=== PATIENT | male | born 1960 | race American Indian/Alaskan Native ===

== ENCOUNTER 2018-10-01 16:15 | Observation (INO) | payer MEDICARE, MEDICAID ==
[2018-10-01 17:10] LABS: #Eosinphils 0.2 thou/uL (0.0-0.7); #Lymphocytes 1.7 thou/uL (1.20-3.40); #Monocytes 0.8 thou/uL (0.11-0.59); #Neutrophils 8.4 thou/uL (1.40-6.50); %Basophils 0.4 % (0.0-1.0); %Eosinophils 1.6 % (0.0-10.0); %Lymphocytes 15.6 % (21.0-51.0); %Monocytes 7.4 % (0.0-10.0); Hemoglobin 15.6 g/dL (14.0-18.0); Mean Corpuscular Hemoglobin 29.1 pg (27.0-31.0); Mean Platelet Volume 10.1 fL (7.4-10.4); Platelet Count 168 thou/uL (130-400); Red Blood Cell (RBC) Count 5.35 mill/uL (4.70-6.10); White Blood Cell (WBC) Count 11.1 thou/uL (4.8-10.8)
[2018-10-01 17:49] LABS: CKMB 5.1 ng/mL (0-6.6)
--- NOTE | 2018-10-01 17:52 | RAD ---
EXAM: CHEST ONE VIEW HISTORY: Cough. Hyperglycemia. COMPARISON: None FINDINGS: Cardiac silhouette is at the upper limits of normal and magnified by projection. The pulmonary vascul ature is within normal limits. The lungs are clear. The osseous structures are intact. IMPRESSION: No acute cardiopulmonary process.
[2018-10-01 17:54] LABS: ALT (SGPT) 12 U/L (8-55); AST (SGOT) 11 U/L (5-34); Albumin 3.1 g/dL (3.5-5.0); Alkaline Phosphatase 109 U/L (40-150); Anion Gap 17 mmol/L (10-20); BUN (Urea Nitrogen) 24 mg/dL (8.4-25.7); Bilirubin, Total 0.5 mg/dL (0.2-1.2); Calc. Creatinine Clearance 0 mL/min (70-130); Calcium 8.8 mg/dL (7.8-10.44); Carbon Dioxide 22 mmol/L (22-29); Chloride 103 mmol/L (98-107); Estimated GFR-MDRD 64; Globulin 3.5 g/dL (2.4-3.5); Glucose 291 mg/dL (70-105); Potassium 4.5 mmol/L (3.5-5.1); Protein, Total 6.6 g/dL (6.0-8.3); Sodium 137 mmol/L (136-145)
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
[2018-10-01] MEDS ORDERED: Aspirin Chewable 81 MG TAB ONE (18:40)
[2018-10-01] MEDS ORDERED: Furosemide 40 MG TAB PO SCH (19:50)
[2018-10-01] MEDS ORDERED: Dextrose 50% Abboject 50 ML SYRINGE SLOW IVP PRN (19:50)
[2018-10-01] MEDS ORDERED: Calcium Carbonate 500 MG ChewTAB PO PRN (19:50)
[2018-10-01] MEDS ORDERED: Dextrose 5% in Water 1,000 ML IV PRN (19:50)
[2018-10-01 20:08] LABS: Hemoglobin A1c 8.8 % (4.0-6.0)
[2018-10-01] MEDS ORDERED: Insulin Glargine 40 UNITS in Pre-Filled Syringe 1 EACH SC SCH (21:00)
[2018-10-01 21:01] LABS: Troponin I 0.031 ng/mL (< 0.028)
[2018-10-01] MEDS: Nicotine 14 MG PATCH TOP SCH ×2 (21:23→21:28)
[2018-10-01] MEDS: Tamsulosin HCl 0.4 MG CAP PO SCH (21:24)
[2018-10-01] MEDS ORDERED: Vancomycin HCl 1.5 GM in Sodium Chloride 0.9% 250 ML 300 ML IVPB SCH (23:00)
[2018-10-01 23:22] LABS: Bilirubin Negative (Negative); Blood, Urine Moderate (Negative); Clarity CLEAR (Clear); Glucose, Urine (Dipstick) >=1000 mg/dL (Negative); Leukocyte Negative (Negative); Nitrite Negative (Negative); Protein, Urine (Dipstick) > or equal to 300 mg/dL (Neg-Trace); Specific Gravity, Urine 1.021 (1.002-1.036)
[2018-10-01 23:25] LABS: Bacteria/HPF None Seen HPF (None Seen); Hyaline Casts/LPF 0-3 HYALINE CAST LPF (0-3 Hyaline); Pathc Cast-AUWi Flag 0.68 (0-2.49); RBC/HPF 21-50 HPF (0-3); Squamous Epithelial 0-3 HPF (0-3); WBC/HPF 0-3 HPF (0-3)
[2018-10-01 23:28] LABS: Troponin I 0.035 ng/mL (< 0.028)
[2018-10-02] MEDS: Piperacillin/Tazobactam 3.375 GM in Sodium Chloride 0.9% 100 ML IVPB SCH ×2 (00:08→05:51)
[2018-10-02] MEDS ORDERED: Apixaban 5 MG TAB PO SCH (01:15)
[2018-10-02] MEDS ORDERED: Melatonin 3 MG TAB PO PRN (01:47)
[2018-10-02] MEDS ORDERED: Acetaminophen 325 MG TAB PO PRN (01:48)
[2018-10-02] MEDS: HumaLOG 300 UNITS/3 ML VIAL SC PRN ×2 (05:54→12:38)
[2018-10-02 06:15] LABS: Band 1 % (5-11); Hemoglobin 13.3 g/dL (14.0-18.0); Lymphocytes 8 % (21-51); MDiff Complete? YES; Mean Corpuscular HGB CONC 32.6 g/dL (32.0-36.0); Mean Corpuscular Hemoglobin 29.8 pg (27.0-31.0); Mean Corpuscular Volume 91.6 fL (78.0-98.0); Mean Platelet Volume 10.8 fL (7.4-10.4); Monocytes 4 % (0-10); Neutrophil 86 % (42-75); Platelet Count 145 thou/uL (130-400); Platelet Morphology Comment Appears Adequate; RBC Distribution Width 15.3 % (11.5-14.5); RBC Morphology Normal; Reactive Lymphocytes 1 % (0-10); Red Blood Cell (RBC) Count 4.45 mill/uL (4.70-6.10); White Blood Cell (WBC) Count 8.8 thou/uL (4.8-10.8)
[2018-10-02 06:20] LABS: Anion Gap 13 mmol/L (10-20); BUN (Urea Nitrogen) 24 mg/dL (8.4-25.7); Calc. Creatinine Clearance 70 mL/min (70-130); Calcium 8.2 mg/dL (7.8-10.44); Carbon Dioxide 23 mmol/L (22-29); Cardiac Risk 7.1 (Less than 4.5); Chloride 104 mmol/L (98-107); Cholesterol 127 mg/dl (< 200 Desired); Estimated GFR-MDRD 56; Glucose 484 mg/dL (70-105); HDL Cholesterol 18 mg/dL (>60 Neg Risk); LDL Cholesterol, Calculated 44 mg/dL; Potassium 3.8 mmol/L (3.5-5.1); Sodium 136 mmol/L (136-145); Triglycerides 326 mg/dL (Less than 150)
--- NOTE | 2018-10-02 06:47 | PDOC.FM ---
- Subjective Subjective: Pt refused stress test stating that he has a bad feeling about it and has had a family member have a heart attack with a stress test. He is decisional at the time. He denies chest pain, SOB, suprapubic pain, burning on urination, nausea, or vomiting. He reports a history of diarrhea but none since he has been here. He reports RLQ tenderness. - Objective MAR Reviewed: Yes Vital Signs & Weight: Vital Signs (12 hours) Temp Pulse Resp BP Pulse Ox 10/02/18 04:10 98.2 F 88 18 163/81 H 94 L 10/01/18 23:15 98.7 F 95 20 159/74 H 95 10/01/18 20:00 97 F L 92 92 H 165/90 H 97 Weight Admit Weight 80.286 kg Weight 80.286 kg I&O: 09/30/18 10/01/18 10/02/18 06:59 06:59 06:59 Intake Total 1170 Output Total 775 Balance 395 Result Diagrams: 10/02/18 05:49 10/02/18 05:49 Phys Exam - Physical Examination Constitutional: NAD HEENT: moist MMs Neck: no JVD, full ROM Respiratory: no wheezing, clear to auscultation bilateral Cardiovascular: RRR, no significant murmur Gastrointestinal: soft, positive bowel sounds RLQ ttp mildly distended Musculoskeletal: edema present (1+ pitting edema) Psychiatric: normal affect, A&O x 3 Skin: cap refill <2 seconds Dx/Plan (1) CHF (congestive heart failure) Code(s): I50.9 - HEART FAILURE, UNSPECIFIED Status: Acute (2) Elevated troponin Code(s): R74.8 - ABNORMAL LEVELS OF OTHER SERUM ENZYMES Status: Acute (3) Foot ulcer due to secondary DM Code(s): E13.621 - OTHER SPECIFIED DIABETES MELLITUS WITH FOOT ULCER; L97.509 - NON-PRESSURE CHRONIC ULCER OTH PRT UNSP FOOT W UNSP SEVERITY Status: Acute (4) HLD (hyperlipidemia) Code(s): E78.5 - HYPERLIPIDEMIA, UNSPECIFIED Status: Chronic (5) HTN (hypertension) Code(s): I10 - ESSENTIAL (PRIMARY) HYPERTENSION Status: Chronic (6) Insulin dependent diabetes mellitus Code(s): E11.9 - TYPE 2 DIABETES MELLITUS WITHOUT COMPLICATIONS; 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 - 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 OF INSULIN Status: Chronic - Plan Plan: This is a 58 yo male with a pmh of CAD, HTN, HLD, DM2, CHF Indeterminate troponin with Twave inversion -Multiple risk factors, heart score of 5 -Asymptomatic -NPO, holding stress test until further notice, will change diet later this morning -ASA daily RLQ abdominal pain -Lipase negative, will monitor Afib -Rate controlled, continue home meds Malodorous urine -UA not supportive of UTI -Likely deescalate abx IDDMII -A1c 8.8 -Continue home med dose, Lantus 45U qAM, 48U qPM -SSI, ACHS glu checks CHF -Strict I&Os -Home lasix -continue home meds Hx of CVA -PT/OT consulted -CM for rehab placement -Wheelchair bound Right diabetic foot ulcer -Consult wound care HLD -Continue home meds HTN -Continue home meds Tobacco abuse -Nicotine patch PRN -Encourage cessation BPH -Continue home meds Addendum - Attending - Attending Attestation Date/Time: 10/02/18 1130 I personally evaluated the patient and discussed the management with Dr. Suarez I agree with the History, Examination, Assessment and Plan documented above with any addition or exceptions noted below. Patient declines stress testing he is aware of our concern for heart disease and benefits of obtaining more information. He agrees to echocardiogram will continue to evaluate and intensify BS control.
[2018-10-02] MEDS ORDERED: Insulin Glargine 45 UNITS in Pre-Filled Syringe 1 EACH SC SCH ×2 (09:00→21:00)
[2018-10-02] MEDS: Apixaban 5 MG TAB PO SCH ×2 (09:31→22:00)
[2018-10-02] MEDS: Aspirin 325 mg Enteric Coated Tablet PO SCH (09:31)
[2018-10-02] MEDS: Losartan 25 MG TAB PO SCH (09:31)
[2018-10-02] MEDS: Furosemide 40 MG TAB PO SCH (09:31)
[2018-10-02] MEDS: Nicotine 21 MG PATCH TD SCH (09:59)
--- NOTE | 2018-10-02 11:56 | ULT ---
EXAM: Renal ultrasound: INDICATIONS: Hematuria COMPARISON: None. FINDINGS: Both kidneys have a normal sonographic appearance. No evidence of hydronephrosis. Cortical echogenicity is normal. Bladder is mildly distended. Mild bladder wall thickening is noted. Bilateral ureteral jets identifie d. Tiny amount of free fluid seen superior to both kidneys. IMPRESSION: Mild bladder wall thickening. Consider cystitis. Tiny amount of free fluid superior to both kidneys.
[2018-10-02] MEDS ORDERED: cefTRIAXone\\ROCEPHIN 2 GM in Sodium Chloride 0.9% 100 ML IVPB SCH (12:00)
[2018-10-02] MEDS ORDERED: Metoprolol Tartrate 100 MG TAB PO ONE (12:33)
[2018-10-02] MEDS: Tamsulosin HCl 0.4 MG CAP PO SCH (22:01)
[2018-10-02] MEDS ORDERED: Labetalol HCl 100 MG/20 ML VIAL SLOW IVP SCH (23:45)
[2018-10-02] MEDS ORDERED: diphenhydrAMINE 25 MG CAP PO SCH (23:45)
--- NOTE | 2018-10-03 06:32 | PDOC.FM ---
- Subjective Subjective: Mr. Green is resting comfortably in bed, complaining of a headache and sore throat. denies CP or SOB - Objective Vital Signs & Weight: Vital Signs (12 hours) Temp Pulse Resp BP BP Pulse Ox 10/03/18 03:45 97.7 F 76 16 184/97 H 98 10/03/18 00:25 183/93 H 10/03/18 00:10 89 186/107 H 10/02/18 23:33 186/108 H 10/02/18 23:15 87 197/93 H 10/02/18 22:00 98.1 F 81 18 175/84 H 96 Weight Admit Weight 80.286 kg Weight 80.286 kg I&O: 10/01/18 10/02/18 10/03/18 06:59 06:59 06:59 Intake Total 1170 1442 Output Total 775 Balance 395 1442 Result Diagrams: 10/03/18 06:00 10/03/18 06:00 Phys Exam - Physical Examination Constitutional: NAD HEENT: moist MMs Neck: no JVD Gastrointestinal: no distention Musculoskeletal: no edema Neurological: moves all 4 limbs Psychiatric: normal affect Skin: no rash Dx/Plan (1) CHF (congestive heart failure) Code(s): I50.9 - HEART FAILURE, UNSPECIFIED Status: Acute (2) Elevated troponin Code(s): R74.8 - ABNORMAL LEVELS OF OTHER SERUM ENZYMES Status: Acute (3) HLD (hyperlipidemia) Code(s): E78.5 - HYPERLIPIDEMIA, UNSPECIFIED Status: Chronic (4) HTN (hypertension) Code(s): I10 - ESSENTIAL (PRIMARY) HYPERTENSION Status: Chronic (5) Insulin dependent diabetes mellitus Code(s): E11.9 - TYPE 2 DIABETES MELLITUS WITHOUT COMPLICATIONS; 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 Status: Chronic - Plan Plan: Indeterminate troponin with Twave inversion - Multiple risk factors, heart score of 5, Asymptomatic - pt declining stress test at this time, r/b/i explained, pt has intact decision making capacity - ASA daily RLQ abdominal pain -Lipase negative, will monitor Afib -Rate controlled, continue home meds Malodorous urine -UA not supportive of UTI -dc abx IDDMII -A1c 8.8 -Continue home med dose, Lantus 45U qAM, 48U qPM -SSI, ACHS glu checks - consider increasing lantus dose CHF -Strict I&Os -Home lasix -continue home meds Hx of CVA -PT/OT consulted -CM for SNF, rehab screen -Wheelchair bound Right diabetic foot ulcer -Consult wound care HLD -Continue home meds HTN -Continue home meds - consider adding additional medication today for consistently elevated BPs Tobacco abuse -Nicotine patch PRN -Encourage cessation BPH -Continue home meds Dispo: tighter BP and glu control today, rehab vs SNF
[2018-10-03 06:43] LABS: Band 1 % (5-11); Eosinophils 2 % (0-10); Hemoglobin 14.8 g/dL (14.0-18.0); Lymphocytes 26 % (21-51); MDiff Complete? YES; Mean Corpuscular HGB CONC 31.3 g/dL (32.0-36.0); Mean Corpuscular Hemoglobin 28.5 pg (27.0-31.0); Mean Corpuscular Volume 91.2 fL (78.0-98.0); Mean Platelet Volume 10.1 fL (7.4-10.4); Monocytes 3 % (0-10); Neutrophil 66 % (42-75); Platelet Count 157 thou/uL (130-400); Platelet Morphology Comment Appears Adequate; RBC Distribution Width 15.1 % (11.5-14.5); Reactive Lymphocytes 1 % (0-10); Red Blood Cell (RBC) Count 5.19 mill/uL (4.70-6.10); White Blood Cell (WBC) Count 8.8 thou/uL (4.8-10.8)
[2018-10-03 06:49] LABS: Anion Gap 14 mmol/L (10-20); BUN (Urea Nitrogen) 21 mg/dL (8.4-25.7); Calc. Creatinine Clearance 89 mL/min (70-130); Calcium 8.6 mg/dL (7.8-10.44); Carbon Dioxide 24 mmol/L (22-29); Chloride 106 mmol/L (98-107); Estimated GFR-MDRD 73; Glucose 221 mg/dL (70-105); Potassium 3.9 mmol/L (3.5-5.1); Sodium 140 mmol/L (136-145)
[2018-10-03] MEDS: Aspirin 325 mg Enteric Coated Tablet PO SCH (08:09)
[2018-10-03] MEDS: Apixaban 5 MG TAB PO SCH (08:09)
[2018-10-03] MEDS: Losartan 25 MG TAB PO SCH (08:09)
[2018-10-03] MEDS: Furosemide 40 MG TAB PO SCH (08:10)
[2018-10-03] MEDS ORDERED: Digoxin 0.125 MG TAB PO SCH (09:00)
[2018-10-03] MEDS ORDERED: Insulin Glargine 50 UNITS in Pre-Filled Syringe 1 EACH SC SCH ×2 (09:00→21:00)
[2018-10-03] MEDS ORDERED: hydrALAZINE 20 MG/ML VIAL SLOW IVP PRN (09:11)
[2018-10-03 11:16] VITALS: TEMP 98.7
[2018-10-03] MEDS: HumaLOG 300 UNITS/3 ML VIAL SC PRN ×2 (11:20→18:34)
[2018-10-03] MEDS: Nicotine 21 MG PATCH TD SCH (11:20)
--- NOTE | 2018-10-03 14:32 | PRG ---
DATE OF SERVICE: 10/03/2018 Mr. Green is a physeal dave, who was admitted with poorly-controlled diabetes and hyperglycemia. He was also initially noted to have an odiferous urine, but has no symptoms of UTI such as dysuria, frequency, or burning on urination. I feel it would be okay to stop his broad-spectrum antibiotics. He was noticed to have microhematuria on his initial urinalysis, which to my knowledge has not been worked up. We did perform a renal ultrasound yesterday there was mild bladder wall thickening with a tiny minor free fluid superior to both kidneys. Both kidneys had a normal sonographic appearance. He likely will need an outpatient cystoscopy to further evaluate his microhematuria. In the event, he is nearing a point where he can be discharged and have other testing done as an outpatient. Job ID: [id number]
[2018-10-03 14:33] VITALS: BMI 27.1
[2018-10-03 15:40] VITALS: BP 139/82
--- NOTE | 2018-10-03 23:53 | DIS ---
DATE OF ADMISSION: 10/01/2018 DATE OF DISCHARGE: 10/03/2018 CONSULTS: None. IMAGING: Chest x-ray significant for no acute cardiothoracic abnormality. Renal ultrasound significant for mild bladder wall thickening, consider cystitis , tiny minor free fluid superior to both kidneys. Echocardiogram significant for ejection fraction visually estimated at 50% to 55 %, noted atrial fibrillation, inferoseptal and inferoapical hypokinesis. DISCHARGE MEDICATIONS: 1. Flomax 0.4 mg daily. 2. Losartan 100 mg p.o. q.a.m. 3. Furosemide 40 mg p.o. q.a.m. 4. Eliquis 5 mg p.o. b.i.d. 5. Insulin 45 units subcu at bedtime. 6. Insulin detemir 50 units subcu q.a.m. 7. Augmentin for 7 days. 8. Digoxin 0.125 mg p.o. daily. 9. Sertraline 50 mg p.o. daily. PRIMARY DIAGNOSIS: Indeterminate troponin with T-wave inversion. SECONDARY DIAGNOSES: 1. Right lower quadrant abdominal pain. 2. Atrial fibrillation. 3. Malodorous urine. 4. Insulin-dependent diabetes mellitus, type 2. 5. Congestive heart failure. 6. History of cerebrovascular accident. 7. Right diabetic foot ulcer. 8. Hyperlipidemia. 9. Hypertension. 10. Tobacco abuse. 11. BPH. HISTORY OF PRESENT ILLNESS/HOSPITAL COURSE: Mr. Green is a 58-year-old male with past medical history of diabetes, hypertension, hyperlipidemia, atrial fibrillation, on anticoagulation, presenting with hyperglycemia as noted by home health. Upon presentation to the emergency department, he was told to have malodorous urine as well as blood glucose as above 300. He was determined not to be in DKA, but did have indeterminate troponin at that time. Denied any cardiac type symptoms. He reported a history of CVA and that at one time, completed rehab. He was able to walk, but is currently wheelchair bound. The patient was admitted to the hospital for trending of troponins. It was recommended that the patient to have a cardiac stress test. After risks, benefits and indications were explained, the patient declined cardiac stress at this time. The patient had elevated blood glucose and blood pressure throughout his hospital stay. Additional blood pressure medicines and increasing in his Lantus were added on. The patient was tolerating p.o. well and able to transfer to wheelchair, but due to deconditioning from the patient's recent medical complications, it was determined that inpatient rehab would be best for successful patient return home. DISCHARGE INSTRUCTIONS: Location: Inpatient rehab. Diet: Heart healthy, low-sodium diabetic. Activity: As tolerated with PT and OT. Followup: Follow up with Dr. Farris at inpatient rehab. Job ID: [id number] [facility]
[2018-10-04 07:19] LABS: Total PSA 0.6 ng/mL (0.0-4.0)
[2018-10-04] MEDS ORDERED: Amlodipine 5 MG TAB PO SCH (09:00)
== END 2018-10-03 18:45 | disposition home health service (06) ==
LOC: ERS 16:15 → 2NO 19:42
PROVIDERS: ADMIT Family Medicine; ATTEND Family Medicine
DX: R74.8 Abnormal levels of other serum enzymes (principal); E11.65 Type 2 diabetes mellitus with hyperglycemia; R10.31 Right lower quadrant pain; I11.0 Hypertensive heart disease with heart failure; I50.9 Heart failure, unspecified; E78.5 Hyperlipidemia, unspecified; E11.621 Type 2 diabetes mellitus with foot ulcer; L97.519 Non-pressure chronic ulcer of other part of right foot with unspecified severity; F17.210 Nicotine dependence, cigarettes, uncomplicated; N40.0 Benign prostatic hyperplasia without lower urinary tract symptoms; I25.2 Old myocardial infarction; F10.11 Alcohol abuse, in remission; I48.2 Chronic atrial fibrillation; I25.10 Atherosclerotic heart disease of native coronary artery without angina pectoris; Z79.01 Long term (current) use of anticoagulants; Z79.4 Long term (current) use of insulin; Z79.899 Other long term (current) drug therapy; Z86.73 Personal history of transient ischemic attack (TIA), and cerebral infarction without residual deficits; Z88.5 Allergy status to narcotic agent; Z88.6 Allergy status to analgesic agent; Z99.3 Dependence on wheelchair
CPT/HCPCS: 71045; 76770; 80048 ×2; 80053; 80061; 81001; 82010; 82553; 82962 ×3; 83036; 83690; 83880; 84145; 84153; 84154; 84484 ×2; 85007 ×2; 85025; 85027 ×2; 87040; 87077; 87086; 93005; 93306; 94760 ×2; 96361; 96374; 96375; 97110; 97139 ×4; 97530 ×3; 99285; G0378 ×2; 36415; 36416; 96360; J0360; J0696; J1825; J2543; J3370; J3490; J7050; Q0163

== ENCOUNTER 2019-08-03 20:27 | Inpatient (IN) | payer MEDICARE, MEDICAID ==
[~2019-08-03 20:27] MED LIST: Rocuronium Bromide 10 MG/ML (10ML VIAL) ONE; Sodium Chloride 0.9% (PF) 10 ML VIAL ONE
[2019-08-03] MEDS ORDERED: Piperacillin/Tazobactam 4.5 GM VIAL ONE (20:56)
[2019-08-03] MEDS ORDERED: Furosemide 20 MG/2 ML VIAL ONE (20:56)
[2019-08-03 21:15] LABS: #Eosinphils 0.1 thou/uL (0.0-0.7); #Lymphocytes 1.2 thou/uL (1.20-3.40); #Neutrophils 17.3 thou/uL (1.40-6.50); %Basophils 0.2 % (0.0-1.0); %Eosinophils 0.4 % (0.0-10.0); %Lymphocytes 6.3 % (21.0-51.0); %Monocytes 5.1 % (0.0-10.0); %Neutrophils 87.9 % (42.0-75.0); Hemoglobin 13.1 g/dL (14.0-18.0); Mean Corpuscular HGB CONC 33.4 g/dL (32.0-36.0); Mean Corpuscular Hemoglobin 30.1 pg (27.0-31.0); Mean Corpuscular Volume 89.9 fL (78.0-98.0); Mean Platelet Volume 9.2 fL (7.4-10.4); Platelet Count 290 thou/uL (130-400); RBC Distribution Width 13.1 % (11.5-14.5); Red Blood Cell (RBC) Count 4.37 mill/uL (4.70-6.10); White Blood Cell (WBC) Count 19.7 thou/uL (4.8-10.8)
--- NOTE | 2019-08-03 21:17 | RAD ---
PORTABLE CHEST: 08/03/19 HISTORY: Peripheral edema. COMPARISON: 10/15/18. The lungs are clear. Heart and mediastinum unremarkable. Vascular markings normal. IMPRESSION: Unremarkable chest. POS: [facility]
[2019-08-03 21:38] LABS: ALT (SGPT) Less than 7 U/L (8-55); AST (SGOT) 6 U/L (5-34); Albumin 2.9 g/dL (3.5-5.0); Alkaline Phosphatase 116 U/L (40-110); Anion Gap 16 mmol/L (10-20); BUN (Urea Nitrogen) 27 mg/dL (8.4-25.7); Bilirubin, Total 0.2 mg/dL (0.2-1.2); CK (CPK) 76 U/L (30-200); Calc. Creatinine Clearance 0 mL/min (70-130); Calcium 8.2 mg/dL (7.8-10.44); Carbon Dioxide 20 mmol/L (22-29); Chloride 99 mmol/L (98-107); Estimated GFR-MDRD 42; Globulin 3.6 g/dL (2.4-3.5); Glucose 336 mg/dL (70-105); Magnesium 1.6 mg/dL (1.6-2.6); Potassium 3.5 mmol/L (3.5-5.1); Protein, Total 6.5 g/dL (6.0-8.3); Sodium 131 mmol/L (136-145)
[2019-08-03] MEDS ORDERED: Nicotine 21 MG PATCH TOP SCH (22:00)
[2019-08-03] MEDS ORDERED: Vancomycin 1 GM/200 ML BAG ONE (22:12)
[2019-08-03] MEDS ORDERED: Acetaminophen 500 MG TAB ONE (22:12)
[2019-08-03] MEDS ORDERED: Calcium Carbonate 500 MG ChewTAB PO PRN (23:02)
[2019-08-03] MEDS ORDERED: Senokot S 8.6-50 MG TAB PO PRN (23:02)
[2019-08-03] MEDS ORDERED: Vancomycin HCl 1 GM in Sodium Chloride 0.9% 250 ML 300 ML IVPB SCH (23:02)
[2019-08-03] MEDS ORDERED: Bisacodyl 10 MG SUPP PR PRN (23:02)
[2019-08-03] MEDS ORDERED: Guaifenesin DM 100-10/5 ML UDCUP PO PRN (23:02)
[2019-08-03] MEDS ORDERED: Ondansetron PF 4 MG/2 ML Vial IVP PRN (23:02)
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
[2019-08-04 00:08] LABS: Iron 13 ug/dL (65-175); Iron Binding Capacity, Total 179 mcg/dL (261-462)
[2019-08-04] MEDS ORDERED: Acetaminophen 325 MG TAB PO PRN (01:23)
[2019-08-04] MEDS ORDERED: diphenhydrAMINE 25 MG CAP PO PRN (01:29)
[2019-08-04] MEDS ORDERED: traMADol HCl 50 MG TAB PO SCH (01:30)
[2019-08-04] MEDS ORDERED: Piperacillin/Tazobactam 2.25 GM in Sodium Chloride 0.9% 100 ML IVPB SCH ×2 (05:00→13:00)
[2019-08-04] MEDS ORDERED: Calcium Carbonate 500 MG ChewTAB PO PRN (05:15)
[2019-08-04] MEDS ORDERED: Bisacodyl 10 MG SUPP PR PRN (05:15)
[2019-08-04] MEDS ORDERED: Ondansetron PF 4 MG/2 ML Vial IVP PRN (05:16)
[2019-08-04] MEDS ORDERED: Senokot S 8.6-50 MG TAB PO PRN (05:17)
[2019-08-04] MEDS ORDERED: Insulin Regular 300 UNITS/3 ML VIAL SC SCH (05:30)
[2019-08-04] MEDS: Furosemide 40 MG/4 ML VIAL SLOW IVP SCH ×2 (05:36→14:50)
[2019-08-04] MEDS: Piperacillin/Tazobactam 2.25 GM in Sodium Chloride 0.9% 100 ML IVPB SCH ×3 (05:56→20:02)
[2019-08-04] MEDS ORDERED: Furosemide 40 MG/4 ML VIAL SLOW IVP SCH (06:00)
[2019-08-04] MEDS: Digoxin 0.125 MG TAB PO SCH (07:44)
[2019-08-04] MEDS: Metoprolol Tartrate 25 MG TAB PO SCH ×2 (07:44→20:08)
[2019-08-04] MEDS ORDERED: Digoxin 0.125 MG TAB PO SCH (09:00)
[2019-08-04] MEDS ORDERED: FLU VACC QS2019-20(6MOS UP)/PF 60 MCG/0.5 ML SYRINGE IM ONE (09:00)
[2019-08-04] MEDS ORDERED: Enoxaparin Sodium 30 MG/0.3 ML SYRINGE SC SCH ×2 (09:00)
[2019-08-04] MEDS ORDERED: Metoprolol Tartrate 25 MG TAB PO SCH (09:00)
[2019-08-04] MEDS ORDERED: Non-Formulary Item 1 EACH (Insulin Detemir [Levemir Flextouch] 20 UNIT) SQ SCH (09:00)
[2019-08-04] MEDS ORDERED: Famotidine 20 MG TAB PO SCH ×2 (09:00)
--- NOTE | 2019-08-04 09:46 | ULT ---
Bilateral lower extremity arterial vascular duplex with color and spectral Doppler imaging: HISTORY: Peripheral vascular disease FINDINGS: Right and left lower extremities are evaluated from the groin to ankle including visualized common fe moral artery, profunda femoral artery, superficial femoral artery, popliteal artery, anterior tibial artery, posterior tibial artery, and dorsalis pedis arteries. There is very abnormal monophasic flow throughout the entirety of both right and left lower extremiti es. Minimal increased velocity in the right profunda artery of 148 cm/s. There is also some minimal increased flow in the proximal left superficial femoral artery, at 132 cm/s. IMPRESSION: Extensive bilateral diffuse atherosclerotic arterial vascular disease with abnormal monophasic wavefo tramaine throughout the entirety of both lower extremities as well as some focal increased velocity in the right profunda femoral artery and left proximal superficial femoral artery.
[2019-08-04] MEDS: Insulin Glargine 20 UNITS in Pre-Filled Syringe 1 EACH SC SCH ×2 (09:59→20:11)
[2019-08-04] MEDS: traMADol HCl 50 MG TAB PO PRN ×2 (11:49→16:56)
[2019-08-04 11:52] LABS: Hemoglobin 12.1 g/dL (14.0-18.0); Mean Corpuscular HGB CONC 32.2 g/dL (32.0-36.0); Mean Corpuscular Hemoglobin 29.3 pg (27.0-31.0); Mean Corpuscular Volume 91.1 fL (78.0-98.0); Mean Platelet Volume 9.3 fL (7.4-10.4); Platelet Count 291 thou/uL (130-400); RBC Distribution Width 13.2 % (11.5-14.5); Red Blood Cell (RBC) Count 4.11 mill/uL (4.70-6.10); White Blood Cell (WBC) Count 14.9 thou/uL (4.8-10.8)
[2019-08-04 11:53] LABS: #Eosinphils 0.1 thou/uL (0.0-0.7); #Lymphocytes 1.1 thou/uL (1.20-3.40); #Monocytes 0.8 thou/uL (0.11-0.59); #Neutrophils 12.9 thou/uL (1.40-6.50); %Basophils 0.2 % (0.0-1.0); %Eosinophils 0.6 % (0.0-10.0); %Lymphocytes 7.2 % (21.0-51.0); %Monocytes 5.4 % (0.0-10.0); %Neutrophils 86.6 % (42.0-75.0)
[2019-08-04 12:12] LABS: Anion Gap 14 mmol/L (10-20); BUN (Urea Nitrogen) 24 mg/dL (8.4-25.7); Calc. Creatinine Clearance 57 mL/min (70-130); Carbon Dioxide 22 mmol/L (22-29); Chloride 101 mmol/L (98-107); Estimated GFR-MDRD 46; Glucose 261 mg/dL (70-105); Potassium 3.1 mmol/L (3.5-5.1); Sodium 134 mmol/L (136-145)
[2019-08-04 12:24] LABS: Band 1 % (5-11); Eosinophils 1 % (0-10); Lymphocytes 8 % (21-51); MDiff Complete? YES; Monocytes 5 % (0-10); Neutrophil 84 % (42-75); RBC Morphology Normal
[2019-08-04] MEDS ORDERED: Dextrose 5% in Water 1,000 ML IV PRN (12:33)
[2019-08-04] MEDS ORDERED: Dextrose 50% Abboject 50 ML SYRINGE SLOW IVP PRN (12:33)
[2019-08-04] MEDS: HumaLOG 300 UNITS/3 ML VIAL SC PRN (13:05)
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
--- NOTE | 2019-08-04 14:29 | PDOC.HOSPP ---
- Subjective Subjective: Seen and examined. Patient has not walked in the last six weeks to two months. He states that he "I pee in his sleep, and this makes his leg wounds worse, because they are wet". When I discussed with the patient about having a surgeon look at his legs he states that he would refuse any surgery and does not want to see any surgeons. Will have wound care come evaluate the legs and sacral decubitus lesion. Patient on appropriate antibiotics. Patient states that he would like to go to rehab. - Objective Vital Signs & Weight: Vital Signs (12 hours) Temp Pulse Resp BP Pulse Ox 08/04/19 12:53 90 16 97 08/04/19 12:18 98.1 F 94 20 155/80 H 95 08/04/19 08:00 95 08/04/19 07:56 99.2 F 101 H 20 151/82 H 95 08/04/19 07:44 101 H 08/04/19 07:02 90 18 100 08/04/19 05:04 98.3 F 85 14 140/79 93 L Weight Weight 173 lb 3 oz I&O: 08/03/19 08/04/19 08/05/19 06:59 06:59 06:59 Output Total 200 Balance -200 Result Diagrams: 08/04/19 11:20 08/04/19 11:20 Additional Labs: Accuchecks 08/04/19 08/04/19 11:56 05:04 POC Glucose 294 H 417 H Radiology Reviewed by me: Yes Hospitalist ROS - Review of Systems All other systems reviewed; all pertinent +/- noted in HPI/Subj - Medication Medications: Active Medications Generic Name Dose Route Start Last Admin Trade Name Freq PRN Reason Stop Dose Admin Albuterol/Ipratropium 3 ml 08/04/19 07:00 08/04/19 12:53 Duoneb NEB 3 ml [id number] RONI Administration Digoxin 0.125 mg 08/04/19 09:00 08/04/19 07:44 Lanoxin PO 0.125 mg DAILY RONI Administration Furosemide 40 mg 08/04/19 06:00 08/04/19 05:36 Lasix SLOW IVP 40 mg 0600,1400 RONI Administration Insulin Glargine 20 units/ 0.2 mls @ 0 mls/hr 08/04/19 09:00 08/04/19 09:59 Miscellaneous Medication SC 0.2 mls BID RONI Administration Piperacillin Sod/Tazobactam 100 mls @ 200 mls/hr 08/04/19 05:00 08/04/19 12: 12 Sod 2.25 gm/ Sodium Chloride IVPB 100 mls 0500,1300,2100 RONI Administration Insulin Human Lispro 0 units 08/04/19 12:33 08/04/19 13:05 Humalog SC 6 unit .MODERATE SLIDING SC PRN Administration Moderate Correctional Scale Metoprolol Tartrate 25 mg 08/04/19 09:00 08/04/19 07:44 Lopressor PO 25 mg BID RONI Administration Tramadol HCl 100 mg 08/04/19 10:15 08/04/19 11:49 Ultram PO 100 mg Q4H PRN Administration Moderate to Severe Pain (6-10) - Exam General Appearance: NAD, awake alert Eye: anicteric sclera ENT: normocephalic atraumatic, moist mucosa Neck: supple, symmetric, no lymphadenopathy Heart: no murmur, no gallops, no rubs Respiratory: CTAB, no wheezes, no rales, no ronchi, no tachypnea Gastrointestinal: soft, non-tender, non-distended, no guarding, no rigidity Extremities: 2+ LE edema Extremities - other findings: LE skin wounds - see wound pictures for details. Skin - other findings: Decubitus ulcer present on admission - see wound care pictures for details Neurological: cranial nerve grossly intact, no focal deficits Musculoskeletal: generalized weakness Psychiatric: A&O x 3 Hosp A/P (1) Decubitus skin ulcer Code(s): L89.90 - PRESSURE ULCER OF UNSPECIFIED SITE, UNSPECIFIED STAGE Status : Acute (2) Sepsis Code(s): A41.9 - SEPSIS, UNSPECIFIED ORGANISM Status: Acute (3) Ataxia Code(s): R27.0 - ATAXIA, UNSPECIFIED Status: Acute (4) Tobacco abuse Code(s): Z72.0 - TOBACCO USE Status: Acute (5) Alcoholism Code(s): F10.20 - ALCOHOL DEPENDENCE, UNCOMPLICATED Status: Acute (6) CHF (congestive heart failure) Code(s): I50.9 - HEART FAILURE, UNSPECIFIED Status: Acute (7) Foot ulcer due to secondary DM Code(s): E13.621 - OTHER SPECIFIED DIABETES MELLITUS WITH FOOT ULCER; L97.509 - NON-PRESSURE CHRONIC ULCER OTH PRT UNSP FOOT W UNSP SEVERITY Status: Acute (8) HLD (hyperlipidemia) Code(s): E78.5 - HYPERLIPIDEMIA, UNSPECIFIED Status: Chronic (9) HTN (hypertension) Code(s): I10 - ESSENTIAL (PRIMARY) HYPERTENSION Status: Chronic (10) Insulin dependent diabetes mellitus Code(s): E11.9 - TYPE 2 DIABETES MELLITUS WITHOUT COMPLICATIONS; Z79.4 - ASSISTED (CURRENT) USE OF INSULIN Status: Chronic (11) Protein-calorie malnutrition, moderate Code(s): E44.0 - MODERATE PROTEIN-CALORIE MALNUTRITION Status: Acute - Plan Plan: medical unit palliative care consultation for goals of care, recommendations appreciated general surgery was consulted however the patient adamantly refused to talk to any surgeons and refused to have any surgical procedures done on his legs or any other part of his body broad-spectrum IV antibiotics wound cultures de-escalate to culture and sensitivity as able consider infectious disease consult pending culture and sensitivity acute kidney injury present on admission, improved with IV fluids moderate protein calorie malnutrition present on admission extensive tobacco abuse history, nicotine patch history of alcohol abuse, states he has quit ataxia, has not walked in 6-8 weeks PT/ OT Eval and treat Will likely require sub acute placement long and short acting insulin for glucose control blood pressure control G.I. prophylaxis DVT prophylaxis, full dose eliquis home medication continued
[2019-08-04] MEDS ORDERED: Labetalol HCl 100 MG/20 ML VIAL ONE (14:48)
[2019-08-04] MEDS: cloNIDine 0.2mg/24 Hour PATCH TD SCH (15:00)
[2019-08-04] MEDS: Nicotine 21 MG PATCH TD SCH (20:07)
[2019-08-04] MEDS: Apixaban 5 MG TAB PO SCH (20:07)
[2019-08-04] MEDS: Tamsulosin HCl 0.4 MG CAP PO SCH (20:07)
[2019-08-04] MEDS: Famotidine 20 MG TAB PO SCH (20:08)
[2019-08-04] MEDS: Acetaminophen 325 MG TAB PO PRN (20:08)
[2019-08-04] MEDS ORDERED: Tamsulosin HCl 0.4 MG CAP PO SCH (21:00)
[2019-08-04] MEDS: Vancomycin 1 GM in Premix Bag 1 BAG IVPB SCH (21:09)
[2019-08-04] MEDS ORDERED: Vancomycin 1 GM in Premix Bag 1 BAG IVPB SCH (22:00)
[2019-08-05] MEDS: Piperacillin/Tazobactam 2.25 GM in Sodium Chloride 0.9% 100 ML IVPB SCH ×3 (04:53→20:08)
[2019-08-05] MEDS: Furosemide 40 MG/4 ML VIAL SLOW IVP SCH ×2 (05:02→14:33)
[2019-08-05] MEDS: Famotidine 20 MG TAB PO SCH ×2 (08:53→20:07)
[2019-08-05] MEDS: Metoprolol Tartrate 25 MG TAB PO SCH ×2 (08:53→20:06)
[2019-08-05] MEDS: Amlodipine 5 MG TAB PO SCH (08:53)
[2019-08-05] MEDS: Digoxin 0.125 MG TAB PO SCH (08:53)
[2019-08-05] MEDS: Apixaban 5 MG TAB PO SCH ×2 (08:54→20:05)
[2019-08-05] MEDS: Insulin Glargine 20 UNITS in Pre-Filled Syringe 1 EACH SC SCH ×2 (08:56→21:44)
[2019-08-05] MEDS: traMADol HCl 50 MG TAB PO PRN ×2 (08:58→20:07)
[2019-08-05] MEDS ORDERED: Furosemide 40 MG TAB PO SCH (09:00)
[2019-08-05 09:54] LABS: White Blood Cell (WBC) Count 16.5 thou/uL (4.8-10.8)
[2019-08-05 10:06] LABS: Anion Gap 15 mmol/L (10-20); BUN (Urea Nitrogen) 24 mg/dL (8.4-25.7); Calc. Creatinine Clearance 52 mL/min (70-130); Calcium 7.8 mg/dL (7.8-10.44); Carbon Dioxide 23 mmol/L (22-29); Chloride 98 mmol/L (98-107); Estimated GFR-MDRD 41; Glucose 234 mg/dL (70-105); Sodium 132 mmol/L (136-145)
[2019-08-05] MEDS: Acetaminophen 325 MG TAB PO PRN ×2 (11:01→20:07)
[2019-08-05 11:46] LABS: Large Platelets SLIGHT; Lymphocytes 5 % (21-51); MDiff Complete? YES; Mean Corpuscular Hemoglobin 28.2 pg (27.0-31.0); Mean Corpuscular Volume 90.8 fL (78.0-98.0); Mean Platelet Volume 8.8 fL (7.4-10.4); Monocytes 5 % (0-10); Neutrophil 90 % (42-75); Platelet Count 303 thou/uL (130-400); Platelet Morphology Comment Appears Adequate
[2019-08-05] MEDS: HumaLOG 300 UNITS/3 ML VIAL SC PRN (13:00)
--- NOTE | 2019-08-05 13:09 | PDOC.HOSPP ---
- Subjective Subjective: Seen and examined. Patient states that tramadol is working well for pain. Patient voices dissatisfaction with the food. Patient again refusing any surgical consultation or operations of any sort. Will order an MRI of the lower extremity to rule out osteomyelitis. Blood cultures with no growth to date. Afebrile. No pulmonary symptoms. - Objective Vital Signs & Weight: Vital Signs (12 hours) Temp Pulse Pulse Pulse Resp BP BP 08/05/19 12:38 85 16 08/05/19 12:00 97.9 F 97 18 08/05/19 11:10 84 87 127/70 125/77 08/05/19 08:53 97 08/05/19 08:00 08/05/19 07:50 98.3 F 97 20 08/05/19 07:13 88 16 08/05/19 04:00 99.1 F 87 20 BP Pulse Ox Pulse Ox Pulse Ox 08/05/19 12:38 94 L 08/05/19 12:00 114/72 93 L 08/05/19 11:10 96 98 08/05/19 08:53 08/05/19 08:00 92 L 08/05/19 07:50 134/71 92 L 08/05/19 07:13 95 08/05/19 04:00 127/76 97 Weight Admit Weight 173 lb 2.992 oz Weight 173 lb 2.992 oz I&O: 08/04/19 08/05/19 08/06/19 06:59 06:59 06:59 Intake Total 910 Output Total 200 200 Balance -200 710 Result Diagrams: 08/05/19 09:32 08/05/19 09:32 Additional Labs: Accuchecks 08/05/19 08/05/19 08/04/19 12:08 04:29 20:04 POC Glucose 323 H 161 H 110 08/04/19 16:52 POC Glucose 119 H Radiology Reviewed by me: Yes Hospitalist ROS - Review of Systems All other systems reviewed; all pertinent +/- noted in HPI/Subj - Medication Medications: Active Medications Generic Name Dose Route Start Last Admin Trade Name Freq PRN Reason Stop Dose Admin Acetaminophen 650 mg 08/04/19 05:17 08/05/19 11:01 Tylenol PO 650 mg Q4H PRN Administration Headache/Fever or Pain Albuterol/Ipratropium 3 ml 08/04/19 07:00 08/05/19 12:38 Duoneb NEB 3 ml [id number] RONI Administration Amlodipine Besylate 5 mg 08/05/19 09:00 08/05/19 08:53 Norvasc PO 5 mg DAILY RONI Administration Apixaban 5 mg 08/04/19 21:00 08/05/19 08:54 Eliquis PO 5 mg BID RONI Administration Clonidine 0.2 mg 08/04/19 14:00 08/04/19 15:00 [id number] TD 0.2 mg Q7D RONI Administration Digoxin 0.125 mg 08/04/19 09:00 08/05/19 08:53 Lanoxin PO 0.125 mg DAILY RONI Administration Famotidine 40 mg 08/04/19 21:00 08/05/19 08:53 Pepcid PO 40 mg BID RONI Administration Furosemide 40 mg 08/04/19 06:00 08/05/19 05:02 Lasix SLOW IVP 40 mg 0600,1400 RONI Administration Insulin Glargine 20 units/ 0.2 mls @ 0 mls/hr 08/04/19 09:00 08/05/19 08:56 Miscellaneous Medication SC 0.2 mls BID RONI Administration Vancomycin HCl 1 gm/ Device 200 mls @ 200 mls/hr 08/04/19 22:00 08/04/19 21: 09 IVPB 200 mls Q24HR@2200 RONI Administration Piperacillin Sod/Tazobactam 100 mls @ 200 mls/hr 08/04/19 05:00 08/05/19 04: 53 Sod 2.25 gm/ Sodium Chloride IVPB 100 mls 0500,1300,2100 RONI Administration Insulin Human Lispro 0 units 08/04/19 12:33 08/04/19 13:05 Humalog SC 6 unit .MODERATE SLIDING SC PRN Administration Moderate Correctional Scale Metoprolol Tartrate 25 mg 08/04/19 09:00 08/05/19 08:53 Lopressor PO 25 mg BID RONI Administration Nicotine 21 mg 08/04/19 20:00 08/04/19 20:07 Nicoderm Patch TD 21 mg 2000 RONI Administration Sodium Chloride 10 ml 08/04/19 21:00 08/05/19 08:55 Flush - Normal Saline IVF 10 ml Q12HR RONI Administration Tamsulosin HCl 0.4 mg 08/04/19 21:00 08/04/19 20:07 Flomax PO 0.4 mg HS RONI Administration Tramadol HCl 100 mg 08/04/19 10:15 08/05/19 08:58 Ultram PO 100 mg Q4H PRN Administration Moderate to Severe Pain (6-10) - Exam General Appearance: NAD, awake alert Eye: PERRL ENT: normocephalic atraumatic, moist mucosa Neck: supple, symmetric, no lymphadenopathy Heart: no murmur, no gallops, no rubs Respiratory: CTAB, no wheezes, no rales, no ronchi, normal chest expansion Gastrointestinal: soft, non-tender, no guarding, no rigidity Extremities: 2+ LE edema Skin - other findings: LE skin wounds - see wound care pictures for details Neurological: cranial nerve grossly intact, no focal deficits Musculoskeletal: generalized weakness Psychiatric: A&O x 3 Hosp A/P (1) Decubitus skin ulcer Code(s): L89.90 - PRESSURE ULCER OF UNSPECIFIED SITE, UNSPECIFIED STAGE Status : Acute (2) Sepsis Code(s): A41.9 - SEPSIS, UNSPECIFIED ORGANISM Status: Acute (3) Ataxia Code(s): R27.0 - ATAXIA, UNSPECIFIED Status: Acute (4) Tobacco abuse Code(s): Z72.0 - TOBACCO USE Status: Acute (5) Alcoholism Code(s): F10.20 - ALCOHOL DEPENDENCE, UNCOMPLICATED Status: Acute (6) CHF (congestive heart failure) Code(s): I50.9 - HEART FAILURE, UNSPECIFIED Status: Acute (7) Foot ulcer due to secondary DM Code(s): E13.621 - OTHER SPECIFIED DIABETES MELLITUS WITH FOOT ULCER; L97.509 - NON-PRESSURE CHRONIC ULCER OTH PRT UNSP FOOT W UNSP SEVERITY Status: Acute (8) HLD (hyperlipidemia) Code(s): E78.5 - HYPERLIPIDEMIA, UNSPECIFIED Status: Chronic (9) HTN (hypertension) Code(s): I10 - ESSENTIAL (PRIMARY) HYPERTENSION Status: Chronic (10) Insulin dependent diabetes mellitus Code(s): E11.9 - TYPE 2 DIABETES MELLITUS WITHOUT COMPLICATIONS; Z79.4 - RETIREMENT (CURRENT) USE OF INSULIN Status: Chronic (11) Protein-calorie malnutrition, moderate Code(s): E44.0 - MODERATE PROTEIN-CALORIE MALNUTRITION Status: Acute - Plan Plan: medical unit palliative care consultation for goals of care, recommendations appreciated general surgery was consulted however the patient adamantly refused to talk to any surgeons and refused to have any surgical procedures done on his legs or any other part of his body broad-spectrum IV antibiotics wound cultures de-escalate to culture and sensitivity as able MRI LE to R/o Osteomyelitis consider infectious disease consult pending culture and sensitivity acute kidney injury present on admission, improved with IV fluids moderate protein calorie malnutrition present on admission extensive tobacco abuse history, nicotine patch history of alcohol abuse, states he has quit ataxia, has not walked in 6-8 weeks PT/ OT Eval and treat Will likely require sub acute placement long and short acting insulin for glucose control blood pressure control G.I. prophylaxis DVT prophylaxis, full dose eliquis home medication continued
[2019-08-05] MEDS: Nicotine 21 MG PATCH TD SCH (20:04)
[2019-08-05] MEDS: Tamsulosin HCl 0.4 MG CAP PO SCH (20:07)
[2019-08-05 21:18] LABS: Vancomycin, Trough 13.1 ug/mL
[2019-08-05] MEDS: Vancomycin 1 GM in Premix Bag 1 BAG IVPB SCH (22:48)
[2019-08-05] MEDS: diphenhydrAMINE 25 MG CAP PO PRN (23:09)
[2019-08-05] MEDS: Guaifenesin DM 100-10/5 ML UDCUP PO PRN (23:11)
[2019-08-06] MEDS: Piperacillin/Tazobactam 2.25 GM in Sodium Chloride 0.9% 100 ML IVPB SCH ×3 (04:16→19:59)
[2019-08-06] MEDS: Furosemide 40 MG/4 ML VIAL SLOW IVP SCH ×2 (05:20→13:12)
[2019-08-06] MEDS: Apixaban 5 MG TAB PO SCH (08:40)
[2019-08-06] MEDS: Famotidine 20 MG TAB PO SCH ×2 (08:40→19:58)
[2019-08-06] MEDS: Amlodipine 5 MG TAB PO SCH (08:41)
[2019-08-06] MEDS: Digoxin 0.125 MG TAB PO SCH (08:41)
[2019-08-06] MEDS: Metoprolol Tartrate 25 MG TAB PO SCH ×2 (08:42→19:58)
[2019-08-06] MEDS: traMADol HCl 50 MG TAB PO PRN ×2 (08:44→19:57)
[2019-08-06] MEDS: Insulin Glargine 20 UNITS in Pre-Filled Syringe 1 EACH SC SCH ×2 (08:50→21:06)
[2019-08-06] MEDS ORDERED: Morphine 4 MG/ML VIAL SLOW IVP PRN (11:18)
--- NOTE | 2019-08-06 12:23 | PDOC.HOSPP ---
- Subjective Subjective: Patient stating he cannot do MRI secondary to uncontrolled pain, offered one- time dose of IV morphine and he states that he will not do MRI today but will refuse it. He states that he may do MRI tomorrow. Wound care has evaluated patient and recommended surgery consult, I have told this to the patient daily, he states that he will adamantly refuse any surgery. Because the patient has been noncompliant we will ask surgery to evaluate the patient to see if anything can be done. Will consult infectious disease specialist as the patient will likely require an extended course of IV antibiotics if he will not undergo surgical procedure. MRI will be able to delineate skin and soft tissue versus osteomyelitis, this will determine the length of antibiotics required. - Objective Vital Signs & Weight: Vital Signs (12 hours) Temp Pulse Resp BP Pulse Ox 08/06/19 11:12 98.2 F 90 18 136/76 96 08/06/19 08:41 97 08/06/19 08:00 97 08/06/19 07:45 98.5 F 97 18 137/80 97 08/06/19 06:39 81 14 93 L Weight Admit Weight 173 lb 2.992 oz Weight 173 lb 2.992 oz I&O: 08/05/19 08/06/19 08/07/19 06:59 06:59 06:59 Intake Total 910 1160 Output Total 200 400 Balance 710 760 Result Diagrams: 08/05/19 09:32 08/05/19 09:32 Additional Labs: Accuchecks 08/06/19 08/06/19 08/05/19 11:15 03:58 21:00 POC Glucose 207 H 196 H 146 H 08/05/19 16:26 POC Glucose 170 H Radiology Reviewed by me: Yes Hospitalist ROS - Review of Systems All other systems reviewed; all pertinent +/- noted in HPI/Subj - Medication Medications: Active Medications Generic Name Dose Route Start Last Admin Trade Name Freq PRN Reason Stop Dose Admin Acetaminophen 650 mg 08/04/19 05:17 08/05/19 20:07 Tylenol PO 650 mg Q4H PRN Administration Headache/Fever or Pain Amlodipine Besylate 5 mg 08/05/19 09:00 08/06/19 08:41 Norvasc PO 5 mg DAILY RONI Administration Apixaban 5 mg 08/04/19 21:00 08/06/19 08:40 Eliquis PO 5 mg BID RONI Administration Clonidine 0.2 mg 08/04/19 14:00 08/04/19 15:00 Fehqobeg-Cbt-4 TD 0.2 mg Q7D RONI Administration Digoxin 0.125 mg 08/04/19 09:00 08/06/19 08:41 Lanoxin PO 0.125 mg DAILY RONI Administration Diphenhydramine HCl 25 mg 08/04/19 05:18 08/05/19 23:09 Benadryl PO 25 mg Q4H PRN Administration Itching Famotidine 40 mg 08/04/19 21:00 08/06/19 08:40 Pepcid PO 40 mg BID RONI Administration Furosemide 40 mg 08/04/19 06:00 08/06/19 05:20 Lasix SLOW IVP 40 mg 0600,1400 RONI Administration Guaifenesin/Dextromethorphan 15 ml 08/04/19 05:16 08/05/19 23:11 Robitussin Dm PO 15 ml Q4H PRN Administration Cough Insulin Glargine 20 units/ 0.2 mls @ 0 mls/hr 08/04/19 09:00 08/06/19 08:50 Miscellaneous Medication SC 0.2 mls BID RONI Administration Vancomycin HCl 1 gm/ Device 200 mls @ 200 mls/hr 08/04/19 22:00 08/05/19 22: 48 IVPB 200 mls Q24HR@2200 RONI Administration Piperacillin Sod/Tazobactam 100 mls @ 200 mls/hr 08/04/19 05:00 08/06/19 04: 16 Sod 2.25 gm/ Sodium Chloride IVPB 100 mls 0500,1300,2100 RONI Administration Insulin Human Lispro 0 units 08/04/19 12:33 08/05/19 13:00 Humalog SC 8 unit .MODERATE SLIDING SC PRN Administration Moderate Correctional Scale Metoprolol Tartrate 25 mg 08/04/19 09:00 08/06/19 08:42 Lopressor PO 25 mg BID RONI Administration Nicotine 21 mg 08/04/19 20:00 08/05/19 20:04 Nicoderm Patch TD 21 mg 2000 RONI Administration Sodium Chloride 10 ml 08/04/19 21:00 08/06/19 08:44 Flush - Normal Saline IVF 10 ml Q12HR RONI Administration Tamsulosin HCl 0.4 mg 08/04/19 21:00 08/05/19 20:07 Flomax PO 0.4 mg HS RONI Administration Tramadol HCl 50 mg 08/04/19 10:14 08/06/19 08:44 Ultram PO 50 mg Q4H PRN Administration Moderate Pain (4-6) Tramadol HCl 100 mg 08/04/19 10:15 08/05/19 08:58 Ultram PO 100 mg Q4H PRN Administration Moderate to Severe Pain (6-10) - Exam General Appearance: NAD, awake alert Eye: anicteric sclera ENT: normocephalic atraumatic, moist mucosa Neck: symmetric, no JVD, no thyromegaly, no lymphadenopathy, no carotid bruit Heart: no murmur, no gallops, no rubs, normal peripheral pulses Respiratory: CTAB, no wheezes, no rales, no ronchi, normal chest expansion, no tachypnea Gastrointestinal: soft, non-tender, no guarding, no rigidity Extremities: 2+ LE edema Skin: no rashes Skin - other findings: Acute worsening of chronic LE and decub wounds - see wound care pictures Neurological: cranial nerve grossly intact, no focal deficits Musculoskeletal: generalized weakness Psychiatric: A&O x 3 Hosp A/P (1) Decubitus skin ulcer Code(s): L89.90 - PRESSURE ULCER OF UNSPECIFIED SITE, UNSPECIFIED STAGE Status : Acute (2) Sepsis Code(s): A41.9 - SEPSIS, UNSPECIFIED ORGANISM Status: Acute (3) Ataxia Code(s): R27.0 - ATAXIA, UNSPECIFIED Status: Acute (4) Tobacco abuse Code(s): Z72.0 - TOBACCO USE Status: Acute (5) Alcoholism Code(s): F10.20 - ALCOHOL DEPENDENCE, UNCOMPLICATED Status: Acute (6) CHF (congestive heart failure) Code(s): I50.9 - HEART FAILURE, UNSPECIFIED Status: Acute (7) Foot ulcer due to secondary DM Code(s): E13.621 - OTHER SPECIFIED DIABETES MELLITUS WITH FOOT ULCER; L97.509 - NON-PRESSURE CHRONIC ULCER OTH PRT UNSP FOOT W UNSP SEVERITY Status: Acute (8) HLD (hyperlipidemia) Code(s): E78.5 - HYPERLIPIDEMIA, UNSPECIFIED Status: Chronic (9) HTN (hypertension) Code(s): I10 - ESSENTIAL (PRIMARY) HYPERTENSION Status: Chronic (10) Insulin dependent diabetes mellitus Code(s): E11.9 - TYPE 2 DIABETES MELLITUS WITHOUT COMPLICATIONS; Z79.4 - CHCF (CURRENT) USE OF INSULIN Status: Chronic (11) Protein-calorie malnutrition, moderate Code(s): E44.0 - MODERATE PROTEIN-CALORIE MALNUTRITION Status: Acute - Plan Plan: medical unit palliative care consultation for goals of care, recommendations appreciated general surgery consultation, recommendations appreciated Infectious disease consultation, recommendations appreciated broad-spectrum IV antibiotics wound cultures de-escalate to culture and sensitivity as able MRI LE to R/o Osteomyelitis acute kidney injury present on admission, improved with IV fluids moderate protein calorie malnutrition present on admission extensive tobacco abuse history, nicotine patch history of alcohol abuse, states he has quit ataxia, has not walked in 6-8 weeks PT/ OT Eval and treat Will likely require sub acute placement long and short acting insulin for glucose control blood pressure control G.I. prophylaxis DVT prophylaxis, full dose eliquis home medication continued
[2019-08-06] MEDS: HumaLOG 300 UNITS/3 ML VIAL SC PRN (12:39)
--- NOTE | 2019-08-06 17:41 | CON ---
DATE OF CONSULTATION: HISTORY OF PRESENT ILLNESS: Mr. Green is a 59-year-old male patient who has been admitted to the medical service from the emergency room on 08/03/2019. He has been very uncooperative during this hospitalization. He reports smoking 3 to 4 packs of cigarettes a day, drinking alcohol occasionally. He has allowed a lower extremity ultrasound on 08/04/2019, noting diffuse arteriosclerotic vascular disease. On exam, he has a weakly palpable left femoral pulse, nonpalpable distal pulses. He has a left heel problem with gangrene. He is not allowed caregivers to obtain an MRI. He states he has had previous debridement of his left heel down the bone in the past. He is not able to give a reliable history. ALLERGIES: HYDROCODONE AND METFORMIN. HABITS: Tobacco abuse, as noted above. Alcohol use, as noted above. MEDICATIONS: 1. Aspirin 81 mg a day. 2. Digoxin 0.125 mg daily. 3. Eliquis, stopped taking because he could not get a refill. 4. Lasix 40 mg in the morning, 2 pills, 1 at noon and 1 in the evening. 5. Norvasc 5 mg a day. 6. Tresiba 50 units. 7. NovoLog 3 times a day, sliding scale. SOCIAL HISTORY: The patient lives with his girlfriend and her son. PAST MEDICAL HISTORY: 1. Diabetes mellitus, type 2. 2. Dyslipidemia. 3. History of [place], refusing stress test, followed by Dr. Jackman at [facility]. 4. History of chronic atrial fibrillation. 5. Congestive heart failure. 6. Umbilical hernia repair in the past. 7. Right knee surgery. 8. Tonsillectomy. 9. Chronic wounds, legs. 10. Nonambulatory by record, although he tells me he walks occasionally. I have to repeatedly awaken him during the interview. Nurses report that he has not had any narcotics. REVIEW OF SYSTEMS: Not reliable, although denies having any chest pain or pressure. FAMILY HISTORY: The patient will not communicate. PHYSICAL EXAMINATION: VITAL SIGNS: Height 5 feet 8 inches, 173 pounds, 26 BMI, temperature 98.2 degrees, heart rte 90, and blood pressure 136/76. LUNGS: Clear to auscultation. No wheezing. CARDIAC: Regular rate and rhythm. ABDOMEN: Soft and nontender. EXTREMITIES: Palpable femoral pulse in groins. Nonpalpable left popliteal or pedal pulses. He has a foul smelling process in the left heel with gangrene. There is discoloration in a large area, approximately 6 or 8 cm in diameter. DIAGNOSTIC STUDIES: Echocardiogram; ejection fraction 40% to 45%, LV normal size, mild tricuspid and mitral regurgitation. Kiron is akinetic. LABORATORY DATA: White count 16,000 today, 19,000 two days ago and hemoglobin 11. Glucose is 117 to 123. CURRENT MEDICATIONS: The patient is on: 1. Eliquis. 2. Flomax. 3. Vancomycin. 4. Zosyn. 5. Metoprolol. 6. Insulin. ASSESSMENT AND PLAN: 1. Gangrene, left heel, probably secondary decubitus. He reports having had previous debridement to the calcaneus before. He is nonambulatory according to records. This is extremely tender and cannot be debrided at the bedside by appearance, it looks as though he probably has gangrenous process down to the calcaneus. I have told him most likely he will need a left below-knee amputation. He has severe peripheral arterial disease, which would hinder any healing efforts. He has ongoing tobacco abuse. I would discontinue his Eliquis immediately to allow surgical intervention in the next 2 days. The patient states he would like to think about things. I did tell him I would make him n.p.o., but intervene tomorrow, but given that he is on Eliquis, we will have to postpone this until early as Wednesday. 2. Chronic anticoagulation. 3. Congestive heart failure. Echocardiogram as noted above with akinetic apex and history of refusal of intervention. 4. Ongoing, voluminous tobacco abuse. 5. Diabetes mellitus. Job ID: [id number]
--- NOTE | 2019-08-06 17:53 | RAD ---
EXAM: 3 views of the left foot HISTORY: Heel wound with possible osteomyelitis. COMPARISON: None FINDINGS: 3 views of the left foot shows no evidence of acute fracture or dislocation. Air is seen wi thin the heel. No underlying osseous erosions are seen. No degenerative changes are present. IMPRESSION: Heel wound without underlying calcaneal erosions.
[2019-08-06] MEDS: Acetaminophen 325 MG TAB PO PRN (19:57)
[2019-08-06] MEDS: Tamsulosin HCl 0.4 MG CAP PO SCH (19:58)
[2019-08-06] MEDS: Nicotine 21 MG PATCH TD SCH (19:58)
[2019-08-06] MEDS: Vancomycin 1 GM in Premix Bag 1 BAG IVPB SCH (21:06)
[2019-08-07] MEDS: diphenhydrAMINE 25 MG CAP PO PRN ×3 (02:31→20:19)
[2019-08-07] MEDS: Furosemide 40 MG/4 ML VIAL SLOW IVP SCH ×2 (05:20→12:58)
[2019-08-07] MEDS: Piperacillin/Tazobactam 2.25 GM in Sodium Chloride 0.9% 100 ML IVPB SCH ×3 (05:20→20:19)
[2019-08-07 05:34] LABS: Band 1 % (5-11); Hemoglobin 10.5 g/dL (14.0-18.0); Lymphocytes 6 % (21-51); MDiff Complete? YES; Mean Corpuscular HGB CONC 32.6 g/dL (32.0-36.0); Mean Corpuscular Hemoglobin 29.2 pg (27.0-31.0); Mean Corpuscular Volume 89.6 fL (78.0-98.0); Mean Platelet Volume 8.7 fL (7.4-10.4); Monocytes 5 % (0-10); Neutrophil 88 % (42-75); Platelet Count 301 thou/uL (130-400); Platelet Morphology Comment Appears Adequate; RBC Distribution Width 12.8 % (11.5-14.5); Red Blood Cell (RBC) Count 3.58 mill/uL (4.70-6.10); White Blood Cell (WBC) Count 15.8 thou/uL (4.8-10.8)
[2019-08-07 05:41] LABS: Anion Gap 13 mmol/L (10-20); BUN (Urea Nitrogen) 27 mg/dL (8.4-25.7); Calc. Creatinine Clearance 45 mL/min (70-130); Calcium 7.8 mg/dL (7.8-10.44); Carbon Dioxide 25 mmol/L (22-29); Chloride 98 mmol/L (98-107); Estimated GFR-MDRD 35; Glucose 224 mg/dL (70-105); Potassium 3.6 mmol/L (3.5-5.1); Sodium 132 mmol/L (136-145)
[2019-08-07] MEDS: Digoxin 0.125 MG TAB PO SCH (08:21)
[2019-08-07] MEDS: Metoprolol Tartrate 25 MG TAB PO SCH ×2 (08:21→20:12)
[2019-08-07] MEDS: Famotidine 20 MG TAB PO SCH ×2 (08:21→20:12)
[2019-08-07] MEDS: Amlodipine 5 MG TAB PO SCH (08:22)
[2019-08-07] MEDS: Insulin Glargine 20 UNITS in Pre-Filled Syringe 1 EACH SC SCH ×2 (08:22→20:31)
--- NOTE | 2019-08-07 09:37 | PDOC.HOSPP ---
- Subjective Encounter Date: 08/07/19 Encounter Time: 11:10 Subjective: Patient with pain well controlled now. No fever/chills. No N/V. No SOB. Has chronic smoker's cough. - Objective Vital Signs & Weight: Vital Signs (12 hours) Temp Pulse Resp BP Pulse Ox 08/07/19 08:22 81 08/07/19 08:21 81 08/07/19 07:22 97.7 F 81 18 138/80 93 L 08/07/19 04:00 98.5 F 88 18 142/72 H Weight Admit Weight 173 lb 2.992 oz Weight 173 lb 2.992 oz I&O: 08/06/19 08/07/19 08/08/19 06:59 06:59 06:59 Intake Total 1160 Output Total 400 Balance 760 Result Diagrams: 08/07/19 05:02 08/07/19 05:02 Additional Labs: Accuchecks 08/07/19 08/06/19 08/06/19 05:46 19:32 16:25 POC Glucose 223 H 142 H 117 H 08/06/19 11:15 POC Glucose 207 H Hospitalist ROS - Review of Systems Constitutional: denies: fever, chills Respiratory: reports: cough. denies: shortness of breath Cardiovascular: denies: chest pain, palpitations Gastrointestinal: denies: nausea, vomiting, abdominal pain Musculoskeletal: reports: foot pain - Medication Medications: Active Medications Generic Name Dose Route Start Last Admin Trade Name Freq PRN Reason Stop Dose Admin Acetaminophen 650 mg 08/04/19 05:17 08/06/19 19:57 Tylenol PO 650 mg Q4H PRN Administration Headache/Fever or Pain Amlodipine Besylate 5 mg 08/05/19 09:00 08/07/19 08:22 Norvasc PO 5 mg DAILY RONI Administration Clonidine 0.2 mg 08/04/19 14:00 08/04/19 15:00 Xkggnkrh-Gcl-4 TD 0.2 mg Q7D RONI Administration Digoxin 0.125 mg 08/04/19 09:00 08/07/19 08:21 Lanoxin PO 0.125 mg DAILY RONI Administration Diphenhydramine HCl 25 mg 08/04/19 05:18 08/07/19 02:31 Benadryl PO 25 mg Q4H PRN Administration Itching Famotidine 40 mg 08/04/19 21:00 08/07/19 08:21 Pepcid PO 40 mg BID RONI Administration Furosemide 40 mg 08/04/19 06:00 08/07/19 05:20 Lasix SLOW IVP 40 mg 0600,1400 RONI Administration Guaifenesin/Dextromethorphan 15 ml 08/04/19 05:16 08/05/19 23:11 Robitussin Dm PO 15 ml Q4H PRN Administration Cough Insulin Glargine 20 units/ 0.2 mls @ 0 mls/hr 08/04/19 09:00 08/07/19 08:22 Miscellaneous Medication SC 0.2 mls BID RONI Administration Vancomycin HCl 1 gm/ Device 200 mls @ 200 mls/hr 08/04/19 22:00 08/06/19 21: 06 IVPB 200 mls Q24HR@2200 RONI Administration Piperacillin Sod/Tazobactam 100 mls @ 200 mls/hr 08/04/19 05:00 08/07/19 05: 20 Sod 2.25 gm/ Sodium Chloride IVPB 100 mls 0500,1300,2100 RONI Administration Insulin Human Lispro 0 units 08/04/19 12:33 08/06/19 12:39 Humalog SC 4 unit .MODERATE SLIDING SC PRN Administration Moderate Correctional Scale Metoprolol Tartrate 25 mg 08/04/19 09:00 08/07/19 08:21 Lopressor PO 25 mg BID RONI Administration Nicotine 21 mg 08/04/19 20:00 08/06/19 19:58 Nicoderm Patch TD 21 mg 2000 RONI Administration Sodium Chloride 10 ml 08/04/19 21:00 08/07/19 08:21 Flush - Normal Saline IVF 10 ml Q12HR RONI Administration Tamsulosin HCl 0.4 mg 08/04/19 21:00 08/06/19 19:58 Flomax PO 0.4 mg HS RONI Administration Tramadol HCl 50 mg 08/04/19 10:14 08/06/19 19:57 Ultram PO 50 mg Q4H PRN Administration Moderate Pain (4-6) Tramadol HCl 100 mg 08/04/19 10:15 08/05/19 08:58 Ultram PO 100 mg Q4H PRN Administration Moderate to Severe Pain (6-10) - Exam General Appearance: NAD, awake alert ENT: moist mucosa Heart: RRR, no murmur, no gallops, no rubs Respiratory: CTAB, no wheezes, no rales, no ronchi Gastrointestinal: soft, non-tender, non-distended, normal bowel sounds Extremities - other findings: dressing to right heal C/D/I Psychiatric: normal behavior, A&O x 3 Psychiatric - other findings: somewhat odd affect Hosp A/P (1) Foot ulcer due to secondary DM Code(s): E13.621 - OTHER SPECIFIED DIABETES MELLITUS WITH FOOT ULCER; L97.509 - NON-PRESSURE CHRONIC ULCER OTH PRT UNSP FOOT W UNSP SEVERITY Status: Acute Plan: with gangrene (2) Sepsis Code(s): A41.9 - SEPSIS, UNSPECIFIED ORGANISM Status: Acute Plan: leukocytosis and tachycardia on admission (3) Peripheral vascular disease Code(s): I73.9 - PERIPHERAL VASCULAR DISEASE, UNSPECIFIED Status: Acute (4) Chronic anticoagulation Code(s): Z79.01 - PRISON (CURRENT) USE OF ANTICOAGULANTS Status: Acute (5) CHF (congestive heart failure) Code(s): I50.9 - HEART FAILURE, UNSPECIFIED Status: Chronic (6) HLD (hyperlipidemia) Code(s): E78.5 - HYPERLIPIDEMIA, UNSPECIFIED Status: Chronic (7) HTN (hypertension) Code(s): I10 - ESSENTIAL (PRIMARY) HYPERTENSION Status: Chronic (8) Insulin dependent diabetes mellitus Code(s): E11.9 - TYPE 2 DIABETES MELLITUS WITHOUT COMPLICATIONS; Z79.4 - PRISON (CURRENT) USE OF INSULIN Status: Chronic (9) Alcoholism Code(s): F10.20 - ALCOHOL DEPENDENCE, UNCOMPLICATED Status: Chronic (10) Tobacco abuse Code(s): Z72.0 - TOBACCO USE Status: Chronic (11) Protein-calorie malnutrition, moderate Code(s): E44.0 - MODERATE PROTEIN-CALORIE MALNUTRITION Status: Acute - Plan Patient adamantly refusing surgery. Dr. Myers to discuss with him further. Pain well controlled this AM and he is more agreeable to trying an MRI so I will order that. On Vanc and Zosyn since 08/03/2019
[2019-08-07] MEDS: traMADol HCl 50 MG TAB PO PRN ×2 (10:32→20:11)
[2019-08-07] MEDS: HumaLOG 300 UNITS/3 ML VIAL SC PRN ×2 (12:58→17:55)
[2019-08-07] MEDS ORDERED: Morphine 4 MG/ML VIAL SLOW IVP PRN (13:51)
--- NOTE | 2019-08-07 16:22 | PRG ---
DATE OF SERVICE: 08/07/2019 SUBJECTIVE: Raúl Green is doing well today. He has refused to sign consents or consider surgery. I was not plan any thing today anyway since he has been on Eliquis and needs 48 hours off that. The patient refuses leg amputation, and I told him that I was planning tomorrow debridement of his heel, and I have told him previously that his problem is so severe, he may need an amputation in the future, but at this time, we will limit any surgery to debridement of gangrenous tissue. Left heel is foul smelling. A plain x-ray did not show osteomyelitis. He has refused MRI. Temperature 98.2 degrees, pulse 75, and blood pressure 149/78. His dressing was not removed again today, foot is very foul smelling, gangrenous odor. ASSESSMENT AND PLAN: Gangrene, left heel with decubitus. We would recommend debridement. He understands risks and benefits, consents. We will plan that tomorrow. Job ID: [id number]
[2019-08-07] MEDS: Tamsulosin HCl 0.4 MG CAP PO SCH (20:12)
[2019-08-07] MEDS: Nicotine 21 MG PATCH TD SCH (20:13)
[2019-08-07] MEDS: Vancomycin 1 GM in Premix Bag 1 BAG IVPB SCH ×2 (21:30→22:14)
[2019-08-07 21:59] LABS: Vancomycin, Trough 16.9 ug/mL
[2019-08-08] MEDS: Piperacillin/Tazobactam 2.25 GM in Sodium Chloride 0.9% 100 ML IVPB SCH ×3 (05:05→20:25)
[2019-08-08] MEDS: Furosemide 40 MG/4 ML VIAL SLOW IVP SCH ×2 (05:05→14:08)
[2019-08-08] MEDS: Metoprolol Tartrate 25 MG TAB PO SCH ×2 (05:33→20:24)
[2019-08-08] MEDS: diphenhydrAMINE 25 MG CAP PO PRN (05:36)
[2019-08-08] MEDS: traMADol HCl 50 MG TAB PO PRN (05:36)
[2019-08-08] MEDS ORDERED: Sodium Chloride 0.9% 1,000 ML IV SCH (08:00)
[2019-08-08] MEDS: Digoxin 0.125 MG TAB PO SCH (08:28)
[2019-08-08] MEDS: Amlodipine 5 MG TAB PO SCH (08:28)
[2019-08-08] MEDS: Famotidine 20 MG TAB PO SCH ×2 (08:29→20:24)
[2019-08-08] MEDS ORDERED: Lidocaine 1% PF 5 ML VIAL ONE (09:17)
[2019-08-08] MEDS ORDERED: PROPOFOL 200 MG/20 ML VIAL ONE (09:17)
[2019-08-08] MEDS ORDERED: EPHEDRINE 25 MG/5 ML SYRINGE ONE (09:17)
[2019-08-08] MEDS ORDERED: PHENYLEPHRINE-NS 100 MCG/ML 10 ML SYRINGE ONE (09:17)
--- NOTE | 2019-08-08 10:23 | PDOC.HOSPP ---
- Subjective Encounter Date: 08/08/19 Encounter Time: 13:30 Subjective: Patient back from surgical debridement of wound today. No complaints. Still adamantly refusing amputation. - Objective Vital Signs & Weight: Vital Signs (12 hours) Temp Pulse Resp BP Pulse Ox 08/08/19 08:28 83 08/08/19 07:21 99.3 F 83 18 117/71 92 L 08/08/19 05:32 87 18 150/77 H Weight Admit Weight 173 lb 2.992 oz Weight 173 lb 2.992 oz I&O: 08/07/19 08/08/19 08/09/19 06:59 06:59 06:59 Intake Total 1140 Output Total 100 Balance 1040 Result Diagrams: 08/07/19 05:02 08/07/19 05:02 Additional Labs: Accuchecks 08/08/19 08/08/19 08/07/19 05:04 00:20 21:06 POC Glucose 218 H 158 H 76 08/07/19 08/07/19 08/07/19 20:40 20:26 16:10 POC Glucose 51 L* 47 L* 341 H 08/07/19 11:15 POC Glucose 206 H Hospitalist ROS - Review of Systems Constitutional: denies: fever, chills Respiratory: denies: cough, shortness of breath Cardiovascular: denies: chest pain, palpitations Gastrointestinal: denies: nausea, vomiting, abdominal pain - Medication Medications: Active Medications Generic Name Dose Route Start Last Admin Trade Name Freq PRN Reason Stop Dose Admin Acetaminophen 650 mg 08/04/19 05:17 08/06/19 19:57 Tylenol PO 650 mg Q4H PRN Administration Headache/Fever or Pain Amlodipine Besylate 5 mg 08/05/19 09:00 08/08/19 08:28 Norvasc PO Not Given DAILY RONI Clonidine 0.2 mg 08/04/19 14:00 08/04/19 15:00 Stbhszto-Nid-7 TD 0.2 mg Q7D RONI Administration Digoxin 0.125 mg 08/04/19 09:00 08/08/19 08:28 Lanoxin PO Not Given DAILY RONI Diphenhydramine HCl 25 mg 08/04/19 05:18 08/08/19 05:36 Benadryl PO 25 mg Q4H PRN Administration Itching Famotidine 40 mg 08/04/19 21:00 08/08/19 08:29 Pepcid PO Not Given BID RONI Furosemide 40 mg 08/04/19 06:00 08/08/19 05:05 Lasix SLOW IVP 40 mg 0600,1400 RONI Administration Guaifenesin/Dextromethorphan 15 ml 08/04/19 05:16 08/05/19 23:11 Robitussin Dm PO 15 ml Q4H PRN Administration Cough Vancomycin HCl 1 gm/ Device 200 mls @ 200 mls/hr 08/04/19 22:00 08/07/19 22: 14 IVPB 200 mls Q24HR@2200 RONI Administration Piperacillin Sod/Tazobactam 100 mls @ 200 mls/hr 08/04/19 05:00 08/08/19 05: 05 Sod 2.25 gm/ Sodium Chloride IVPB 100 mls 0500,1300,2100 RONI Administration Sodium Chloride 1,000 mls @ 100 mls/hr 08/08/19 08:00 08/08/19 08:28 Normal Saline 0.9% IV Not Given .Q10H [facility] Insulin Human Lispro 0 units 08/04/19 12:33 08/07/19 17:55 Humalog SC 8 unit .MODERATE SLIDING SC PRN Administration Moderate Correctional Scale Metoprolol Tartrate 25 mg 08/04/19 09:00 08/08/19 05:33 Lopressor PO 25 mg BID [facility] Administration Nicotine 21 mg 08/04/19 20:00 08/07/19 20:13 Nicoderm Patch TD 21 mg 2000 RONI Administration Sodium Chloride 10 ml 08/04/19 21:00 08/08/19 08:29 Flush - Normal Saline IVF 10 ml Q12HR RONI Administration Tamsulosin HCl 0.4 mg 08/04/19 21:00 08/07/19 20:12 Flomax PO 0.4 mg HS RONI Administration Tramadol HCl 50 mg 08/04/19 10:14 08/07/19 10:32 Ultram PO 50 mg Q4H PRN Administration Moderate Pain (4-6) Tramadol HCl 100 mg 08/04/19 10:15 08/08/19 05:36 Ultram PO 100 mg Q4H PRN Administration Moderate to Severe Pain (6-10) - Exam General Appearance: NAD, awake alert ENT: moist mucosa Heart: RRR, no murmur, no gallops, no rubs Respiratory: CTAB, no wheezes, no rales, no ronchi Gastrointestinal: soft, non-tender, non-distended, normal bowel sounds Extremities - other findings: post op dressing to right foot/ankle/heel, C/D/I Psychiatric: normal affect, normal behavior, A&O x 3 Hosp A/P (1) Foot ulcer due to secondary DM Code(s): E13.621 - OTHER SPECIFIED DIABETES MELLITUS WITH FOOT ULCER; L97.509 - NON-PRESSURE CHRONIC ULCER OTH PRT UNSP FOOT W UNSP SEVERITY Status: Acute (2) Sepsis Code(s): A41.9 - SEPSIS, UNSPECIFIED ORGANISM Status: Acute (3) Peripheral vascular disease Code(s): I73.9 - PERIPHERAL VASCULAR DISEASE, UNSPECIFIED Status: Acute (4) Chronic anticoagulation Code(s): Z79.01 - CORRECTION (CURRENT) USE OF ANTICOAGULANTS Status: Acute (5) CHF (congestive heart failure) Code(s): I50.9 - HEART FAILURE, UNSPECIFIED Status: Chronic (6) HLD (hyperlipidemia) Code(s): E78.5 - HYPERLIPIDEMIA, UNSPECIFIED Status: Chronic (7) HTN (hypertension) Code(s): I10 - ESSENTIAL (PRIMARY) HYPERTENSION Status: Chronic (8) Insulin dependent diabetes mellitus Code(s): E11.9 - TYPE 2 DIABETES MELLITUS WITHOUT COMPLICATIONS; Z79.4 - CORRECTION (CURRENT) USE OF INSULIN Status: Chronic (9) Alcoholism Code(s): F10.20 - ALCOHOL DEPENDENCE, UNCOMPLICATED Status: Chronic (10) Tobacco abuse Code(s): Z72.0 - TOBACCO USE Status: Chronic (11) Protein-calorie malnutrition, moderate Code(s): E44.0 - MODERATE PROTEIN-CALORIE MALNUTRITION Status: Acute (12) Hypoglycemia Code(s): E16.2 - HYPOGLYCEMIA, UNSPECIFIED Status: Acute - Plan Patient adamantly refusing surgery. Dr. Myers Debrided wound this AM. Found necrotic material tracking proximally and into foot. On Vanc and Zosyn since 08/03/2019 Hypoglycemic yesterday, Lantus 20 BID d/c'd Now high blood sugar, will restart at 10 units BID. I stressed to patient the need to amputate otherwise he risks further spread of infection and even .
[2019-08-08] MEDS ORDERED: Fentanyl 100 MCG/2 ML VIAL ONE (10:34)
[2019-08-08] MEDS ORDERED: traMADol HCl 50 MG TAB PO PRN ×2 (12:07)
[2019-08-08] MEDS ORDERED: Acetaminophen 500 MG TAB PO PRN (12:07)
[2019-08-08] MEDS ORDERED: Promethazine HCl 25 MG/ML VIAL IM PRN (12:24)
[2019-08-08] MEDS ORDERED: Ondansetron HCl/PF 4 MG/2 ML Vial IVP PRN (12:24)
[2019-08-08] MEDS ORDERED: Promethazine HCl 25 MG/ML VIAL SLOW IVP PRN (12:24)
--- NOTE | 2019-08-08 12:24 | OP ---
DATE OF PROCEDURE: 08/08/2019 PREOPERATIVE DIAGNOSIS: Left heel severe decubitus stage IV involving the calcaneus. POSTOPERATIVE DIAGNOSIS: Left heel severe decubitus stage IV involving the calcaneus with extensive wound with extensive necrosis and gangrene. FINDINGS: A large wound 11 x 9 cm with tracking proximally, plantar another 6 cm purulent foul-smelling infection tracking in the plantar foot involved calcaneus and connective, muscle, and soft tissue. PROCEDURE PERFORMED: Extensive debridement of left calcaneus decubitus, debriding excisional resectional 10 blade sharp skin, subcutaneous tissue, connective tissue, muscle, and calcaneus. Multiple culture submitted. ANESTHESIA: General. Wound Care placed a wound VAC. The patient will need an amputation at some point, although he has refused today. DESCRIPTION OF PROCEDURE: The patient was taken to the operating room where under general anesthesia, left lower extremity was prepared with Betadine and draped in routine fashion. Extensive debridement of skin, subcutaneous tissue, muscle, fascia, resectional 10 blade, excisional and culture of multiple purulent areas. Excision of necrotic and infected subcutaneous tissue and opening of tracts extended medial, left ankle and plantar. Surgeon offered resection of the calcaneus cortex and connective tissue to allow wound VAC application. There was adequate bleeding at the margins. Wound Care Team placed a wound VAC after irrigating the wound. The patient will need amputation at some point, but he has refused today. Job ID: [id number]
[2019-08-08] MEDS: Gabapentin 300 MG CAP PO SCH ×2 (15:23→20:24)
[2019-08-08] MEDS: HumaLOG 300 UNITS/3 ML VIAL SC PRN (17:56)
[2019-08-08] MEDS: Nicotine 21 MG PATCH TD SCH (20:23)
[2019-08-08] MEDS: Tamsulosin HCl 0.4 MG CAP PO SCH (20:24)
[2019-08-08] MEDS ORDERED: Insulin Glargine 10 UNITS in Pre-Filled Syringe 1 EACH SC SCH (21:00)
[2019-08-08] MEDS: Vancomycin 1 GM in Premix Bag 1 BAG IVPB SCH (22:25)
[2019-08-08] MEDS: Guaifenesin DM 100-10/5 ML UDCUP PO PRN (22:32)
[2019-08-09] MEDS: Piperacillin/Tazobactam 2.25 GM in Sodium Chloride 0.9% 100 ML IVPB SCH ×3 (04:20→19:36)
[2019-08-09 05:13] LABS: Actual Bicarbonate (HCO3a) 31.4 mEq/L (22-28); Base Excess (BEa) -2.7 mEq/L (-2.0 to +3.0); Calcium, Ionized 1.09 mmol/L (1.12-1.30); Carboxyhemoglobin (COHb) 1.7 gm% (0.0-3.0); Hemoglobin (Hb) 10.8 g/dL (14.0-18.0); O2 Tension (PaO2) 71.1 mmHg (80.0-100.0); Potassium - ABG Lab 5.41 mmol/L (3.70-5.30)
[2019-08-09 05:21] LABS: Hemoglobin A1c 11.3 % (4.0-6.0)
[2019-08-09 05:23] LABS: CO2 Tension 136.2 mmHg (35.0-45.0); pH, Arterial 6.98 (7.35-7.45)
[2019-08-09 05:24] LABS: Puncture Site RRA
[2019-08-09] MEDS ORDERED: Ventilator Sedation Protocol 1 EACH FS ONE (05:32)
[2019-08-09] MEDS ORDERED: DISCONTINUE PREVIOUS NARCOTIC PAIN MEDICATIONS AND BENZODIAZEPINES FS SCH (05:33)
[2019-08-09] MEDS ORDERED: Morphine 2 MG/ML SYRINGE SLOW IVP PRN (05:33)
[2019-08-09] MEDS ORDERED: Lorazepam 2 MG/ML VIAL SLOW IVP PRN (05:33)
[2019-08-09] MEDS ORDERED: fentaNYL Citrate/PF 2,000 MCG in Sodium Chloride 0.9% 60 ML IV SCH (05:33)
[2019-08-09] MEDS ORDERED: Propofol BOLUS 1,000 MG/100 ML VIAL IV PRN (05:33)
[2019-08-09] MEDS ORDERED: Fentanyl BOLUS 250 ML IVPB PRN (05:33)
--- NOTE | 2019-08-09 05:36 | PDOC.EVN ---
Event Note - Event Note Event Note: Code blue called due to AMS. ABGs ph 6.9 with PCO2 >130. Intubated. Transferred to CCU
--- NOTE | 2019-08-09 05:37 | PDOC.EVN ---
Event Note - Event Note Event Note: Called code blue. Patient was found to be somnolent and in respiratory distress. At the time of arrival the patient had a pulse and was requiring bag mask ventilation. ABG was reviewed and the patient required intubation. Primary doctor was present. 1 successful attempt was made with a glidescope. Patient was transferred to the CCU. CXR performed showed proper placement of ET Tube. Rosita Mccullough PGY1 Scott Saenz PGY 3 Jean Valladares attending.
[2019-08-09 05:48] LABS: Hemoglobin 10.4 g/dL (14.0-18.0); Mean Corpuscular HGB CONC 30.5 g/dL (32.0-36.0); Mean Corpuscular Volume 95.1 fL (78.0-98.0); Mean Platelet Volume 9.3 fL (7.4-10.4); Platelet Count 406 thou/uL (130-400); RBC Distribution Width 13.2 % (11.5-14.5); Red Blood Cell (RBC) Count 3.57 mill/uL (4.70-6.10)
[2019-08-09 05:51] LABS: Eosinophils 1 % (0-10); Lymphocytes 2 % (21-51); MDiff Complete? YES; Metamyelocyte 1 % (0-0); Monocytes 4 % (0-10); Neutrophil 92 % (42-75); Platelet Morphology Comment Appears Increased
[2019-08-09 06:03] LABS: Troponin I 0.013 ng/mL (< 0.028)
[2019-08-09 06:04] LABS: Albumin 2.7 g/dL (3.5-5.0)
[2019-08-09 06:05] LABS: Chloride 99 mmol/L (98-107); Potassium 5.5 mmol/L (3.5-5.1)
[2019-08-09 06:06] LABS: Calcium 8.2 mg/dL (7.8-10.44); Sodium 134 mmol/L (136-145)
[2019-08-09 06:07] LABS: Glucose 207 mg/dL (70-105); Protein, Total 6.7 g/dL (6.0-8.3)
[2019-08-09 06:08] LABS: Anion Gap 14 mmol/L (10-20); Carbon Dioxide 27 mmol/L (22-29)
[2019-08-09 06:09] LABS: Bilirubin, Total 0.3 mg/dL (0.2-1.2)
[2019-08-09 06:10] LABS: Alkaline Phosphatase 187 U/L (40-110); Calc. Creatinine Clearance 35 mL/min (70-130); Estimated GFR-MDRD 26
[2019-08-09 06:11] LABS: BUN (Urea Nitrogen) 35 mg/dL (8.4-25.7)
[2019-08-09 06:12] LABS: AST (SGOT) 15 U/L (5-34)
[2019-08-09 06:13] LABS: ALT (SGPT) 9 U/L (8-55); Magnesium 2.2 mg/dL (1.6-2.6)
[2019-08-09 06:39] LABS: Actual Bicarbonate (HCO3a) 20.9 mEq/L (22-28); Base Excess (BEa) -2.7 mEq/L (-2.0 to +3.0); CO2 Tension 31.8 mmHg (35.0-45.0); Calcium, Ionized 1.01 mmol/L (1.12-1.30); Carboxyhemoglobin (COHb) 1.5 gm% (0.0-3.0); Hemoglobin (Hb) 9.9 g/dL (14.0-18.0); O2 Tension (PaO2) 64.6 mmHg (80.0-100.0); Potassium - ABG Lab 5.02 mmol/L (3.70-5.30); pH, Arterial 7.44 (7.35-7.45)
[2019-08-09 06:42] LABS: Puncture Site RBRACH
[2019-08-09] MEDS: Furosemide 40 MG/4 ML VIAL SLOW IVP SCH ×2 (07:30→13:23)
[2019-08-09] MEDS: Sodium Chloride 0.9% 1,000 ML IV SCH (08:12)
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
[2019-08-09] MEDS: Propofol 1,000 MG/100 ML VIAL IV PRN ×3 (08:25→19:36)
[2019-08-09] MEDS: Insulin Glargine 10 UNITS in Pre-Filled Syringe 1 EACH SC SCH (09:02)
--- NOTE | 2019-08-09 09:05 | RAD ---
SINGLE VIEW CHEST: Date: 08/09/2019 COMPARISON: 08/03/2019. HISTORY: Intubated patient with respiratory failure. FINDINGS: Single view of the chest shows normal sized cardiomediastinal silhouette. An endotracheal tube is see n with its tip in good position above the ada. A NG tube is seen with its tip in the stomach. Ther e is elevation of the right hemidiaphragm. There is no evidence of consolidation, mass, or pleural ef fusion. IMPRESSION: Appropriate position of lines and tubes. POS: [facility]
--- NOTE | 2019-08-09 09:13 | PDOC.HOSPP ---
- Subjective Encounter Date: 08/09/19 Encounter Time: 10:00 non-verbal Subjective: Patient became unresponsive early this morning, was found to be in hypercapneic respiratory failure and intubated. Now on vent in the ICU. - Objective Vital Signs & Weight: Vital Signs (12 hours) Pulse Resp BP Pulse Ox 08/09/19 06:44 94 142/62 H 08/09/19 06:27 81 20 98 08/09/19 05:50 95 08/09/19 05:32 20 Weight Admit Weight 173 lb 2.992 oz Weight 160 lb 14.999 oz I&O: 08/08/19 08/09/19 08/10/19 06:59 06:59 06:59 Intake Total 1140 560 Output Total 100 Balance 1040 560 Result Diagrams: 08/09/19 04:54 08/09/19 05:49 Additional Labs: Accuchecks 08/09/19 08/08/19 08/08/19 04:13 19:54 16:02 POC Glucose 252 H 280 H 216 H 08/08/19 13:39 POC Glucose 175 H Hospitalist ROS - Review of Systems ROS unobtainable: due to endotracheal tube - Medication Medications: Active Medications Generic Name Dose Route Start Last Admin Trade Name Freq PRN Reason Stop Dose Admin Albuterol/Ipratropium 3 ml 08/09/19 07:00 08/09/19 06:27 Duoneb NEB 3 ml [id number] RONI Administration Amlodipine Besylate 5 mg 08/05/19 09:00 08/08/19 08:28 Norvasc PO Not Given DAILY RONI Clonidine 0.2 mg 08/04/19 14:00 08/04/19 15:00 [id number] TD 0.2 mg Q7D RONI Administration Digoxin 0.125 mg 08/04/19 09:00 08/08/19 08:28 Lanoxin PO Not Given DAILY RONI Diphenhydramine HCl 25 mg 08/04/19 05:18 08/08/19 05:36 Benadryl PO 25 mg Q4H PRN Administration Itching Famotidine 40 mg 08/04/19 21:00 08/08/19 20:24 Pepcid PO 40 mg BID RONI Administration Furosemide 40 mg 08/04/19 06:00 08/08/19 14:08 Lasix SLOW IVP 40 mg 0600,1400 RONI Administration Gabapentin 300 mg 08/08/19 15:00 08/08/19 20:24 Neurontin PO 300 mg TID RONI Administration Guaifenesin/Dextromethorphan 15 ml 08/04/19 05:16 08/08/19 22:32 Robitussin Dm PO 15 ml Q4H PRN Administration Cough Vancomycin HCl 1 gm/ Device 200 mls @ 200 mls/hr 08/04/19 22:00 08/08/19 22: 25 IVPB 200 mls Q24HR@2200 RONI Administration Piperacillin Sod/Tazobactam 100 mls @ 200 mls/hr 08/04/19 05:00 08/09/19 04: 20 Sod 2.25 gm/ Sodium Chloride IVPB 100 mls 0500,1300,2100 RONI Administration Sodium Chloride 1,000 mls @ 70 mls/hr 08/09/19 05:45 08/09/19 08:12 Normal Saline 0.9% IV 1,000 mls .[id number] RONI Administration Insulin Human Lispro 0 units 08/04/19 12:33 08/08/19 17:56 Humalog SC 4 unit .MODERATE SLIDING SC PRN Administration Moderate Correctional Scale Metoprolol Tartrate 25 mg 08/04/19 09:00 08/08/19 20:24 Lopressor PO 25 mg BID RONI Administration Propofol 1,000 mg 08/09/19 05:33 08/09/19 08:25 Diprivan IV 09/08/19 05:33 1,000 mg INF PRN Administration TO ACHIEVE GOAL RASS Protocol Sodium Chloride 10 ml 08/04/19 21:00 08/08/19 20:25 Flush - Normal Saline IVF 10 ml Q12HR RONI Administration Tamsulosin HCl 0.4 mg 08/04/19 21:00 08/08/19 20:24 Flomax PO 0.4 mg HS RONI Administration - Exam General - other findings: mildly arousable, on sedation Heart: RRR, no murmur, no gallops, no rubs Respiratory: CTAB, no wheezes, no rales, no ronchi Gastrointestinal: soft, non-tender, non-distended, normal bowel sounds Extremities - other findings: Left heel with dressing c/d/i Psychiatric - other findings: sedated on the vent Hosp A/P (1) Acute hypercapnic respiratory failure Code(s): J96.02 - ACUTE RESPIRATORY FAILURE WITH HYPERCAPNIA Status: Acute (2) Foot ulcer due to secondary DM Code(s): E13.621 - OTHER SPECIFIED DIABETES MELLITUS WITH FOOT ULCER; L97.509 - NON-PRESSURE CHRONIC ULCER OTH PRT UNSP FOOT W UNSP SEVERITY Status: Acute (3) Sepsis Code(s): A41.9 - SEPSIS, UNSPECIFIED ORGANISM Status: Acute (4) Peripheral vascular disease Code(s): I73.9 - PERIPHERAL VASCULAR DISEASE, UNSPECIFIED Status: Acute (5) Chronic anticoagulation Code(s): Z79.01 - SWITCH ADJUSTER (CURRENT) USE OF ANTICOAGULANTS Status: Acute (6) CHF (congestive heart failure) Code(s): I50.9 - HEART FAILURE, UNSPECIFIED Status: Chronic (7) HLD (hyperlipidemia) Code(s): E78.5 - HYPERLIPIDEMIA, UNSPECIFIED Status: Chronic (8) HTN (hypertension) Code(s): I10 - ESSENTIAL (PRIMARY) HYPERTENSION Status: Chronic (9) Insulin dependent diabetes mellitus Code(s): E11.9 - TYPE 2 DIABETES MELLITUS WITHOUT COMPLICATIONS; Z79.4 - FPC (CURRENT) USE OF INSULIN Status: Chronic (10) Alcoholism Code(s): F10.20 - ALCOHOL DEPENDENCE, UNCOMPLICATED Status: Chronic (11) Tobacco abuse Code(s): Z72.0 - TOBACCO USE Status: Chronic (12) Protein-calorie malnutrition, moderate Code(s): E44.0 - MODERATE PROTEIN-CALORIE MALNUTRITION Status: Acute - Plan Patient found unresponsive this AM with acute hypercapneic respiratory failure. Intubated now in ICU, ABG normalized on vent. Uncertain cause of the respiratory failure. Will check CT head. Cardiac workup ordered. Patient adamantly refusing surgery. Dr. Myers Debrided wound and Torito consulted. Found necrotic material tracking proximally and into foot. On Vanc and Zosyn since 08/03/2019
[2019-08-09 09:14] LABS: Troponin I 0.065 ng/mL (< 0.028)
[2019-08-09] MEDS: Metoprolol Tartrate 25 MG TAB PO SCH ×2 (09:58→19:37)
[2019-08-09] MEDS: Famotidine 20 MG TAB PO SCH ×2 (09:58→19:37)
[2019-08-09] MEDS: Digoxin 0.125 MG TAB PO SCH (09:58)
[2019-08-09] MEDS: Gabapentin 300 MG CAP PO SCH ×3 (10:06→19:37)
[2019-08-09] MEDS: Amlodipine 5 MG TAB PO SCH (10:07)
[2019-08-09 11:58] LABS: Troponin I 0.094 ng/mL (< 0.028)
--- NOTE | 2019-08-09 12:35 | PRG ---
DATE OF SERVICE: 08/09/2019 SUBJECTIVE: Raúl Green suffered respiratory distress, compromise, hypercarbia, required intubation, transferred to the intensive care unit yesterday. Prior to this event early in the afternoon after his operation in the morning, I stopped by his room and showed him pictures of his foot, informed him that this would not heal and he would not have a functional foot and that I would recommend amputation [id number]. The patient, however, states "I'd rather have my brains blown out" than to have an amputation. I informed him that he once has an amputation, he could eventually have a prosthesis and be ambulatory and functional. The patient was adamant that he would not have an amputation. We will continue wound care and antibiotics. Await Dr. Ugarte' opinion regarding antibiotics. Also, await cultures. He had purulent material tracking distally in his foot and up towards his smaller ankle bones, navicular and cuneiform. Cultures all revealed Proteus species today. The patient is on the ventilator at this time. OBJECTIVE: VITAL SIGNS: Heart rate 90, blood pressure 118/76. LUNGS: Clear to auscultation. No wheezing. CARDIAC: Regular rate and rhythm. ABDOMEN: Soft. LABORATORY DATA: White count 30, hemoglobin 10.4. Sodium 134, potassium 5.5, creatinine 2.53, GFR 26. ASSESSMENT AND PLAN: Doing well post respiratory depression requiring intubation. Wean per Pulmonary. Wound care: View his wound with Wound Care tomorrow. Treat with antibiotics. Overall prognosis for the foot is poor. Even if this does heal, he has such an extensive infection and such destruction of ligaments and tendons that he probably will not have a well-functioning foot. Job ID: [id number]
--- NOTE | 2019-08-09 13:14 | CON ---
DATE OF CONSULTATION: 08/09/2019 SERVICE: Pulmonary Medicine. INTERVAL HISTORY: The patient is a 59-year-old white male with past medical history significant for a wound on the leg. Ultimately, he was taken down for surgical debridement of the lesion. He is postop day #1 from an extensive debridement of a stage IV decubitus ulcer on the left heel. He was getting some pain medication. This morning, he was found essentially unresponsive with a very low pH. He required a brief round of chest compressions, but he had very abrupt onset of return of circulation. In the meantime, he was placed on mechanical ventilator. He cannot provide any additional elements of the history currently. He is currently sedated and requiring a little bit of sedation. His oxygen requirements have improved overnight. PAST MEDICAL HISTORY: 1. Type 2 diabetes mellitus. 2. Dyslipidemia. 3. History of MA, refusing prior stress testing during previous admission. 4. Atrial fibrillation, chronic. 5. Congestive heart failure. 6. Tobacco abuse. 7. History of alcohol abuse. 8. Severe deconditioning, requiring wheelchair at present. PAST SURGICAL HISTORY: 1. Right knee surgery. 2. Tonsillectomy. 3. Umbilical hernia repair. SOCIAL HISTORY: Smokes 3 to 4 packs on a daily basis. He quit alcohol over 30 years ago, but prior to that, had an extensive alcohol history. He has no exposure to illicit drugs. Apparently, he stays at home with a girlfriend and her son. FAMILY HISTORY: Noncontributory. ALLERGIES: HYDROCODONE AND METFORMIN. MEDICATIONS: List of the patient's inpatient medications were reviewed. Multiple updates were made at this time. REVIEW OF SYSTEMS: Cannot be obtained as the patient is currently intubated and sedated. PHYSICAL EXAMINATION: VITAL SIGNS: Afebrile for the duration of the hospital stay with a maximum temperature of 99.3. Pulse 90, blood pressure 118/78, respirations 13, and saturation 96%, currently on 37% FiO2 and a PEEP of 5. GENERAL: The patient is intubated and sedated. HEENT: Normocephalic and atraumatic. Sclerae white. Conjunctivae pink. Oral mucosa is moist without lesions. LUNGS: Decent air entry. Rhonchi are present. There is no prolonged expiratory phase or wheezing appreciated. HEART: Normal rate. Regular. ABDOMEN: Soft, nontender, and nondistended bowel sounds are positive. MUSCULOSKELETAL: No cyanosis or clubbing. There is no pitting edema. The left lower extremity has a wound VAC in place. NEUROLOGIC: Grossly nonfocal. He is moving all 4 extremities. LABORATORY DATA: PH 6.98, CO2 of 136. Just over 2 hours after this occurred, his pH and pCO2 are both normal and he did not demonstrate any obstructive airflow limitation on mechanical ventilator waveforms. Creatinine 2.53 and uptrending, BUN 35. Potassium 5.5. Basic metabolic profile is otherwise unremarkable. Hemoglobin A1c 11.3. Liver function studies are unremarkable. Troponin is gently uptrending to 0.094. Vancomycin trough 16.9. Proteus is growing in the foot abscess, and 2 different heel ulcer cultures. Blood cultures x2 are unremarkable. IMAGING STUDIES: 1. CT of brain demonstrates significant volume loss throughout bilateral hemispheres. The images are fairly symmetric. I do not see any blood anywhere. Official read from Radiology is currently pending. 2. Chest x-ray demonstrates an endotracheal tube is in good position. Enteric catheter is coursing midline. It goes below the level of the diaphragm. I do not see any obvious infiltrates present. A little bit of cephalization is noted. Some atelectasis in the right base is likely present. Obvious infiltrate is not apparent. 3. Echocardiogram demonstrates 45% ejection fraction. ASSESSMENT: 1. Acute hypercapnic and hypoxic respiratory failure. 2. Hypoventilation, possibly medication effect. 3. Acute kidney injury on chronic kidney disease, stage 3. 4. Hyperkalemia. DISCUSSION AND PLAN: We will gently hydrate the patient over the next 24 hours. I will send gram stain and culture of his respiratory sputum as it has a yellow character to it. Antibiotics currently are appropriate for healthcare associated organisms. My suspicion is that this was simply a stress event associated with his near-complete dying spell. White blood cell count is up, but may represent a leukemoid reaction. Critical Care will continue to follow closely. CRITICAL CARE TIME: 30 minutes. Job ID: [id number]
[2019-08-09] MEDS: HumaLOG 300 UNITS/3 ML VIAL SC PRN ×2 (13:24→18:44)
--- NOTE | 2019-08-09 13:31 | CT ---
CT BRAIN WITHOUT CONTRAST: Date: 08/09/2019 HISTORY: Altered mental status, respiratory failure. FINDINGS: There are changes of cortical atrophy and chronic small vessel ischemic disease. The ventricular size is appropriate and the basilar cisterns are patent. No evidence of acute infarct, hemorrhage, midline shift, or abnormal extra-axial fluid collections ar e seen. The bony calvarium is intact. There is mucosal disease in the paranasal sinuses. IMPRESSION: No CT evidence of acute intracranial process. POS: [facility]
--- NOTE | 2019-08-09 13:47 | PDOC.PALPN ---
Palliative Progress Note - Subjective Sedated, mechanical ventilation. - Objective Vital Signs: Vital Signs - Most Recent Temp Pulse Resp BP Pulse Ox 98.7 F 80 13 125/74 100 08/09/19 08:00 08/09/19 13:03 08/09/19 13:03 08/09/19 10:45 08/09/19 13:03 - Physical Exam Constitutional: encephalitic, ill appearing HEENT: moist MMs, sclera anicteric Deviation from normal: mechanical ventilation Cardiovascular: RRR Gastrointestinal: soft, non-tender, incontinent Genitourinary: brasher catheter Musculoskeletal: no cyanosis, pulses present Deviation from normal: left heal with dressing intact Deviation from normal: sedated Skin: cap refill <2 seconds, no lesions, no rash Deviation from normal: Wound to left heal. Please refer to photos Deviation from normal: sedated - Assessment (1) Palliative care encounter Code(s): Z51.5 - ENCOUNTER FOR PALLIATIVE CARE Current Visit: Yes Status: Acute (2) Physical deconditioning Code(s): R53.81 - OTHER MALAISE Current Visit: Yes Status: Acute (3) Decubitus skin ulcer Code(s): L89.90 - PRESSURE ULCER OF UNSPECIFIED SITE, UNSPECIFIED STAGE Current Visit: Yes Status: Acute (4) Protein-calorie malnutrition, moderate Code(s): E44.0 - MODERATE PROTEIN-CALORIE MALNUTRITION Current Visit: Yes Status: Acute (5) Sepsis Code(s): A41.9 - SEPSIS, UNSPECIFIED ORGANISM Current Visit: Yes Status: Acute (6) CHF (congestive heart failure) Code(s): I50.9 - HEART FAILURE, UNSPECIFIED Current Visit: No Status: Chronic - Plan Plan: Called and spoke with patient sister Emy Morejon [phone] who has been designated a surrogate decision maker by other sibling, Sandhya Liriano. Emy was updated on her brothers condition, questions answered. Total of 3 living siblings, Sandhya Liriano [phone] was contacted. She has not had contact with her brother and agrees for her sister Emy to make decisions on her brothers behalf as needed. Sandhya does not wish to be contacted again. Continue with full resuscitative measures today, update and revisit resuscitation status as needed. Please also refer to Palliative Care RN notes in note section. Communicated with Dr Keyes [45] minutes spent on this encounter with >50% of the time in counseling and coordination of care. - ROS Non Response: due to endotracheal tube, due to mental status
[2019-08-09 14:22] LABS: Anion Gap 20 mmol/L (10-20); BUN (Urea Nitrogen) 40 mg/dL (8.4-25.7); Calc. Creatinine Clearance 32 mL/min (70-130); Carbon Dioxide 22 mmol/L (22-29); Chloride 98 mmol/L (98-107); Estimated GFR-MDRD 25; Glucose 220 mg/dL (70-105); Potassium 4.6 mmol/L (3.5-5.1); Sodium 135 mmol/L (136-145)
--- NOTE | 2019-08-09 15:44 | PDOC.PALFU ---
Palliative Care Follow-up Note Phone call from Andree Fields ([phone]) patient niece, her mother is the third sibling of patient Liliana Grace [phone]. Andree is in communication with her uncle as is her mother, he has called and informed them he was in the hospital. Discussed that Emy is the decision maker. Agreed but asked that Liliana be called as well if possible with information as the family does not fully communicate.
[2019-08-09] MEDS: Tamsulosin HCl 0.4 MG CAP PO SCH (19:37)
[2019-08-09 21:37] LABS: Vancomycin, Trough 23.6 ug/mL
[2019-08-09] MEDS: Vancomycin HCl 750 MG in Sodium Chloride 0.9% 250 ML 250 ML IVPB SCH (22:11)
[2019-08-10 03:55] LABS: Hemoglobin 10.6 g/dL (14.0-18.0); Mean Corpuscular HGB CONC 32.3 g/dL (32.0-36.0); Mean Corpuscular Volume 89.9 fL (78.0-98.0); Platelet Count 310 thou/uL (130-400); RBC Distribution Width 12.9 % (11.5-14.5); Red Blood Cell (RBC) Count 3.65 mill/uL (4.70-6.10); White Blood Cell (WBC) Count 17.8 thou/uL (4.8-10.8)
[2019-08-10 03:57] LABS: ALT (SGPT) Less than 7 U/L (8-55); AST (SGOT) 10 U/L (5-34); Albumin 2.3 g/dL (3.5-5.0); Alkaline Phosphatase 136 U/L (40-110); Anion Gap 21 mmol/L (10-20); BUN (Urea Nitrogen) 43 mg/dL (8.4-25.7); Bilirubin, Total 0.3 mg/dL (0.2-1.2); Calc. Creatinine Clearance 31 mL/min (70-130); Calcium 7.8 mg/dL (7.8-10.44); Carbon Dioxide 17 mmol/L (22-29); Chloride 102 mmol/L (98-107); Estimated GFR-MDRD 24; Globulin 3.5 g/dL (2.4-3.5); Glucose 121 mg/dL (70-105); Potassium 3.7 mmol/L (3.5-5.1); Protein, Total 5.8 g/dL (6.0-8.3); Sodium 136 mmol/L (136-145)
[2019-08-10 04:15] LABS: Digoxin 0.29 ng/mL (0.8-2.0)
[2019-08-10] MEDS: Sodium Chloride 0.9% 1,000 ML IV SCH (04:31)
[2019-08-10 04:39] LABS: Hypochromia SLIGHT = 6-15 cells (100X) (0-5/hpf); Lymphocytes 5 % (21-51); MDiff Complete? YES; Monocytes 4 % (0-10); Neutrophil 91 % (42-75); Platelet Morphology Comment Appears Adequate
[2019-08-10] MEDS: Propofol 1,000 MG/100 ML VIAL IV PRN (05:04)
[2019-08-10] MEDS: Piperacillin/Tazobactam 2.25 GM in Sodium Chloride 0.9% 100 ML IVPB SCH ×3 (05:04→21:06)
[2019-08-10] MEDS: Furosemide 40 MG/4 ML VIAL SLOW IVP SCH ×2 (05:04→13:39)
[2019-08-10 07:07] LABS: Actual Bicarbonate (HCO3a) 22.6 mEq/L (22-28); CO2 Tension 37.7 mmHg (35.0-45.0); Calcium, Ionized 1.06 mmol/L (1.12-1.30); Carboxyhemoglobin (COHb) 1.2 gm% (0.0-3.0); Hemoglobin (Hb) 11.3 g/dL (14.0-18.0); O2 Tension (PaO2) 91.9 mmHg (80.0-100.0); Potassium - ABG Lab 3.87 mmol/L (3.70-5.30)
[2019-08-10 07:13] LABS: ALV-art Gradient 153.305 (0-20)
--- NOTE | 2019-08-10 08:20 | RAD ---
ONE VIEW CHEST: HISTORY: Daily followup while on ventilator. COMPARISON: 08/09/2019. FINDINGS: Endotracheal tube and nasogastric tube remain in place. There is increased density at the right lung base, some of which is related to elevation of the right hemidiaphragm with probable atelectasis. P leural fluid in the right lung base cannot be excluded. The left lung appears clear. Cardiac silhou ette and pulmonary vasculature are magnified by projection. No other interval change. IMPRESSION: Elevation of the right hemidiaphragm with increased density at the right lung base probably related t o atelectasis. Small right pleural effusion is a possibility. POS: [facility]
--- NOTE | 2019-08-10 08:51 | PDOC.HOSPP ---
- Subjective Encounter Date: 08/10/19 Encounter Time: 10:00 Subjective: Patient extubated this AM. Wants to go home. Still a little confused. Asking for nicotine patch if can't go out to smoke. Usually smokes 3-4 packs per day. - Objective Vital Signs & Weight: Vital Signs (12 hours) Temp Pulse Resp BP Pulse Ox 08/10/19 07:01 87 13 100 08/10/19 07:00 98.1 F 08/10/19 06:58 90 121/67 08/10/19 06:00 13 08/10/19 04:00 99.1 F 13 08/10/19 02:00 15 08/10/19 00:00 98.1 F 15 08/09/19 23:06 87 13 100 08/09/19 22:00 13 Weight Admit Weight 173 lb 2.992 oz Weight 176 lb 2.389 oz Most Recent Monitor Data Heart Rate from ECG 99 NIBP 118/69 NIBP BP-Mean 85 Respiration from ECG 17 SpO2 94 I&O: 08/09/19 08/10/19 08/11/19 06:59 06:59 06:59 Intake Total 560 2415 Output Total 1635 70 Balance 560 780 -70 Result Diagrams: 08/10/19 03:05 08/10/19 03:05 Additional Labs: Accuchecks 08/09/19 08/09/19 08/09/19 23:51 18:45 13:02 POC Glucose 108 161 H 250 H Hospitalist ROS - Review of Systems Constitutional: denies: fever, chills Respiratory: denies: cough, shortness of breath Cardiovascular: denies: chest pain, palpitations Gastrointestinal: denies: nausea, vomiting, abdominal pain Genitourinary: denies: dysuria, hematuria - Medication Medications: Active Medications Generic Name Dose Route Start Last Admin Trade Name Freq PRN Reason Stop Dose Admin Albuterol/Ipratropium 3 ml 08/09/19 07:00 08/10/19 07:01 Duoneb NEB 3 ml [id number] RONI Administration Amlodipine Besylate 5 mg 08/05/19 09:00 08/09/19 10:07 Norvasc PO Not Given DAILY RONI Clonidine 0.2 mg 08/04/19 14:00 08/04/19 15:00 [id number] TD 0.2 mg Q7D RONI Administration Digoxin 0.125 mg 08/04/19 09:00 08/09/19 09:58 Lanoxin PO 0.125 mg DAILY RONI Administration Diphenhydramine HCl 25 mg 08/04/19 05:18 08/08/19 05:36 Benadryl PO 25 mg Q4H PRN Administration Itching Famotidine 40 mg 08/04/19 21:00 08/09/19 19:37 Pepcid PO 40 mg BID RONI Administration Furosemide 40 mg 08/04/19 06:00 08/10/19 05:04 Lasix SLOW IVP 40 mg 0600,1400 RONI Administration Gabapentin 300 mg 08/08/19 15:00 08/09/19 19:37 Neurontin PO 300 mg TID RONI Administration Guaifenesin/Dextromethorphan 15 ml 08/04/19 05:16 08/08/19 22:32 Robitussin Dm PO 15 ml Q4H PRN Administration Cough Piperacillin Sod/Tazobactam 100 mls @ 200 mls/hr 08/04/19 05:00 08/10/19 05: 04 Sod 2.25 gm/ Sodium Chloride IVPB 100 mls 0500,1300,2100 RONI Administration Insulin Glargine 10 units/ 0.1 mls @ 0 mls/hr 08/09/19 09:00 08/09/19 09:02 Miscellaneous Medication SC Not Given QAM RONI Sodium Chloride 1,000 mls @ 70 mls/hr 08/09/19 05:45 08/10/19 04:31 Normal Saline 0.9% IV 1,000 mls .[id number] RONI Administration Vancomycin HCl 750 mg/ Sodium 250 mls @ 250 mls/hr 08/09/19 22:00 08/09/19 22 :11 Chloride IVPB 250 mls 2200 RONI Administration Insulin Human Lispro 0 units 08/04/19 12:33 08/09/19 18:44 Humalog SC 2 unit .MODERATE SLIDING SC PRN Administration Moderate Correctional Scale Metoprolol Tartrate 25 mg 08/04/19 09:00 08/09/19 19:37 Lopressor PO 25 mg BID RONI Administration Propofol 1,000 mg 08/09/19 05:33 08/10/19 05:04 Diprivan IV 09/08/19 05:33 1,000 mg INF PRN Administration TO ACHIEVE GOAL RASS Protocol Sodium Chloride 10 ml 08/04/19 21:00 08/09/19 19:46 Flush - Normal Saline IVF Not Given Q12HR RONI Tamsulosin HCl 0.4 mg 08/04/19 21:00 08/09/19 19:37 Flomax PO 0.4 mg HS RONI Administration - Exam General Appearance: awake alert ENT: moist mucosa Heart: RRR, no murmur, no gallops, no rubs Respiratory: CTAB, no wheezes, no rales, no ronchi Gastrointestinal: soft, non-tender, non-distended, normal bowel sounds Extremities - other findings: dressing to LLE c/d/i Psychiatric: normal affect, oriented to person, oriented to place Hosp A/P (1) Acute hypercapnic respiratory failure Code(s): J96.02 - ACUTE RESPIRATORY FAILURE WITH HYPERCAPNIA Status: Acute (2) Foot ulcer due to secondary DM Code(s): E13.621 - OTHER SPECIFIED DIABETES MELLITUS WITH FOOT ULCER; L97.509 - NON-PRESSURE CHRONIC ULCER OTH PRT UNSP FOOT W UNSP SEVERITY Status: Acute (3) Sepsis Code(s): A41.9 - SEPSIS, UNSPECIFIED ORGANISM Status: Acute (4) Peripheral vascular disease Code(s): I73.9 - PERIPHERAL VASCULAR DISEASE, UNSPECIFIED Status: Acute (5) Chronic anticoagulation Code(s): Z79.01 - FDC (CURRENT) USE OF ANTICOAGULANTS Status: Acute (6) CHF (congestive heart failure) Code(s): I50.9 - HEART FAILURE, UNSPECIFIED Status: Chronic (7) HLD (hyperlipidemia) Code(s): E78.5 - HYPERLIPIDEMIA, UNSPECIFIED Status: Chronic (8) HTN (hypertension) Code(s): I10 - ESSENTIAL (PRIMARY) HYPERTENSION Status: Chronic (9) Insulin dependent diabetes mellitus Code(s): E11.9 - TYPE 2 DIABETES MELLITUS WITHOUT COMPLICATIONS; Z79.4 - LOCOMOTIVE PIPE FITTER (CURRENT) USE OF INSULIN Status: Chronic (10) Alcoholism Code(s): F10.20 - ALCOHOL DEPENDENCE, UNCOMPLICATED Status: Chronic (11) Tobacco abuse Code(s): Z72.0 - TOBACCO USE Status: Chronic (12) Protein-calorie malnutrition, moderate Code(s): E44.0 - MODERATE PROTEIN-CALORIE MALNUTRITION Status: Acute (13) Acute renal failure superimposed on stage 4 chronic kidney disease Code(s): N17.9 - ACUTE KIDNEY FAILURE, UNSPECIFIED; N18.4 - CHRONIC KIDNEY DISEASE, STAGE 4 (SEVERE) Status: Acute - Plan Patient found unresponsive AM of 08/09/2019 with acute hypercapneic respiratory failure. Intubated now in ICU, extubated this AM. Uncertain cause of the respiratory failure. CT head negative. Cardiac workup negative. Patient adamantly refusing surgery. Dr. Myers Debrided wound and Torito consulted. Found necrotic material tracking proximally and into foot. On Vanc and Zosyn since 08/03/2019
[2019-08-10] MEDS: Insulin Glargine 10 UNITS in Pre-Filled Syringe 1 EACH SC SCH (09:00)
[2019-08-10] MEDS: Metoprolol Tartrate 25 MG TAB PO SCH ×2 (09:06→21:01)
[2019-08-10] MEDS: Gabapentin 300 MG CAP PO SCH ×3 (09:06→21:01)
[2019-08-10] MEDS: Famotidine 20 MG TAB PO SCH ×2 (09:06→21:01)
[2019-08-10] MEDS: Digoxin 0.125 MG TAB PO SCH (09:07)
[2019-08-10] MEDS ORDERED: Nicotine 14 MG PATCH TD SCH (10:30)
--- NOTE | 2019-08-10 10:34 | PRG ---
DATE OF SERVICE: 08/10/2019 SUBJECTIVE: Raúl Green required intubation last night for respiratory depression and hypercapnia. Dr. Ba saw him. The patient is being weaned from the ventilator this morning. He is awake, indicating me, communicating with me nonverbally to remove his tube. Dr. Costello and I were both at the bedside. I looked at the patient's right heel wound. It is extensive, exposing the entire calcaneus and tracking distal in the foot and up towards the ankle, cuneiform, navicular bones. He has tracking up towards the medial malleolus. This foot is not functional. Ligaments and tendons have been destroyed. He has severe Proteus abscess. Purulent tracking into the distal foot and ankle bones. We have recommended BKA versus home with hospice. DNR status. Have communicated these recommendations to the patient and told him these are his only choices. The patient has a friend at home that has been doing wound care in the past. He is not a good candidate to go home with a wound VAC because of compliance. I would recommend normal saline wet-to-dry dressings, if discharged home. If the patient decides to have an amputation today, we would perform that later today. OBJECTIVE: VITAL SIGNS: Blood pressure 142/66, respiratory rate 26. LABORATORY DATA: Hemoglobin 10, white count 17 down from 30,000. Cultures from his foot, Proteus. ASSESSMENT AND PLAN: Septic foot due to a decubitus with poor wound care at home and noncompliance and ongoing tobacco abuse, 3 to 4 packs per day. He does have some evidence of PAD, but he should heal a BK stump without problems and does not need intervention for his PAD. He needs a BKA and if he agrees with this, we will perform it later today. Job ID: [id number]
--- NOTE | 2019-08-10 10:54 | EKG ---
Test Reason : Blood Pressure : / mmHG Vent. Rate : 097 BPM Atrial Rate : 096 BPM P-R Int : 000 ms QRS Dur : 146 ms QT Int : 396 ms P-R-T Axes : 000 -65 062 degrees QTc Int : 502 ms Atrial fibrillation Left axis deviation Right bundle branch block Inferior infarct , age undetermined Anteroseptal infarct , age undetermined Abnormal ECG Confirmed by YESSENIA INFANTE D.O. ([id number]), editorial specialist [place] [facility] ([id number]) on 08/10/2019 10:53:35 AM Referred By: Confirmed By:YESSENIA INFANTE D.O.
--- NOTE | 2019-08-10 11:24 | PDOC.PALPN ---
Palliative Progress Note - Subjective Patient extubated, breathing easily on room air. Pronounced confusion, continues to refuse amputation which he refused prior to onset of confusion, agreeing to debridement of wound. Today patient states he is here because he fell out of his car and injured his leg, believes he is in [place] - Objective Vital Signs: Vital Signs - Most Recent Temp Pulse Resp BP Pulse Ox 98.1 F 98 26 H 121/67 100 08/10/19 07:00 08/10/19 09:07 08/10/19 10:00 08/10/19 06:58 08/10/19 08:00 - Physical Exam Constitutional: encephalitic, ill appearing HEENT: moist MMs, sclera anicteric Respiratory: no wheezing, unlabored breathing Gastrointestinal: non-tender, no distention Genitourinary: brasher catheter Deviation from normal: Dressing to left lower extremity Neurology: moves all 4 limbs Skin: cap refill <2 seconds, no lesions Deviation from normal: Wounds as per wound photos Deviation from normal: Oriented to self, confusion with mild agitation - Assessment (1) Palliative care encounter Code(s): Z51.5 - ENCOUNTER FOR PALLIATIVE CARE Current Visit: Yes Status: Acute (2) Physical deconditioning Code(s): R53.81 - OTHER MALAISE Current Visit: Yes Status: Acute (3) Decubitus skin ulcer Code(s): L89.90 - PRESSURE ULCER OF UNSPECIFIED SITE, UNSPECIFIED STAGE Current Visit: Yes Status: Acute (4) Protein-calorie malnutrition, moderate Code(s): E44.0 - MODERATE PROTEIN-CALORIE MALNUTRITION Current Visit: Yes Status: Acute (5) Sepsis Code(s): A41.9 - SEPSIS, UNSPECIFIED ORGANISM Current Visit: Yes Status: Acute (6) CHF (congestive heart failure) Code(s): I50.9 - HEART FAILURE, UNSPECIFIED Current Visit: No Status: Chronic - Plan Plan: Called and spoke with Emy patient sister who was made decision maker by consensus of three siblings, Sandhya agreed as previously documented. Emy is communicating with patient girlfriend. Patient previously on multiple occasions stated he did not want his leg amputated. It is life limiting to not proceed with amputation. Emy has transitioned her brother to [facility] and is requesting hospice consult to provide comfort to her brother. She states she will communicate to other family members and patient girlfriend. Communicated with Dr Myers and Dr Keyes. DNAR completed via phone with Shiraz Hill RN. Hospice consult placed, communicated with Mignon HANSON. Mr Green may be a consideration for inpatient hospice secondary to need to mange symptoms related to sepsis resulting from progressing infection of left lower extremity. [60] minutes spent on this encounter with >50% of the time in counseling and coordination of care. - ROS Non Response: due to mental status
[2019-08-10] MEDS: Amlodipine 5 MG TAB PO SCH (11:53)
[2019-08-10] MEDS: HumaLOG 300 UNITS/3 ML VIAL SC PRN ×2 (12:10→16:16)
--- NOTE | 2019-08-10 15:01 | PRG ---
DATE OF SERVICE: 08/10/2019 SERVICE: Pulmonary Medicine. INTERVAL HISTORY: The patient is doing fine from respiratory standpoint. He cannot provide any additional elements of the history. He is currently sedated and intubated. Otherwise, there has been minimal change to his condition. PHYSICAL EXAMINATION: VITAL SIGNS: Afebrile. Pulse 80, blood pressure 137/74, respirations 25, saturation 98%, currently on 40% FiO2, and PEEP of 5. GENERAL: The patient is awake and alert, in no apparent distress. LUNGS: Decent air entry without any prolonged expiratory phase or wheezing. HEART: Normal rate, regular. ABDOMEN: Soft, nontender, nondistended. Bowel sounds are positive. MUSCULOSKELETAL: No cyanosis or clubbing. No pitting in the bilateral lower extremities. NEUROLOGIC: Grossly nonfocal. LABORATORY DATA: WBC 17.8, hemoglobin 10.6, platelets 310,000. PH of 7.4, pCO2 of 37, pO2 of 92. Creatinine 2.69, BUN 43. Basic metabolic profile is otherwise unremarkable. Potassium 3.7. Liver function studies are completely unremarkable, except for an alkaline phosphatase that is downtrending nicely to 136. Proteus is growing in the heel culture x3. Sputum culture is negative to date. Blood cultures x2 are also unremarkable. There are few gram-positive cocci in clusters present. IMAGING DATA: Chest x-ray demonstrates elevated right hemidiaphragm. Endotracheal tube is in good position. There is an enteric catheter coursing midline below the level of the diaphragm. Otherwise, I really do not see any acute cardiopulmonary abnormality. A pleural parenchymal abnormality in the right lower lobe cannot be excluded. ASSESSMENT: 1. Acute hypoxic and hypercapnic respiratory failure, resolved. 2. Hypoventilation, possibly medication effect. 3. Acute kidney injury on chronic kidney disease 3. 4. Hyperkalemia, resolved. DISCUSSION AND PLAN: The patient appears to be pretty close to euvolemia. As such, Lasix will be interrupted. At this point, we will put him on a spontaneous breathing trial. If he meets criteria at the end of it, extubation will be considered. Ultimately, on discharge from this hospital stay, he will have to consent to an amputation or hospice. I really do not think there is much middle ground here. Pulmonary Critical Care will follow along. CRITICAL CARE TIME: 30 minutes. Job ID: [id number]
[2019-08-10] MEDS: Lorazepam 2 MG/ML VIAL SLOW IVP PRN (21:01)
[2019-08-10] MEDS: Tamsulosin HCl 0.4 MG CAP PO SCH (21:01)
[2019-08-10] MEDS: Vancomycin HCl 750 MG in Sodium Chloride 0.9% 250 ML 250 ML IVPB SCH (22:28)
[2019-08-11] MEDS ORDERED: Lorazepam 2 MG/ML VIAL SLOW IVP SCH (00:45)
[2019-08-11] MEDS: Sodium Chloride 0.9% 1,000 ML IV SCH (03:40)
[2019-08-11 04:16] LABS: ALT (SGPT) 9 U/L (8-55); AST (SGOT) 19 U/L (5-34); Albumin 2.5 g/dL (3.5-5.0); Alkaline Phosphatase 133 U/L (40-110); Anion Gap 22 mmol/L (10-20); BUN (Urea Nitrogen) 48 mg/dL (8.4-25.7); Bilirubin, Total 0.4 mg/dL (0.2-1.2); Calc. Creatinine Clearance 29 mL/min (70-130); Calcium 7.9 mg/dL (7.8-10.44); Carbon Dioxide 18 mmol/L (22-29); Chloride 104 mmol/L (98-107); Estimated GFR-MDRD 21; Globulin 3.7 g/dL (2.4-3.5); Glucose 205 mg/dL (70-105); Potassium 3.6 mmol/L (3.5-5.1); Protein, Total 6.2 g/dL (6.0-8.3); Sodium 140 mmol/L (136-145)
[2019-08-11] MEDS: Piperacillin/Tazobactam 2.25 GM in Sodium Chloride 0.9% 100 ML IVPB SCH ×3 (04:24→20:41)
[2019-08-11 04:55] LABS: Band 1 % (5-11); Hemoglobin 9.9 g/dL (14.0-18.0); Lymphocytes 6 % (21-51); MDiff Complete? YES; Mean Corpuscular HGB CONC 32.3 g/dL (32.0-36.0); Mean Corpuscular Hemoglobin 29.1 pg (27.0-31.0); Mean Platelet Volume 8.9 fL (7.4-10.4); Monocytes 4 % (0-10); Neutrophil 89 % (42-75); Platelet Count 348 thou/uL (130-400); RBC Distribution Width 12.8 % (11.5-14.5); White Blood Cell (WBC) Count 15.6 thou/uL (4.8-10.8)
[2019-08-11] MEDS: HumaLOG 300 UNITS/3 ML VIAL SC PRN ×3 (06:23→22:37)
[2019-08-11] MEDS: Furosemide 40 MG/4 ML VIAL SLOW IVP SCH (06:27)
[2019-08-11] MEDS: Lorazepam 2 MG/ML VIAL SLOW IVP PRN (06:29)
[2019-08-11] MEDS: Insulin Glargine 10 UNITS in Pre-Filled Syringe 1 EACH SC SCH (09:31)
[2019-08-11] MEDS: Amlodipine 5 MG TAB PO SCH (09:36)
[2019-08-11] MEDS: Digoxin 0.125 MG TAB PO SCH (09:37)
[2019-08-11] MEDS: Gabapentin 300 MG CAP PO SCH ×3 (09:37→20:41)
[2019-08-11] MEDS: Metoprolol Tartrate 25 MG TAB PO SCH ×2 (09:37→20:41)
[2019-08-11] MEDS: Famotidine 20 MG TAB PO SCH ×2 (09:37→20:41)
[2019-08-11] MEDS: Nicotine 21 MG PATCH TD SCH (09:38)
--- NOTE | 2019-08-11 12:49 | PDOC.HOSPP ---
- Subjective Subjective: Seen and examined. Patient is status post a debridement by Dr. Myers, he has refused amputation. Antibiotics are being adjusted appropriately by infectious disease specialist Dr. Ugarte. Pulmonology in the case. Patient is drowsy this a.m., coughing with food and I have had him evaluated by speech therapy. Speech therapy recommendations reviewed. Unfortunately this patient has poor short- term and long-term prognosis, we are considering hospice therapy and coordinating with his family. - Objective Vital Signs & Weight: Vital Signs (12 hours) Temp Pulse Resp BP Pulse Ox 08/11/19 09:37 104 H 08/11/19 09:36 104 H 08/11/19 08:07 98.2 F 104 H 20 172/94 H 98 08/11/19 07:22 107 H 20 91 L 08/11/19 03:40 98.0 F 96 20 134/68 93 L 08/11/19 01:14 85 18 92 L Weight Admit Weight 173 lb 2.992 oz Weight 193 lb 4 oz Most Recent Monitor Data Heart Rate from ECG 99 NIBP 137/74 NIBP BP-Mean 95 Respiration from ECG 26 SpO2 97 I&O: 08/10/19 08/11/19 08/12/19 06:59 06:59 06:59 Intake Total 2415 1064.3 632 Output Total 1635 395 Balance 780 669.3 632 Result Diagrams: 08/11/19 03:48 08/11/19 03:48 Additional Labs: Accuchecks 08/11/19 08/11/19 08/10/19 11:19 06:22 21:18 POC Glucose 180 H 211 H 190 H 08/10/19 08/10/19 16:08 11:59 POC Glucose 213 H 223 H Radiology Reviewed by me: Yes Hospitalist ROS - Review of Systems ROS unobtainable: due to mental status - Medication Medications: Active Medications Generic Name Dose Route Start Last Admin Trade Name Freq PRN Reason Stop Dose Admin Albuterol/Ipratropium 3 ml 08/09/19 07:00 08/11/19 07:22 Duoneb NEB 3 ml [id number] RONI Administration Amlodipine Besylate 5 mg 08/05/19 09:00 08/11/19 09:36 Norvasc PO 5 mg DAILY RONI Administration Clonidine 0.2 mg 08/04/19 14:00 08/04/19 15:00 [id number] TD 0.2 mg Q7D RONI Administration Digoxin 0.125 mg 08/04/19 09:00 08/11/19 09:37 Lanoxin PO 0.125 mg DAILY RONI Administration Diphenhydramine HCl 25 mg 08/04/19 05:18 08/08/19 05:36 Benadryl PO 25 mg Q4H PRN Administration Itching Famotidine 40 mg 08/04/19 21:00 08/11/19 09:37 Pepcid PO 40 mg BID RONI Administration Furosemide 40 mg 08/04/19 06:00 08/11/19 06:27 Lasix SLOW IVP 40 mg 0600,1400 RONI Administration Gabapentin 300 mg 08/08/19 15:00 08/11/19 09:37 Neurontin PO 300 mg TID RONI Administration Guaifenesin/Dextromethorphan 15 ml 08/04/19 05:16 08/08/19 22:32 Robitussin Dm PO 15 ml Q4H PRN Administration Cough Piperacillin Sod/Tazobactam 100 mls @ 200 mls/hr 08/04/19 05:00 08/11/19 04: 24 Sod 2.25 gm/ Sodium Chloride IVPB 100 mls 0500,1300,2100 RONI Administration Insulin Glargine 10 units/ 0.1 mls @ 0 mls/hr 08/09/19 09:00 08/11/19 09:31 Miscellaneous Medication SC 0.1 mls QAM RONI Administration Sodium Chloride 1,000 mls @ 10 mls/hr 08/09/19 05:45 08/11/19 03:40 Normal Saline 0.9% IV 1,000 mls .Q24H RONI Administration Vancomycin HCl 750 mg/ Sodium 250 mls @ 250 mls/hr 08/09/19 22:00 08/10/19 22 :28 Chloride IVPB 250 mls 2200 RONI Administration Insulin Human Lispro 0 units 08/04/19 12:33 08/11/19 06:23 Humalog SC 4 unit .MODERATE SLIDING SC PRN Administration Moderate Correctional Scale Lorazepam 0.5 mg 08/10/19 20:36 08/11/19 06:29 Ativan SLOW IVP 0.5 mg Q6H PRN Administration Anxiety/Agitation Metoprolol Tartrate 25 mg 08/04/19 09:00 08/11/19 09:37 Lopressor PO 25 mg BID RONI Administration Nicotine 21 mg 08/11/19 09:00 08/11/19 09:38 Nicoderm Patch TD 21 mg DAILY RONI Administration Sodium Chloride 10 ml 08/04/19 21:00 08/11/19 09:38 Flush - Normal Saline IVF 10 ml Q12HR RONI Administration Sodium Chloride 10 ml 08/04/19 10:17 08/11/19 06:27 Flush - Normal Saline IVF 10 ml PRN PRN Administration Saline Flush Tamsulosin HCl 0.4 mg 08/04/19 21:00 08/10/19 21:01 Flomax PO 0.4 mg HS RONI Administration - Exam General Appearance: ill appearing Eye: PERRL, anicteric sclera ENT: normocephalic atraumatic, moist mucosa Neck: supple, symmetric, no lymphadenopathy Heart: no murmur, no gallops, no rubs Respiratory: CTAB, no wheezes, no rales, no ronchi, normal chest expansion, no tachypnea Gastrointestinal: soft, non-tender, no guarding, no rigidity Extremities: 1+ LE edema Skin: no lesions, no rashes Skin - other findings: Dressing clean, dry, and intact Neurological: cranial nerve grossly intact, no focal deficits Musculoskeletal: generalized weakness Psychiatric: oriented to person Hosp A/P (1) Decubitus skin ulcer Code(s): L89.90 - PRESSURE ULCER OF UNSPECIFIED SITE, UNSPECIFIED STAGE Status : Acute (2) Sepsis Code(s): A41.9 - SEPSIS, UNSPECIFIED ORGANISM Status: Acute (3) Ataxia Code(s): R27.0 - ATAXIA, UNSPECIFIED Status: Acute (4) Tobacco abuse Code(s): Z72.0 - TOBACCO USE Status: Chronic (5) Alcoholism Code(s): F10.20 - ALCOHOL DEPENDENCE, UNCOMPLICATED Status: Chronic (6) CHF (congestive heart failure) Code(s): I50.9 - HEART FAILURE, UNSPECIFIED Status: Chronic (7) Foot ulcer due to secondary DM Code(s): E13.621 - OTHER SPECIFIED DIABETES MELLITUS WITH FOOT ULCER; L97.509 - NON-PRESSURE CHRONIC ULCER OTH PRT UNSP FOOT W UNSP SEVERITY Status: Acute (8) HLD (hyperlipidemia) Code(s): E78.5 - HYPERLIPIDEMIA, UNSPECIFIED Status: Chronic (9) HTN (hypertension) Code(s): I10 - ESSENTIAL (PRIMARY) HYPERTENSION Status: Chronic (10) Insulin dependent diabetes mellitus Code(s): E11.9 - TYPE 2 DIABETES MELLITUS WITHOUT COMPLICATIONS; Z79.4 - CUSTODIAL (CURRENT) USE OF INSULIN Status: Chronic (11) Protein-calorie malnutrition, moderate Code(s): E44.0 - MODERATE PROTEIN-CALORIE MALNUTRITION Status: Acute - Plan Plan: medical unit palliative care consultation for goals of care, recommendations appreciated general surgery consultation, recommendations appreciated Infectious disease consultation, recommendations appreciated broad-spectrum IV antibiotics wound cultures de-escalate to culture and sensitivity as able S/p debridement of infected tissue, refused amputation acute kidney injury present on admission, improved with IV fluids moderate protein calorie malnutrition present on admission extensive tobacco abuse history, nicotine patch history of alcohol abuse, states he has quit ataxia, has not walked in 6-8 weeks PT/ OT? ST Eval and treat Pleasure feeding, modifications to consistency appreciated per ST long and short acting insulin for glucose control blood pressure control G.I. prophylaxis DVT prophylaxis, full dose eliquis home medication continued Disposition: terminal gauger prognosis is poor. Considering hospice.
--- NOTE | 2019-08-11 13:39 | PDOC.PALPN ---
Palliative Progress Note - Subjective Assessed Mr Green, remains confused. S/P debridement of lower extremity secondary to refusal of amputation. Continues to maintain - Objective Vital Signs: Vital Signs - Most Recent Temp Pulse Resp BP Pulse Ox 98.2 F 107 H 20 172/94 H 90 L 08/11/19 08:07 08/11/19 12:59 08/11/19 12:59 08/11/19 08:07 08/11/19 12:59 - Assessment (1) Palliative care encounter Code(s): Z51.5 - ENCOUNTER FOR PALLIATIVE CARE Current Visit: Yes Status: Acute (2) Physical deconditioning Code(s): R53.81 - OTHER MALAISE Current Visit: Yes Status: Acute (3) Decubitus skin ulcer Code(s): L89.90 - PRESSURE ULCER OF UNSPECIFIED SITE, UNSPECIFIED STAGE Current Visit: Yes Status: Acute (4) Protein-calorie malnutrition, moderate Code(s): E44.0 - MODERATE PROTEIN-CALORIE MALNUTRITION Current Visit: Yes Status: Acute (5) Sepsis Code(s): A41.9 - SEPSIS, UNSPECIFIED ORGANISM Current Visit: Yes Status: Acute (6) CHF (congestive heart failure) Code(s): I50.9 - HEART FAILURE, UNSPECIFIED Current Visit: No Status: Chronic - Plan Plan: [] minutes spent on this encounter with >50% of the time in counseling and coordination of care.
--- NOTE | 2019-08-11 13:50 | PDOC.EVN ---
Event Note - Event Note Event Note: Discussed case at length with the patient's sister Emy Morejon at [phone] , time was given for questions, all answered in detail. Patient's sister as surrogate decision-maker. We had a long discussion considering the goals of care. Patient has explicitly made his desires known when he was cognizant and alert and oriented. Patient was adamant about not having any amputations and he has expressed this to myself, surgery, and pulmonology. The patient sister agrees that this is not what the patient would want. At this point with altered mental status likely from worsening sepsis. Patient with tachycardia and tachypnea. Proteus infection with abscess and possible osteomyelitis. Pain is not controlled, I am starting a fentanyl patch. We will continue Ativan as needed for anxiety and agitation. We are considering inpatient hospice and this is the desire of the patient sister Emy. I discussed the case briefly with reproductive healthcare assistant who stated that in the condition he is in with confusion, pain not controlled, and agitation they were not able to accept him. With the addition of fentanyl patch and pain control the patient will hopefully be more manageable. Short-term prognosis is poor.
[2019-08-11] MEDS ORDERED: Haloperidol Lactate 5 MG/ML VIAL IM PRN (13:51)
[2019-08-11] MEDS: cloNIDine 0.2mg/24 Hour PATCH TD SCH (14:15)
--- NOTE | 2019-08-11 15:35 | PRG ---
DATE OF SERVICE: 08/11/2019 SERVICE: Pulmonary Medicine. INTERVAL HISTORY: The patient is doing really well from respiratory standpoint. Breathing comfortably. No complaints of chest discomfort, nausea and vomiting. Some confusion overnight. At this point, he does not look to have any distress. He seems to be a touch nonsensical, and is having some degree of hallucinations. He has no insight into this. He is talking to an old man who apparently has already. PHYSICAL EXAMINATION: VITAL SIGNS: Afebrile, pulse 104, blood pressure 172/94, respirations 20, and saturation 98% on room air. GENERAL: The patient is awake and alert, in no apparent distress. LUNGS: Decent air entry. No prolonged expiratory phase appreciated. HEART: Normal rate, regular. ABDOMEN: Soft, nontender, and nondistended. Bowel sounds are positive. MUSCULOSKELETAL: No cyanosis or clubbing. No pitting in the bilateral lower extremities. NEUROLOGIC: Grossly nonfocal. LABORATORY DATA: WBC 15.6 and downtrending, hemoglobin 9.9, stable, and platelets 348,000. Creatinine 3.09, up trending. BUN 48, bicarb 18 and gently up trending. Basic metabolic profile and liver function studies otherwise unremarkable. Heel culture, foot abscess are growing Proteus, which are fairly sensitive. Respiratory culture, and blood cultures x2 are unremarkable. ASSESSMENT: 1. Acute hypoxic and hypercapnic respiratory failure, resolved. 2. Hypoventilation, likely medication effect. 3. Acute kidney injury on chronic kidney disease 3. 4. Hyperkalemia. DISCUSSION AND PLAN: The patient is currently euvolemic. Diuretics will be interrupted. If his p.o. remains poor, he may need some gentle hydration. Moving forward, I do not think there is any room for middle ground. I believe the patient either requires an amputation, or transition over to comfort care only with hospice taking care of in the outpatient setting. At this point, he is not able have that kind of a conversation. I believe hospice is the plan of next of kin as the patient currently does not have the ability to make decisions. He has no further requirements for inpatient Pulmonary/Critical Care opinion, and I will sign off. Please call with additional questions or concerns through time. Job ID: [id number] MTDD
[2019-08-11] MEDS: Tamsulosin HCl 0.4 MG CAP PO SCH (20:41)
[2019-08-11 21:03] LABS: Vancomycin, Trough 27.9 ug/mL
[2019-08-11] MEDS: Vancomycin HCl 750 MG in Sodium Chloride 0.9% 250 ML 250 ML IVPB SCH (22:27)
[2019-08-12] MEDS: Sodium Chloride 0.9% 1,000 ML IV SCH ×2 (04:42→12:53)
[2019-08-12] MEDS: Piperacillin/Tazobactam 2.25 GM in Sodium Chloride 0.9% 100 ML IVPB SCH ×3 (04:43→20:12)
[2019-08-12 04:52] LABS: Anion Gap 18 mmol/L (10-20); BUN (Urea Nitrogen) 41 mg/dL (8.4-25.7); Calc. Creatinine Clearance 35 mL/min (70-130); Calcium 7.7 mg/dL (7.8-10.44); Carbon Dioxide 23 mmol/L (22-29); Chloride 104 mmol/L (98-107); Estimated GFR-MDRD 23; Glucose 299 mg/dL (70-105); Potassium 3.5 mmol/L (3.5-5.1); Sodium 141 mmol/L (136-145)
[2019-08-12] MEDS: HumaLOG 300 UNITS/3 ML VIAL SC PRN ×4 (06:20→20:14)
[2019-08-12 06:46] LABS: Band 1 % (5-11); Eosinophils 1 % (0-10); Hemoglobin 9.6 g/dL (14.0-18.0); Lymphocytes 11 % (21-51); MDiff Complete? YES; Mean Corpuscular HGB CONC 32.2 g/dL (32.0-36.0); Mean Corpuscular Volume 90.1 fL (78.0-98.0); Mean Platelet Volume 8.5 fL (7.4-10.4); Monocytes 4 % (0-10); Neutrophil 83 % (42-75); Platelet Count 374 thou/uL (130-400); RBC Distribution Width 12.8 % (11.5-14.5); White Blood Cell (WBC) Count 12.9 thou/uL (4.8-10.8)
--- NOTE | 2019-08-12 09:16 | RAD ---
CHEST ONE VIEW: HISTORY: Daily follow-up evaluation, on ventilator. COMPARISON: 08/10/2019 FINDINGS: The endotracheal tube and nasogastric tube have been removed. The cardiac silhouette is magnified by projection. There is suggestion of mild increased alveolar and interstitial densities in the left per ihilar region which could be related to volume loss or developing pneumonia. The right lung is clear. No pleural effusion is seen. IMPRESSION: Increased interstitial and patchy alveolar opacity in the left perihilar region, which may be related to atelectasis versus developing pneumonia. followup to resolution is recommended. POS: OFF
[2019-08-12] MEDS: Famotidine 20 MG TAB PO SCH ×2 (09:22→20:13)
[2019-08-12] MEDS: Metoprolol Tartrate 25 MG TAB PO SCH ×2 (09:22→20:13)
[2019-08-12] MEDS: Amlodipine 5 MG TAB PO SCH (09:22)
[2019-08-12] MEDS: Gabapentin 300 MG CAP PO SCH ×3 (09:22→20:12)
[2019-08-12] MEDS: Insulin Glargine 10 UNITS in Pre-Filled Syringe 1 EACH SC SCH (09:23)
[2019-08-12] MEDS: Digoxin 0.125 MG TAB PO SCH (09:24)
[2019-08-12] MEDS: Nicotine 21 MG PATCH TD SCH (09:25)
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
[2019-08-12] MEDS: Vancomycin HCl 500 MG in Sodium Chloride 0.9% 100 ML IVPB SCH (12:47)
[2019-08-12] MEDS: Tamsulosin HCl 0.4 MG CAP PO SCH (20:12)
[2019-08-12] MEDS: diphenhydrAMINE 25 MG CAP PO PRN (20:54)
[2019-08-12] MEDS ORDERED: Vancomycin HCl 750 MG in Sodium Chloride 0.9% 250 ML 250 ML IVPB SCH (22:00)
[2019-08-13] MEDS: Piperacillin/Tazobactam 2.25 GM in Sodium Chloride 0.9% 100 ML IVPB SCH ×3 (04:37→20:56)
[2019-08-13 05:21] LABS: Anion Gap 14 mmol/L (10-20); BUN (Urea Nitrogen) 41 mg/dL (8.4-25.7); Calc. Creatinine Clearance 38 mL/min (70-130); Calcium 7.7 mg/dL (7.8-10.44); Carbon Dioxide 24 mmol/L (22-29); Chloride 103 mmol/L (98-107); Estimated GFR-MDRD 25; Glucose 208 mg/dL (70-105); Potassium 4.1 mmol/L (3.5-5.1); Sodium 137 mmol/L (136-145)
[2019-08-13 05:37] LABS: Band 2 % (5-11); Eosinophils 1 % (0-10); Lymphocytes 9 % (21-51); MDiff Complete? YES; Mean Corpuscular HGB CONC 33.3 g/dL (32.0-36.0); Mean Corpuscular Hemoglobin 30.4 pg (27.0-31.0); Mean Corpuscular Volume 91.2 fL (78.0-98.0); Mean Platelet Volume 8.4 fL (7.4-10.4); Monocytes 5 % (0-10); Neutrophil 83 % (42-75); Platelet Count 373 thou/uL (130-400); RBC Distribution Width 12.6 % (11.5-14.5); Red Blood Cell (RBC) Count 2.97 mill/uL (4.70-6.10); White Blood Cell (WBC) Count 12.4 thou/uL (4.8-10.8)
[2019-08-13] MEDS: HumaLOG 300 UNITS/3 ML VIAL SC PRN ×4 (06:04→20:57)
[2019-08-13] MEDS: Insulin Glargine 10 UNITS in Pre-Filled Syringe 1 EACH SC SCH (09:20)
[2019-08-13] MEDS: Digoxin 0.125 MG TAB PO SCH (09:22)
[2019-08-13] MEDS: Amlodipine 5 MG TAB PO SCH (09:22)
[2019-08-13] MEDS: Metoprolol Tartrate 25 MG TAB PO SCH ×2 (09:23→20:55)
[2019-08-13] MEDS: Sodium Chloride 0.9% 1,000 ML IV SCH (09:23)
[2019-08-13] MEDS: Gabapentin 300 MG CAP PO SCH ×3 (09:23→20:56)
[2019-08-13] MEDS: Famotidine 20 MG TAB PO SCH ×2 (09:24→20:55)
[2019-08-13] MEDS: Nicotine 21 MG PATCH TD SCH (09:55)
--- NOTE | 2019-08-13 10:08 | PDOC.HOSPP ---
- Subjective Encounter Date: 08/13/19 Encounter Time: 10:00 Subjective: f/u for L foot ulcer/osteomyelitis with Proteus spp s/p local debridement. Pt considering amputation option for definitive tx. - Objective Vital Signs & Weight: Vital Signs (12 hours) Pulse Resp BP 08/13/19 09:22 90 133/78 08/13/19 07:42 90 20 Weight Admit Weight 173 lb 3 oz Weight 195 lb 1.6 oz Most Recent Monitor Data Heart Rate from ECG 99 NIBP 137/74 NIBP BP-Mean 95 Respiration from ECG 26 SpO2 97 I&O: 08/12/19 08/13/19 08/14/19 06:59 06:59 06:59 Intake Total 2742 4420 Balance 2742 4420 Result Diagrams: 08/13/19 04:36 08/13/19 04:36 Additional Labs: Accuchecks 08/12/19 08/12/19 08/12/19 20:00 16:57 11:14 POC Glucose 243 H 342 H 246 H Microbiology 08/09/19 19:15 Sputum Respiratory Culture - Final 08/03/19 21:09 Venous blood - Left Arm Blood Culture - Final NO GROWTH IN 5 DAYS 08/03/19 21:05 Venous blood - Right Hand Blood Culture - Final NO GROWTH IN 5 DAYS 08/08/19 11:36 Foot - Abscess Bacterial Culture - Preliminary 08/08/19 11:36 Foot - Abscess Anaerobic Culture - Preliminary Proteus penneri Proteus mirabilis 08/08/19 11:31 Heel - Ulcer Bacterial Culture - Preliminary 08/08/19 11:31 Heel - Ulcer Anaerobic Culture - Preliminary Proteus penneri 08/08/19 11:26 Heel - Left Bacterial Culture - Preliminary 08/08/19 11:26 Heel - Left Anaerobic Culture - Preliminary Proteus mirabilis Laboratory Tests 08/07/19 08/09/19 08/09/19 05:02 04:54 05:49 WBC 15.8 H 30.0 H Neutrophils % (Manual) 88 H 92 H Creatinine 2.53 H 08/09/19 08/10/19 08/10/19 13:53 03:05 03:05 WBC 17.8 H Neutrophils % (Manual) 91 H Creatinine 2.62 H 2.69 H 08/11/19 08/11/19 08/12/19 03:48 03:48 04:20 WBC 15.6 H Neutrophils % (Manual) 89 H 83 H Creatinine 3.09 H Radiology Reviewed by me: Yes (PCXR - L perihilar opacities) Hospitalist ROS - Medication Medications: Active Medications Generic Name Dose Route Start Last Admin Trade Name Freq PRN Reason Stop Dose Admin Acetaminophen 1,000 mg 08/08/19 12:07 08/12/19 09:22 Tylenol PO 1,000 mg Q6H PRN Administration Moderate to Severe Pain (6-10) Albuterol/Ipratropium 3 ml 08/09/19 07:00 08/13/19 07:42 Duoneb NEB 3 ml [id number] RONI Administration Amlodipine Besylate 5 mg 08/05/19 09:00 08/13/19 09:22 Norvasc PO 5 mg DAILY RONI Administration Clonidine 0.2 mg 08/04/19 14:00 08/11/19 14:15 [id number] TD 0.2 mg Q7D RONI Administration Digoxin 0.125 mg 08/04/19 09:00 08/13/19 09:22 Lanoxin PO 0.125 mg DAILY RONI Administration Diphenhydramine HCl 25 mg 08/04/19 05:18 08/12/19 20:54 Benadryl PO 25 mg Q4H PRN Administration Itching Famotidine 40 mg 08/04/19 21:00 08/13/19 09:24 Pepcid PO 40 mg BID ORNI Administration Fentanyl 25 mcg 08/11/19 14:00 08/11/19 14:52 Duragesic TD Not Given Q3D RONI Gabapentin 300 mg 08/08/19 15:00 08/13/19 09:23 Neurontin PO 300 mg TID RONI Administration Guaifenesin/Dextromethorphan 15 ml 08/04/19 05:16 08/08/19 22:32 Robitussin Dm PO 15 ml Q4H PRN Administration Cough Piperacillin Sod/Tazobactam 100 mls @ 200 mls/hr 08/04/19 05:00 08/13/19 04: 37 Sod 2.25 gm/ Sodium Chloride IVPB 100 mls 0500,1300,2100 RONI Administration Insulin Glargine 10 units/ 0.1 mls @ 0 mls/hr 08/09/19 09:00 08/13/19 09:20 Miscellaneous Medication SC 0.1 mls QAM RONI Administration Vancomycin HCl 500 mg/ Sodium 100 mls @ 100 mls/hr 08/12/19 12:00 08/12/19 12 :47 Chloride IVPB 100 mls 1200 RONI Administration Sodium Chloride 1,000 mls @ 50 mls/hr 08/12/19 12:30 08/13/19 09:23 Normal Saline 0.9% IV Not Given .Q20H RONI Insulin Human Lispro 0 units 08/04/19 12:33 08/13/19 06:04 Humalog SC 4 unit .MODERATE SLIDING SC PRN Administration Moderate Correctional Scale Insulin Human Lispro 0 units 08/04/19 12:33 08/12/19 20:14 Humalog SC 2 units .BEDTIME SLIDING SC PRN Administration Bedtime Correctional Scale Lorazepam 0.5 mg 08/10/19 20:36 08/11/19 06:29 Ativan SLOW IVP 0.5 mg Q6H PRN Administration Anxiety/Agitation Metoprolol Tartrate 25 mg 08/04/19 09:00 08/13/19 09:23 Lopressor PO 25 mg BID RONI Administration Nicotine 21 mg 08/11/19 09:00 08/13/19 09:55 Nicoderm Patch TD 21 mg DAILY RONI Administration Sodium Chloride 10 ml 08/04/19 21:00 08/13/19 09:24 Flush - Normal Saline IVF Not Given Q12HR RONI Sodium Chloride 10 ml 08/04/19 10:17 08/11/19 06:27 Flush - Normal Saline IVF 10 ml PRN PRN Administration Saline Flush Tamsulosin HCl 0.4 mg 08/04/19 21:00 08/12/19 20:12 Flomax PO 0.4 mg HS RONI Administration - Exam General Appearance: ill appearing General - other findings: somnolent Eye: PERRL, anicteric sclera ENT: normocephalic atraumatic, no oropharyngeal lesions Neck: supple, symmetric, no JVD, no thyromegaly Heart: RRR, no murmur, no gallops, no rubs Respiratory: CTAB, no wheezes, no rales, no ronchi, normal chest expansion Gastrointestinal: soft, non-tender, non-distended, normal bowel sounds, no palpable masses Extremities - other findings: L foot with large wound of the heel, dressings in place Neurological: cranial nerve grossly intact Musculoskeletal: generalized weakness Psychiatric: oriented to person, somnolent, lethargic Hosp A/P (1) Foot ulcer due to secondary DM Code(s): E13.621 - OTHER SPECIFIED DIABETES MELLITUS WITH FOOT ULCER; L97.509 - NON-PRESSURE CHRONIC ULCER OTH PRT UNSP FOOT W UNSP SEVERITY Status: Acute Plan: Considering amputation as viable option in the next 24h, continue local care, continue Zosyn/Vancomycin (2) Acute renal failure superimposed on stage 4 chronic kidney disease Code(s): N17.9 - ACUTE KIDNEY FAILURE, UNSPECIFIED; N18.4 - CHRONIC KIDNEY DISEASE, STAGE 4 (SEVERE) Status: Acute Plan: Mild improvement, avoid nephrotoxic agents and limit contrast, serial monitoring (3) Acute hypercapnic respiratory failure Code(s): J96.02 - ACUTE RESPIRATORY FAILURE WITH HYPERCAPNIA Status: Acute (4) Ataxia Code(s): R27.0 - ATAXIA, UNSPECIFIED Status: Chronic (5) Physical deconditioning Code(s): R53.81 - OTHER MALAISE Status: Chronic - Plan continue antibiotics, mental health social worker, respiratory therapy Consults: Palliative Care IVF's @ 50ml/h Avoid nephrotoxic agents and limit contrast Continue Zosyn/Vancomycin WCT for local care of ulcers Gen Surgery for ampuation option Palliative care, ? Hospice Continue pain control with Fentanyl patch AM lab: BMP, CBC
[2019-08-13] MEDS: Vancomycin HCl 500 MG in Sodium Chloride 0.9% 100 ML IVPB SCH (13:00)
--- NOTE | 2019-08-13 18:00 | PRG ---
DATE OF SERVICE: 08/13/2019 SUBJECTIVE: The patient is feeling "one million bugs." No chest pain. No abdominal pain. No diarrhea. Voiding in the diaper. OBJECTIVE: VITAL SIGNS: With normal temperature. LUNGS: Symmetric. Clear breath sounds. HEART: S1 and S2, regular rate. ABDOMEN: Soft, not distended or tender. No ascites. EXTREMITIES: Left foot with dressing and negative pressure dressing as well. LABORATORY DATA: White cell count 12.4, hemoglobin 9.0, platelets 373. Sodium 137, creatinine 2.63, which has improved. Microbiology with Bacteroides . ASSESSMENT AND DISCUSSION: Type 2 diabetes, peripheral vascular disease with pressure ulcer, necrosis of the left heel, status post debridement and deep space involvement in the hindfoot area. The patient declined amputation. We will switch him to oral Cipro and Flagyl whenever he is ready for discharge planning. Eventually will require amputation most likely. I do not think he is a candidate for angiogram or revascularization since he would throw him into end-stage renal disease and dialysis. Job ID: [id number] MTDD
[2019-08-13] MEDS: Tamsulosin HCl 0.4 MG CAP PO SCH (20:55)
[2019-08-14] MEDS: Sodium Chloride 0.9% 1,000 ML IV SCH (02:14)
[2019-08-14] MEDS ORDERED: cloNIDine 0.2mg/24 Hour PATCH TD SCH (04:00)
[2019-08-14] MEDS: Piperacillin/Tazobactam 2.25 GM in Sodium Chloride 0.9% 100 ML IVPB SCH ×2 (04:32→12:05)
[2019-08-14 06:17] LABS: Anion Gap 15 mmol/L (10-20); BUN (Urea Nitrogen) 44 mg/dL (8.4-25.7); Calc. Creatinine Clearance 35 mL/min (70-130); Calcium 7.5 mg/dL (7.8-10.44); Carbon Dioxide 22 mmol/L (22-29); Chloride 103 mmol/L (98-107); Estimated GFR-MDRD 22; Glucose 291 mg/dL (70-105); Potassium 4.2 mmol/L (3.5-5.1); Sodium 136 mmol/L (136-145)
[2019-08-14] MEDS: HumaLOG 300 UNITS/3 ML VIAL SC PRN ×3 (06:38→18:11)
[2019-08-14 06:41] LABS: Band 6 % (5-11); Eosinophils 3 % (0-10); Hemoglobin 8.8 g/dL (14.0-18.0); Lymphocytes 5 % (21-51); MDiff Complete? YES; Mean Corpuscular HGB CONC 33.1 g/dL (32.0-36.0); Mean Corpuscular Hemoglobin 29.7 pg (27.0-31.0); Mean Corpuscular Volume 89.7 fL (78.0-98.0); Mean Platelet Volume 8.7 fL (7.4-10.4); Monocytes 5 % (0-10); Myelocyte 1 % (0-0); Neutrophil 80 % (42-75); Platelet Count 382 thou/uL (130-400); RBC Distribution Width 12.6 % (11.5-14.5); Red Blood Cell (RBC) Count 2.95 mill/uL (4.70-6.10)
--- NOTE | 2019-08-14 08:30 | PDOC.HOSPP ---
- Subjective Encounter Date: 08/14/19 Encounter Time: 08:10 Subjective: f/u for L foot necrotic ulcer with PVD on current Zosyn/Vancomycin. States feeling better overall and now considering amputation. Wants to try a different diet instead of puree texture. - Objective Vital Signs & Weight: Vital Signs (12 hours) Temp Pulse Resp BP Pulse Ox 08/14/19 08:00 97.9 F 89 131/86 99 08/14/19 06:56 80 16 08/14/19 01:56 86 16 95 Weight Admit Weight 173 lb 3 oz Weight 203 lb Most Recent Monitor Data Heart Rate from ECG 99 NIBP 137/74 NIBP BP-Mean 95 Respiration from ECG 26 SpO2 97 I&O: 08/13/19 08/14/19 08/15/19 06:59 06:59 06:59 Intake Total 4420 1800 Balance 4420 1800 Result Diagrams: 08/14/19 05:53 08/14/19 05:53 Additional Labs: Accuchecks 08/13/19 08/13/19 08/13/19 20:28 15:37 11:50 POC Glucose 327 H 234 H 203 H Microbiology 08/09/19 19:15 Sputum Respiratory Culture - Final 08/03/19 21:09 Venous blood - Left Arm Blood Culture - Final NO GROWTH IN 5 DAYS 08/03/19 21:05 Venous blood - Right Hand Blood Culture - Final NO GROWTH IN 5 DAYS 08/08/19 11:36 Foot - Abscess Bacterial Culture - Preliminary 08/08/19 11:36 Foot - Abscess Anaerobic Culture - Preliminary Proteus penneri Proteus mirabilis 08/08/19 11:31 Heel - Ulcer Bacterial Culture - Preliminary 08/08/19 11:31 Heel - Ulcer Anaerobic Culture - Preliminary Proteus penneri 08/08/19 11:26 Heel - Left Bacterial Culture - Preliminary 08/08/19 11:26 Heel - Left Anaerobic Culture - Preliminary Proteus mirabilis Laboratory Tests 08/07/19 08/09/19 08/09/19 05:02 04:54 05:49 WBC 15.8 H 30.0 H Neutrophils % (Manual) 88 H 92 H Creatinine 2.53 H 08/09/19 08/10/19 08/10/19 13:53 03:05 03:05 WBC 17.8 H Neutrophils % (Manual) 91 H Creatinine 2.62 H 2.69 H 08/11/19 08/11/19 08/12/19 03:48 03:48 04:20 WBC 15.6 H Neutrophils % (Manual) 89 H 83 H Creatinine 3.09 H Hospitalist ROS - Medication Medications: Active Medications Generic Name Dose Route Start Last Admin Trade Name Freq PRN Reason Stop Dose Admin Acetaminophen 1,000 mg 08/08/19 12:07 08/12/19 09:22 Tylenol PO 1,000 mg Q6H PRN Administration Moderate to Severe Pain (6-10) Albuterol/Ipratropium 3 ml 08/09/19 07:00 08/14/19 06:56 Duoneb NEB 3 ml [id number] RONI Administration Amlodipine Besylate 5 mg 08/05/19 09:00 08/13/19 09:22 Norvasc PO 5 mg DAILY RONI Administration Clonidine 0.2 mg 08/14/19 04:00 08/14/19 04:32 [id number]-[id number]-0 TD 0.2 mg Q7D@0400 RONI Administration Digoxin 0.125 mg 08/04/19 09:00 08/13/19 09:22 Lanoxin PO 0.125 mg DAILY RONI Administration Diphenhydramine HCl 25 mg 08/04/19 05:18 08/12/19 20:54 Benadryl PO 25 mg Q4H PRN Administration Itching Famotidine 40 mg 08/04/19 21:00 08/13/19 20:55 Pepcid PO 40 mg BID RONI Administration Fentanyl 25 mcg 08/11/19 14:00 08/11/19 14:52 Duragesic TD Not Given Q3D RONI Gabapentin 300 mg 08/08/19 15:00 08/13/19 20:56 Neurontin PO 300 mg TID RONI Administration Guaifenesin/Dextromethorphan 15 ml 08/04/19 05:16 08/08/19 22:32 Robitussin Dm PO 15 ml Q4H PRN Administration Cough Piperacillin Sod/Tazobactam 100 mls @ 200 mls/hr 08/04/19 05:00 08/14/19 04: 32 Sod 2.25 gm/ Sodium Chloride IVPB 100 mls 0500,1300,2100 RONI Administration Insulin Glargine 10 units/ 0.1 mls @ 0 mls/hr 08/09/19 09:00 08/13/19 09:20 Miscellaneous Medication SC 0.1 mls QAM RONI Administration Vancomycin HCl 500 mg/ Sodium 100 mls @ 100 mls/hr 08/12/19 12:00 08/13/19 13 :00 Chloride IVPB 100 mls 1200 RONI Administration Sodium Chloride 1,000 mls @ 50 mls/hr 08/12/19 12:30 08/14/19 02:14 Normal Saline 0.9% IV 1,000 mls .Q20H RONI Administration Insulin Human Lispro 0 units 08/04/19 12:33 08/14/19 06:38 Humalog SC 8 unit .MODERATE SLIDING SC PRN Administration Moderate Correctional Scale Insulin Human Lispro 0 units 08/04/19 12:33 08/13/19 20:57 Humalog SC 4 units .BEDTIME SLIDING SC PRN Administration Bedtime Correctional Scale Lorazepam 0.5 mg 08/10/19 20:36 08/11/19 06:29 Ativan SLOW IVP 0.5 mg Q6H PRN Administration Anxiety/Agitation Metoprolol Tartrate 25 mg 08/04/19 09:00 08/13/19 20:55 Lopressor PO 25 mg BID RONI Administration Nicotine 21 mg 08/11/19 09:00 08/13/19 09:55 Nicoderm Patch TD 21 mg DAILY RONI Administration Sodium Chloride 10 ml 08/04/19 21:00 08/13/19 20:56 Flush - Normal Saline IVF 10 ml Q12HR RONI Administration Sodium Chloride 10 ml 08/04/19 10:17 08/11/19 06:27 Flush - Normal Saline IVF 10 ml PRN PRN Administration Saline Flush Tamsulosin HCl 0.4 mg 08/04/19 21:00 08/13/19 20:55 Flomax PO 0.4 mg HS RONI Administration - Exam General Appearance: NAD, awake alert Eye: PERRL, anicteric sclera ENT: normocephalic atraumatic, no oropharyngeal lesions Neck: supple, symmetric, no JVD, no thyromegaly Heart: RRR, no murmur, no gallops, no rubs Respiratory: CTAB, no wheezes, no rales, no ronchi, normal chest expansion Gastrointestinal: soft, non-tender, non-distended, normal bowel sounds, no palpable masses Extremities - other findings: L heel necrotic wound, exposed calcaneus Neurological: cranial nerve grossly intact, no new deficit Musculoskeletal: normal tone, generalized weakness Psychiatric: normal affect, A&O x 3 Hosp A/P (1) Foot ulcer due to secondary DM Code(s): E13.621 - OTHER SPECIFIED DIABETES MELLITUS WITH FOOT ULCER; L97.509 - NON-PRESSURE CHRONIC ULCER OTH PRT UNSP FOOT W UNSP SEVERITY Status: Acute Plan: Extensive necrosis and tissue loss with exposed calcaneus, Gen surgery for amputation options as pt amenable for surgical course (2) Acute renal failure superimposed on stage 4 chronic kidney disease Code(s): N17.9 - ACUTE KIDNEY FAILURE, UNSPECIFIED; N18.4 - CHRONIC KIDNEY DISEASE, STAGE 4 (SEVERE) Status: Acute Plan: Avoid nephrotoxic meds and limit contrast exposure (3) Acute hypercapnic respiratory failure Code(s): J96.02 - ACUTE RESPIRATORY FAILURE WITH HYPERCAPNIA Status: Acute Plan: Resolved, continue supportive mgmt (4) Ataxia Code(s): R27.0 - ATAXIA, UNSPECIFIED Status: Chronic (5) Physical deconditioning Code(s): R53.81 - OTHER MALAISE Status: Chronic Plan: PT for mobilization, likely will need Rehab/SNF termite treater helper (6) Insulin dependent diabetes mellitus Code(s): E11.9 - TYPE 2 DIABETES MELLITUS WITHOUT COMPLICATIONS; Z79.4 - SENIOR LIVING (CURRENT) USE OF INSULIN Status: Chronic Plan: Continue Lantus, ISS, serial accuchecks, ADA - Plan continue antibiotics, PT/OT, child welfare social worker, speech therapy, out of bed/ ambulate Consults: Palliative Care Stable overall IVF's @ 50ml/h Avoid nephrotoxic agents and limit contrast Continue Zosyn/Vancomycin WCT for local care of ulcers Gen Surgery for ampuation option Palliative care, ? Hospice Continue pain control with Fentanyl patch AM lab: BMP, CBC
[2019-08-14] MEDS: Nicotine 21 MG PATCH TD SCH ×2 (09:30→11:50)
[2019-08-14] MEDS: Insulin Glargine 10 UNITS in Pre-Filled Syringe 1 EACH SC SCH (10:00)
[2019-08-14] MEDS: Famotidine 20 MG TAB PO SCH ×2 (10:00→20:36)
[2019-08-14] MEDS: Gabapentin 300 MG CAP PO SCH ×3 (10:00→20:36)
[2019-08-14] MEDS: Amlodipine 5 MG TAB PO SCH (10:00)
[2019-08-14] MEDS: Metoprolol Tartrate 25 MG TAB PO SCH ×2 (10:00→20:36)
[2019-08-14] MEDS: Digoxin 0.125 MG TAB PO SCH (10:00)
--- NOTE | 2019-08-14 12:45 | PRG ---
DATE OF SERVICE: 08/14/2019 Mr. Green has over the weekend reconsidered and desires below-knee amputation. He has talked this over with his common-law as well as his brbth-sn-wgmssduv sister. He desires want to go to rehab postop. how many people who goes to rehab have been successful. He has been rehabbing himself for different hospital situations and favors that. Risks and benefits of the procedure were discussed. He consents. I have told him he will need to engage with therapy on a routine basis to be successful postoperatively. He understands risks of infection, bleeding, reoperation, and consents. We will plan left below-knee amputation tomorrow. We will type and cross 2 units as his hemoglobin is 8.8. We will have that available for perioperative use. Expect that he could go to rehab a day postoperatively on Wednesday, day after tomorrow and rehab can remove his dressing, begin daily washing the stump with soap and water and applying antibiotic ointment, Telfa, and a stump cancer genetic counselor. He should keep a pillow or blanket under his BKA stump, knee extension and to prevent contracture. Job ID: [id number]
[2019-08-14] MEDS: Vancomycin HCl 500 MG in Sodium Chloride 0.9% 100 ML IVPB SCH (12:50)
[2019-08-14] MEDS: Tamsulosin HCl 0.4 MG CAP PO SCH (20:36)
[2019-08-14] MEDS ORDERED: Enoxaparin Sodium 40 MG/0.4 ML SYRINGE SC SCH (21:00)
[2019-08-14] MEDS: Guaifenesin DM 100-10/5 ML UDCUP PO PRN (22:01)
[2019-08-15] MEDS: Sodium Chloride 0.9% 1,000 ML IV SCH ×2 (01:53→05:26)
[2019-08-15 05:27] LABS: Eosinophils 7 % (0-10); Hemoglobin 9.3 g/dL (14.0-18.0); Lymphocytes 12 % (21-51); MDiff Complete? YES; Mean Corpuscular HGB CONC 33.1 g/dL (32.0-36.0); Mean Corpuscular Hemoglobin 29.7 pg (27.0-31.0); Mean Corpuscular Volume 89.9 fL (78.0-98.0); Mean Platelet Volume 8.5 fL (7.4-10.4); Monocytes 2 % (0-10); Neutrophil 79 % (42-75); Platelet Count 362 thou/uL (130-400); RBC Distribution Width 12.9 % (11.5-14.5); Red Blood Cell (RBC) Count 3.12 mill/uL (4.70-6.10)
[2019-08-15 05:30] LABS: Anion Gap 14 mmol/L (10-20); BUN (Urea Nitrogen) 48 mg/dL (8.4-25.7); Calc. Creatinine Clearance 36 mL/min (70-130); Calcium 7.9 mg/dL (7.8-10.44); Carbon Dioxide 21 mmol/L (22-29); Chloride 104 mmol/L (98-107); Estimated GFR-MDRD 22; Glucose 171 mg/dL (70-105); Potassium 4.4 mmol/L (3.5-5.1); Sodium 135 mmol/L (136-145)
[2019-08-15] MEDS: Digoxin 0.125 MG TAB PO SCH (08:46)
[2019-08-15] MEDS: Amlodipine 5 MG TAB PO SCH (08:46)
[2019-08-15] MEDS: Famotidine 20 MG TAB PO SCH ×2 (08:46→20:33)
[2019-08-15] MEDS: Gabapentin 300 MG CAP PO SCH ×4 (08:46→20:33)
[2019-08-15] MEDS: Metoprolol Tartrate 25 MG TAB PO SCH ×2 (08:47→20:33)
[2019-08-15] MEDS: Insulin Glargine 10 UNITS in Pre-Filled Syringe 1 EACH SC SCH (08:47)
[2019-08-15] MEDS: Nicotine 21 MG PATCH TD SCH (08:51)
[2019-08-15] MEDS ORDERED: PROPOFOL 200 MG/20 ML VIAL ONE (09:50)
[2019-08-15] MEDS ORDERED: Bupivacaine HCl 0.5%/Epinephrine 1:200,000/PF 30 ml Vial ONE (09:55)
[2019-08-15] MEDS ORDERED: Fentanyl 100 MCG/2 ML VIAL ONE ×2 (10:51→11:06)
[2019-08-15] MEDS ORDERED: Midazolam HCl 2 mg/2 ml Vial ONE (10:51)
[2019-08-15] MEDS: Vancomycin HCl 500 MG in Sodium Chloride 0.9% 100 ML IVPB SCH (12:09)
[2019-08-15] MEDS ORDERED: traMADol HCl 50 MG TAB PO PRN ×2 (12:55)
--- NOTE | 2019-08-15 13:23 | PDOC.HOSPP ---
- Subjective Encounter Date: 08/15/19 Encounter Time: 13:20 Subjective: f/u s/p L BKA today. No new issues noted and feels groggy post-op. Planning for SNF/Rehab in the next 24h. - Objective Vital Signs & Weight: Vital Signs (12 hours) Temp Pulse Resp BP Pulse Ox 08/15/19 08:46 89 08/15/19 08:04 89 16 93 L 08/15/19 07:07 97.4 F L 67 20 156/87 H 91 L 08/15/19 01:57 81 16 92 L Weight Admit Weight 173 lb 3 oz Weight 203 lb Most Recent Monitor Data Heart Rate from ECG 99 NIBP 137/74 NIBP BP-Mean 95 Respiration from ECG 26 SpO2 97 I&O: 08/14/19 08/15/19 08/16/19 06:59 06:59 06:59 Intake Total 2900 Balance 2900 Result Diagrams: 08/15/19 04:40 08/15/19 04:40 Additional Labs: Accuchecks 08/15/19 08/14/19 08/14/19 05:31 20:43 18:02 POC Glucose 185 H 193 H 196 H Microbiology 08/09/19 19:15 Sputum Respiratory Culture - Final 08/03/19 21:09 Venous blood - Left Arm Blood Culture - Final NO GROWTH IN 5 DAYS 08/03/19 21:05 Venous blood - Right Hand Blood Culture - Final NO GROWTH IN 5 DAYS 08/08/19 11:36 Foot - Abscess Bacterial Culture - Preliminary 08/08/19 11:36 Foot - Abscess Anaerobic Culture - Preliminary Proteus penneri Proteus mirabilis 08/08/19 11:31 Heel - Ulcer Bacterial Culture - Preliminary 08/08/19 11:31 Heel - Ulcer Anaerobic Culture - Preliminary Proteus penneri 08/08/19 11:26 Heel - Left Bacterial Culture - Preliminary 08/08/19 11:26 Heel - Left Anaerobic Culture - Preliminary Proteus mirabilis Laboratory Tests 08/07/19 08/09/19 08/09/19 05:02 04:54 05:49 WBC 15.8 H 30.0 H Neutrophils % (Manual) 88 H 92 H Creatinine 2.53 H 08/09/19 08/10/19 08/10/19 13:53 03:05 03:05 WBC 17.8 H Neutrophils % (Manual) 91 H Creatinine 2.62 H 2.69 H 08/11/19 08/11/19 08/12/19 03:48 03:48 04:20 WBC 15.6 H Neutrophils % (Manual) 89 H 83 H Creatinine 3.09 H Hospitalist ROS - Medication Medications: Active Medications Generic Name Dose Route Start Last Admin Trade Name Freq PRN Reason Stop Dose Admin Acetaminophen 1,000 mg 08/08/19 12:07 08/12/19 09:22 Tylenol PO 1,000 mg Q6H PRN Administration Moderate to Severe Pain (6-10) Albuterol/Ipratropium 3 ml 08/09/19 07:00 08/15/19 08:04 Duoneb NEB 3 ml [id number] RONI Administration Amlodipine Besylate 5 mg 08/05/19 09:00 08/15/19 08:46 Norvasc PO 5 mg DAILY RONI Administration Clonidine 0.2 mg 08/14/19 04:00 08/14/19 04:32 [id number] TD 0.2 mg Q7D@0400 RONI Administration Digoxin 0.125 mg 08/04/19 09:00 08/15/19 08:46 Lanoxin PO 0.125 mg DAILY RONI Administration Diphenhydramine HCl 25 mg 08/04/19 05:18 08/12/19 20:54 Benadryl PO 25 mg Q4H PRN Administration Itching Famotidine 40 mg 08/04/19 21:00 08/15/19 08:46 Pepcid PO 40 mg BID RONI Administration Fentanyl 25 mcg 08/11/19 14:00 08/14/19 13:45 Duragesic TD 25 mcg Q3D RONI Administration Gabapentin 300 mg 08/08/19 15:00 08/15/19 08:46 Neurontin PO 300 mg TID RONI Administration Guaifenesin/Dextromethorphan 15 ml 08/04/19 05:16 08/14/19 22:01 Robitussin Dm PO 15 ml Q4H PRN Administration Cough Insulin Glargine 10 units/ 0.1 mls @ 0 mls/hr 08/09/19 09:00 08/15/19 08:47 Miscellaneous Medication SC 0.1 mls QAM RONI Administration Vancomycin HCl 500 mg/ Sodium 100 mls @ 100 mls/hr 08/12/19 12:00 08/15/19 12 :09 Chloride IVPB 08/16/19 08:00 Not Given 1200 RONI Insulin Human Lispro 0 units 08/04/19 12:33 08/14/19 18:11 Humalog SC 2 unit .MODERATE SLIDING SC PRN Administration Moderate Correctional Scale Insulin Human Lispro 0 units 08/04/19 12:33 08/13/19 20:57 Humalog SC 4 units .BEDTIME SLIDING SC PRN Administration Bedtime Correctional Scale Lorazepam 0.5 mg 08/10/19 20:36 08/11/19 06:29 Ativan SLOW IVP 0.5 mg Q6H PRN Administration Anxiety/Agitation Metoprolol Tartrate 25 mg 08/04/19 09:00 08/15/19 08:47 Lopressor PO 25 mg BID RONI Administration Nicotine 21 mg 08/11/19 09:00 08/15/19 08:51 Nicoderm Patch TD 21 mg DAILY RONI Administration Sodium Chloride 10 ml 08/04/19 21:00 08/15/19 08:50 Flush - Normal Saline IVF 10 ml Q12HR RONI Administration Sodium Chloride 10 ml 08/04/19 10:17 08/11/19 06:27 Flush - Normal Saline IVF 10 ml PRN PRN Administration Saline Flush Tamsulosin HCl 0.4 mg 08/04/19 21:00 08/14/19 20:36 Flomax PO 0.4 mg HS RONI Administration - Exam General - other findings: sedate but opens eyes to name Eye: PERRL, anicteric sclera ENT: normocephalic atraumatic, no oropharyngeal lesions Neck: supple, symmetric, no JVD, no thyromegaly Heart: RRR, no murmur, no gallops, no rubs Heart - other findings: S1, S2 Respiratory: CTAB, no wheezes, no rales, no ronchi, normal chest expansion Gastrointestinal: soft, non-tender, non-distended, normal bowel sounds Extremities: no cyanosis Extremities - other findings: L BKA with dressing in place Skin: normal turgor Neurological: cranial nerve grossly intact, no new deficit Musculoskeletal: normal tone, generalized weakness Psychiatric: oriented to person, oriented to place, somnolent Hosp A/P (1) Foot ulcer due to secondary DM Code(s): E13.621 - OTHER SPECIFIED DIABETES MELLITUS WITH FOOT ULCER; L97.509 - NON-PRESSURE CHRONIC ULCER OTH PRT UNSP FOOT W UNSP SEVERITY Status: Acute Plan: s/p L BKA 08/15/19, local WCT, pain control, PT/OT (2) Acute renal failure superimposed on stage 4 chronic kidney disease Code(s): N17.9 - ACUTE KIDNEY FAILURE, UNSPECIFIED; N18.4 - CHRONIC KIDNEY DISEASE, STAGE 4 (SEVERE) Status: Acute Plan: Avoid nephrotoxic meds and limit contrast exposure (3) Acute hypercapnic respiratory failure Code(s): J96.02 - ACUTE RESPIRATORY FAILURE WITH HYPERCAPNIA Status: Acute Plan: Resolved, O2 PRN (4) Ataxia Code(s): R27.0 - ATAXIA, UNSPECIFIED Status: Chronic (5) Physical deconditioning Code(s): R53.81 - OTHER MALAISE Status: Chronic (6) Insulin dependent diabetes mellitus Code(s): E11.9 - TYPE 2 DIABETES MELLITUS WITHOUT COMPLICATIONS; Z79.4 - PROCUREMENT TECHNICIAN (CURRENT) USE OF INSULIN Status: Chronic - Plan continue antibiotics, PT/OT, social organization professor, out of bed/ambulate Stable overall Avoid nephrotoxic agents and limit contrast Continue Vancomycin WCT for local care of ulcers Gen Surgery assistance appreciated Palliative care Continue pain control with Fentanyl patch Plan for inpt rehab/SNF in next 24h AM lab: BMP, CBC
--- NOTE | 2019-08-15 13:56 | OP ---
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 The patient was refractory to amputation initially, now agrees. 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 The patient was refractory to amputation initially, now agrees. PROCEDURE PERFORMED: Left hjieu-fee-xssi amputation. ANESTHESIA: Intravenous sedation, regional. DESCRIPTION OF PROCEDURE: The patient was taken to the operating room, where under regional anesthesia and sedation, left lower extremity was prepared with ChloraPrep and draped in routine fashion. Incision was made for left qvkzx-yux-awlw amputation with a long posterior flap, carried down through skin, subcutaneous tissue, fascia, dividing muscular bundles with cautery and dividing vascular bundles between clamps, ligating with 2-0 silk ties. Tibia cleared off periosteum proximally, transected with a Gigli saw, beveling the anterior edge cephalad, smoothing it with a rasp. Fibula cut an inch above the cut edge of the tibia with a bone cutter. Wound irrigated. Hemostasis obtained with cautery and 2-0 Vicryl. Good hemostasis noted. Fascia approximated with 2-0 Vicryl suture, skin with leni. Sterile dressing applied. The patient tolerated the procedure well. Job ID: [id number]
--- NOTE | 2019-08-15 15:35 | PDOC.PALPN ---
Palliative Progress Note - Subjective Awake, alert, on phone with Loyda who he made his MPOA. Post amputation, finishing lunch. - Objective Vital Signs: Vital Signs - Most Recent Temp Pulse Resp BP Pulse Ox 97.4 F L 81 16 156/87 H 93 L 08/15/19 07:07 08/15/19 13:35 08/15/19 13:35 08/15/19 07:07 08/15/19 13:35 - Physical Exam Constitutional: ill appearing HEENT: EOMI, moist MMs, sclera anicteric Respiratory: no wheezing, unlabored breathing Cardiovascular: RRR Genitourinary: brasher catheter Musculoskeletal: no cyanosis, no clubbing Deviation from normal: amputtion to left lower extremity, bka Neurology: no focal deficits Skin: cap refill <2 seconds, fragile Psychiatric: A&O x 3, normal mood - Assessment (1) Palliative care encounter Code(s): Z51.5 - ENCOUNTER FOR PALLIATIVE CARE Current Visit: Yes Status: Acute (2) Physical deconditioning Code(s): R53.81 - OTHER MALAISE Current Visit: Yes Status: Chronic (3) Decubitus skin ulcer Code(s): L89.90 - PRESSURE ULCER OF UNSPECIFIED SITE, UNSPECIFIED STAGE Current Visit: Yes Status: Acute (4) Sepsis Code(s): A41.9 - SEPSIS, UNSPECIFIED ORGANISM Current Visit: Yes Status: Acute (5) CHF (congestive heart failure) Code(s): I50.9 - HEART FAILURE, UNSPECIFIED Current Visit: No Status: Chronic - Plan Plan: Denies pain related to amputation. Transitioned MPOA to his caregiver and who he lives with, Loyda. Also transitioned back to full resuscitation measures. Hopeful to transition to rehab and gain strength to return to the home setting. Also refer to Palliative Care RN notes in note section. [40] minutes spent on this encounter with >50% of the time in counseling and coordination of care. - ROS Constitutional: alert, weakness ENT: other (denies difficulity swallowing, congestion) Respiratory: other (negative for shortness of breath, cough) Cardiology: other (negative for chest pain) Musculoskeletal: arthritis/arthralgias Psychological: irritable
[2019-08-15] MEDS: HumaLOG 300 UNITS/3 ML VIAL SC PRN (20:33)
[2019-08-15] MEDS: Tamsulosin HCl 0.4 MG CAP PO SCH (20:33)
[2019-08-15] MEDS ORDERED: Enoxaparin Sodium 30 MG/0.3 ML SYRINGE SC SCH (21:00)
[2019-08-16 06:18] LABS: Anion Gap 15 mmol/L (10-20); BUN (Urea Nitrogen) 46 mg/dL (8.4-25.7); Calc. Creatinine Clearance 38 mL/min (70-130); Calcium 8.2 mg/dL (7.8-10.44); Carbon Dioxide 23 mmol/L (22-29); Chloride 108 mmol/L (98-107); Estimated GFR-MDRD 24; Glucose 137 mg/dL (70-105); Potassium 4.4 mmol/L (3.5-5.1); Sodium 142 mmol/L (136-145)
[2019-08-16 06:52] LABS: Band 6 % (5-11); Eosinophils 1 % (0-10); Hemoglobin 8.9 g/dL (14.0-18.0); Lymphocytes 6 % (21-51); MDiff Complete? YES; Mean Corpuscular HGB CONC 32.2 g/dL (32.0-36.0); Mean Corpuscular Hemoglobin 29.2 pg (27.0-31.0); Mean Corpuscular Volume 90.8 fL (78.0-98.0); Monocytes 7 % (0-10); Neutrophil 80 % (42-75); Platelet Count 382 thou/uL (130-400); Red Blood Cell (RBC) Count 3.04 mill/uL (4.70-6.10); White Blood Cell (WBC) Count 13.1 thou/uL (4.8-10.8)
--- NOTE | 2019-08-16 08:15 | RAD ---
CHEST 1 VIEW: Date: 08/16/2019 INDICATION: History of CCU patient on ventilator. COMPARISON: Prior exam dated 08/12/2019. FINDINGS: The lungs are hypoventilated. The heart size is accentuated by the exam technique. No definite air sp danis consolidation or pleural effusion is evident. No acute osseous abnormalities are noted. IMPRESSION: Hypoventilation. POS: BH
[2019-08-16] MEDS: Guaifenesin DM 100-10/5 ML UDCUP PO PRN (08:50)
[2019-08-16] MEDS: Famotidine 20 MG TAB PO SCH (08:51)
[2019-08-16] MEDS: Digoxin 0.125 MG TAB PO SCH (08:51)
[2019-08-16] MEDS: Gabapentin 300 MG CAP PO SCH ×2 (08:51→15:34)
[2019-08-16] MEDS: Metoprolol Tartrate 25 MG TAB PO SCH (08:51)
[2019-08-16] MEDS: Amlodipine 5 MG TAB PO SCH (08:51)
[2019-08-16] MEDS: Nicotine 21 MG PATCH TD SCH (08:55)
[2019-08-16] MEDS: Insulin Glargine 10 UNITS in Pre-Filled Syringe 1 EACH SC SCH (08:56)
--- NOTE | 2019-08-16 08:56 | PDOC.PALPN ---
Palliative Progress Note - Subjective Breakfast tray in front of patient, he was sleeping but arousable. Oriented to self and place, confused as he is talking about "being in a war" and that is how he lost his left lower extremity. Wet weak cough. Weakness. - Objective Vital Signs: Vital Signs - Most Recent Temp Pulse Resp BP Pulse Ox 98.9 F 80 16 147/81 H 92 L 08/16/19 07:25 08/16/19 07:25 08/16/19 07:25 08/16/19 07:25 08/16/19 07:25 - Physical Exam Constitutional: confusion, ill appearing HEENT: moist MMs Deviation from normal: Strabismus Respiratory: cough Deviation from normal: Wet non productive cough Cardiovascular: RRR Gastrointestinal: non-tender, incontinent Genitourinary: incontinent Deviation from normal: Left below the knee amputation Neurology: moves all 4 limbs Skin: cap refill <2 seconds Deviation from normal: delusional, oriented to self and place. - Assessment (1) Palliative care encounter Code(s): Z51.5 - ENCOUNTER FOR PALLIATIVE CARE Current Visit: Yes Status: Acute (2) Physical deconditioning Code(s): R53.81 - OTHER MALAISE Current Visit: Yes Status: Chronic (3) Decubitus skin ulcer Code(s): L89.90 - PRESSURE ULCER OF UNSPECIFIED SITE, UNSPECIFIED STAGE Current Visit: Yes Status: Acute (4) Sepsis Code(s): A41.9 - SEPSIS, UNSPECIFIED ORGANISM Current Visit: Yes Status: Acute (5) CHF (congestive heart failure) Code(s): I50.9 - HEART FAILURE, UNSPECIFIED Current Visit: No Status: Chronic - Plan Plan: Will ensure MPOA document completed and in chart. More confused today, intermittently taking Gabapentin for phantom pain. Plan to discharge to rehab then back to previous living situation with his partner "Loyda" who also is called Carly. Hope is he will have home health follow at home to continue to facilitate PT. Discussed with Carly importance of clean and decluttered home setting to prevent infection and minimize fall risk. Follow up phone call to patient sister Jorge as well Communicated with Som Varela and Louis in relation to confusion and cough. RN Caring for patient offered cough medication. Teaching with patient in relation to aspiration precautions. [40] minutes spent on this encounter with >50% of the time in counseling and coordination of care. - ROS ENT: alteration in dentition, difficulty swallowing Respiratory: other (wet non productive cough) Cardiology: other (negative for Palpitations, chest pain) Gastrointestinal: other (Negative for constipation, vomiting) Musculoskeletal: other Psychological: memory changes
--- NOTE | 2019-08-16 10:43 | PRG ---
DATE OF SERVICE: 08/16/2019 He is doing well today, one day postop. He seems a little confused. The pillow under his left BK stump is beneath his thigh with his knee flexed. I have explained to him he needs to keep the pillow and blankets beneath his BKA stump below his knee to prevent flexion and to promote extension to avoid contracture. From a surgical standpoint, the patient's dressings can be removed in the morning. This can be done in rehab or locally at the hospital. The patient is stable to transfer to rehab. He needs to be out of bed, use incentive spirometer, needs to be mobile Physical Therapy needs to work with him with mobility and transfers, ambulation with a walker, although he may not be strong enough for that now. The patient is doing well postoperatively in his baseline. He has baseline chronic kidney disease and anemia without a significant change in his hemoglobin after amputation. Job ID: [id number]
--- NOTE | 2019-08-16 12:35 | PDOC.HOSPP ---
- Subjective Encounter Date: 08/16/19 Encounter Time: 12:33 Subjective: alert, no specific complaints - Objective Vital Signs & Weight: Vital Signs (12 hours) Temp Pulse Resp BP Pulse Ox 08/16/19 11:24 97.7 F 72 16 129/63 93 L 08/16/19 08:51 80 08/16/19 07:25 98.9 F 80 16 147/81 H 92 L 08/16/19 07:23 78 16 93 L 08/16/19 04:07 98.3 F 85 16 140/74 98 Weight Admit Weight 173 lb 3 oz Weight 202 lb 13.204 oz Most Recent Monitor Data Heart Rate from ECG 99 NIBP 137/74 NIBP BP-Mean 95 Respiration from ECG 26 SpO2 97 I&O: 08/15/19 08/16/19 08/17/19 06:59 06:59 06:59 Intake Total 2900 1320 Balance 2900 1320 Result Diagrams: 08/16/19 05:31 08/16/19 05:31 Additional Labs: Accuchecks 08/16/19 08/16/19 08/15/19 12:17 05:37 20:10 POC Glucose 167 H 165 H 300 H 08/15/19 15:43 POC Glucose 184 H Hospitalist ROS - Medication Medications: Active Medications Generic Name Dose Route Start Last Admin Trade Name Freq PRN Reason Stop Dose Admin Acetaminophen 1,000 mg 08/08/19 12:07 08/12/19 09:22 Tylenol PO 1,000 mg Q6H PRN Administration Moderate to Severe Pain (6-10) Albuterol/Ipratropium 3 ml 08/09/19 07:00 08/16/19 07:23 Duoneb NEB 3 ml [id number] RONI Administration Amlodipine Besylate 5 mg 08/05/19 09:00 08/16/19 08:51 Norvasc PO 5 mg DAILY RONI Administration Clonidine 0.2 mg 08/14/19 04:00 08/14/19 04:32 [id number]-Hzp-0 TD 0.2 mg Q7D@0400 RONI Administration Digoxin 0.125 mg 08/04/19 09:00 08/16/19 08:51 Lanoxin PO 0.125 mg DAILY RONI Administration Diphenhydramine HCl 25 mg 08/04/19 05:18 08/12/19 20:54 Benadryl PO 25 mg Q4H PRN Administration Itching Enoxaparin Sodium 30 mg 08/15/19 21:00 08/15/19 20:32 Lovenox SC 30 mg 2100 RONI Administration Famotidine 40 mg 08/04/19 21:00 08/16/19 08:51 Pepcid PO 40 mg BID RONI Administration Fentanyl 25 mcg 08/11/19 14:00 08/14/19 13:45 Duragesic TD 25 mcg Q3D RONI Administration Gabapentin 300 mg 08/08/19 15:00 08/16/19 08:51 Neurontin PO 300 mg TID RONI Administration Guaifenesin/Dextromethorphan 15 ml 08/04/19 05:16 08/16/19 08:50 Robitussin Dm PO 15 ml Q4H PRN Administration Cough Insulin Glargine 10 units/ 0.1 mls @ 0 mls/hr 08/09/19 09:00 08/16/19 08:56 Miscellaneous Medication SC 0.1 mls QAM RONI Administration Insulin Human Lispro 0 units 08/04/19 12:33 08/14/19 18:11 Humalog SC 2 unit .MODERATE SLIDING SC PRN Administration Moderate Correctional Scale Insulin Human Lispro 0 units 08/04/19 12:33 08/15/19 20:33 Humalog SC 3 units .BEDTIME SLIDING SC PRN Administration Bedtime Correctional Scale Lorazepam 0.5 mg 08/10/19 20:36 08/11/19 06:29 Ativan SLOW IVP 0.5 mg Q6H PRN Administration Anxiety/Agitation Metoprolol Tartrate 25 mg 08/04/19 09:00 08/16/19 08:51 Lopressor PO 25 mg BID RONI Administration Nicotine 21 mg 08/11/19 09:00 08/16/19 08:55 Nicoderm Patch TD 21 mg DAILY RONI Administration Sodium Chloride 10 ml 08/04/19 21:00 08/16/19 09:00 Flush - Normal Saline IVF Not Given Q12HR RNOI Sodium Chloride 10 ml 08/04/19 10:17 08/11/19 06:27 Flush - Normal Saline IVF 10 ml PRN PRN Administration Saline Flush Tamsulosin HCl 0.4 mg 08/04/19 21:00 08/15/19 20:33 Flomax PO 0.4 mg HS RONI Administration - Exam General Appearance: awake alert Neck: no JVD Heart: RRR, no murmur Respiratory: CTAB Gastrointestinal: soft, normal bowel sounds Extremities: no edema Extremities - other findings: L BKA Hosp A/P (1) DM type 2 causing CKD stage 4 Code(s): E11.22 - TYPE 2 DIABETES MELLITUS W DIABETIC CHRONIC KIDNEY DISEASE; N18.4 - CHRONIC KIDNEY DISEASE, STAGE 4 (SEVERE) Status: Acute Qualifiers: 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: with penitentiary use Qualified Code( s): E11.22 - Type 2 diabetes mellitus with diabetic chronic kidney disease; N18.4 - Chronic kidney disease, stage 4 (severe); Z79.4 - penitentiary (current) use of insulin (2) Cardiomyopathy Code(s): I42.9 - CARDIOMYOPATHY, UNSPECIFIED Status: Acute Qualifiers: Cardiomyopathy type: unspecified Qualified Code(s): I42.9 - Cardiomyopathy , unspecified (3) Foot ulcer due to secondary DM Code(s): E13.621 - OTHER SPECIFIED DIABETES MELLITUS WITH FOOT ULCER; L97.509 - NON-PRESSURE CHRONIC ULCER OTH PRT UNSP FOOT W UNSP SEVERITY Status: Acute (4) HTN (hypertension) Code(s): I10 - ESSENTIAL (PRIMARY) HYPERTENSION Status: Chronic Qualifiers: Hypertension type: essential hypertension Qualified Code(s): I10 - Essential (primary) hypertension (5) Anemia in chronic kidney disease Code(s): N18.9 - CHRONIC KIDNEY DISEASE, UNSPECIFIED; D63.1 - ANEMIA IN CHRONIC KIDNEY DISEASE Status: Acute - Plan POST amputation LL leg wound care, selected home meds placement fot PT/etc
[2019-08-16 12:49] VITALS: BMI 30.8
[2019-08-16 15:48] VITALS: BP 148/71; TEMP 98
--- NOTE | 2019-08-16 16:15 | DIS ---
DATE OF ADMISSION: 08/03/2019 DATE OF DISCHARGE: 08/16/2019 PRIMARY CARE PROVIDER: Navya Cole MD DISPOSITION: Discharged to inpatient rehab. FINAL DIAGNOSES: 1. Diabetic ulcer, left heel, status post left below-knee amputation. 2. Diabetes mellitus type 2 with chronic kidney disease. 3. Anemia of chronic kidney disease. 4. Hypertension. 5. Cardiomyopathy. 6. Acute respiratory failure with hypoxia. 7. Peripheral arterial disease. 8. Dyslipidemia. DISCHARGE MEDICATIONS: 1. Pepcid 40 mg p.o. b.i.d. 2. Tradjenta 5 mg a day. 3. Amlodipine 5 mg a day. 4. Clonidine transdermal patch, #2, one change weekly. 5. Digoxin 0.125 mg a day. 6. Tramadol 50 to 100 mg p.o. q.6 hours p.r.n. 7. Fentanyl patch 25 mcg on skin, change q.3 days. 8. Flomax 0.4 mg at bedtime. 9. Nicoderm patch 21 mg daily. 10. Metoprolol 25 mg twice a day. 11. DuoNeb 3 mL p.o. q.6 hours p.r.n. 12. Lantus 10 units subcu in the morning. 13. Gabapentin 300 mg p.o. t.i.d. 14. Lovenox 30 mg a day. 15. Tylenol 1000 mg p.o. q.6 hours. ALLERGIES: HYDROCODONE AND METFORMIN. DIET: As tolerated. CODE STATUS: DNAR. HOSPITAL COURSE: The patient admitted to [facility] to the Hospitalist Service. He had bilateral lower extremity ulcers, sacral ulcer, etc. His EKG showed atrial fibrillation, right bundle-branch block. White count 19,000, hemoglobin 13, platelet count 290, creatinine 1.7, and bicarb 20. Chest x-ray showed no acute cardiopulmonary process. He was admitted to the medical floor. The patient has a history of noncompliance. He was started on vancomycin and Zosyn. Consult was obtained from Dr. Emilio Myers. Lower extremity ultrasound revealed atherosclerosis to both extremities. Echocardiogram revealed a cardiomyopathy of 45%. 08/08/2019, seen by Dr. Emilio Myers, a debridement of the extensive wound on the left foot. On 08/08/2019, consultation was obtained with Dr. Ugarte. The patient was seen by Palliative Care. 08/09/2019, consultation with Dr. Raúl Costello, Pulmonology. At that time, the patient was intubated and sedated post cardiopulmonary resuscitation. Chest x-ray on 08/10/2019 revealed the endotracheal tube and the NG tube in place, increased density in the right lung base, possible pleural effusion. White count 17.8, hemoglobin 10.6, and platelet count 310,000. On 08/10, lytes were balanced. BUN 48 and creatinine 3.09. Arterial blood gas at time of the CPR, pH 6.98, it returned to 7.4, CO2 of 136, it had come down to 37.7, O2 was 91.9. On 08/14, the patient underwent left qfnrb-uic-kucn amputation. His most recent laboratory 08/15/2019, hemoglobin 9.3, white count 10.0, platelet count 362,000. On 08/15, lytes are balanced, creatinine 2.74, BUN 46, blood sugars elevated in the [address] Myers stated he is stable for discharge. He is being discharged to rehab. His Tradjenta has been added to his insulin. He needs to be continued on Accu-Cheks and sliding scale. He needs PT, OT, wound care. The patient's condition has been aggravated by his noncompliance with medical care, etc., and will most likely continue to do so. 35 minutes were spent preparing this discharge. Job ID: [id number]
== END 2019-08-16 19:00 | DRG 853 ==
LOC: ERS 20:27 → T4-A 22:02 → ERS 22:56 → CCU 08-09 05:44 → ONC 08-10 14:00 → SURG B 08-15 05:32
PROVIDERS: ADMIT Internal Medicine; ATTEND Internal Medicine
PROC: 0QBM0ZZ Excision of Left Tarsal, Open Approach (ICD-10-PCS; principal; 2019-08-08)
PROC: 0BH17EZ Insertion of Endotracheal Airway into Trachea, Via Natural or Artificial Opening (ICD-10-PCS; 2019-08-09)
PROC: 5A1935Z Respiratory Ventilation, Less than 24 Consecutive Hours (ICD-10-PCS; 2019-08-09)
PROC: 0Y6J0Z1 Detachment at Left Lower Leg, High, Open Approach (ICD-10-PCS; 2019-08-15)
DX: A41.9 Sepsis, unspecified organism (principal); L89.624 Pressure ulcer of left heel, stage 4; J96.02 Acute respiratory failure with hypercapnia; J96.01 Acute respiratory failure with hypoxia; I42.9 Cardiomyopathy, unspecified; I13.0 Hypertensive heart and chronic kidney disease with heart failure and stage 1 through stage 4 chronic kidney disease, or unspecified chronic kidney disease; Z51.5 Encounter for palliative care; Z66 Do not resuscitate; L03.116 Cellulitis of left lower limb; L03.115 Cellulitis of right lower limb; I48.20 Chronic atrial fibrillation, unspecified; R64 Cachexia; I96 Gangrene, not elsewhere classified; N17.9 Acute kidney failure, unspecified; N18.4 Chronic kidney disease, stage 4 (severe); E11.621 Type 2 diabetes mellitus with foot ulcer; I45.10 Unspecified right bundle-branch block; E11.22 Type 2 diabetes mellitus with diabetic chronic kidney disease; D63.1 Anemia in chronic kidney disease; E78.5 Hyperlipidemia, unspecified; E11.649 Type 2 diabetes mellitus with hypoglycemia without coma; I50.9 Heart failure, unspecified; R53.81 Other malaise; F10.10 Alcohol abuse, uncomplicated; R27.0 Ataxia, unspecified; F17.210 Nicotine dependence, cigarettes, uncomplicated; E87.5 Hyperkalemia; I25.10 Atherosclerotic heart disease of native coronary artery without angina pectoris; Z88.8 Allergy status to other drugs, medicaments and biological substances; I25.2 Old myocardial infarction; Z99.3 Dependence on wheelchair; Z91.14 Patient's other noncompliance with medication regimen; Z79.01 Long term (current) use of anticoagulants; Z79.4 Long term (current) use of insulin; Z68.30 Body mass index [BMI] 30.0-30.9, adult
CPT/HCPCS: 36415; 36416; 70450; 71045; 80048; 80053; 80162; 80202; 82140; 82550; 82607; 82746; 82805; 83036; 83540; 83550; 83605; 83735; 83880; 84484; 85007; 85025; 85027; 86850; 86900; 86901; 87040; 87070; 87076; 87077; 87186; 87205; 88305; 88307; 93005; 93306; 93923; 94002; 94003; 94640; 96365; 96367; 96375; J0670; J1650; J1815; J1940; J2001; J2060; J2250; J2543; J2704; J3010; J3370; J3490; J7050; J7620; Q0163

== ENCOUNTER 2019-08-22 22:33 | Emergency (ER) | payer MEDICARE, MEDICAID ==
--- NOTE | 2019-08-22 23:53 | RAD ---
PORTABLE CHEST: 08/22/19 PROVIDED CLINICAL HISTORY: Shortness of breath. FINDINGS: Comparison 08/16/19. Cardiac silhouette appears enlarged. No focal consolidation, pleural fluid, or pneumothorax apparent. IMPRESSION: No evidence for an acute cardiopulmonary process. POS: CLAUDIA
[2019-08-22 23:57] LABS: #Eosinphils 0.2 thou/uL (0.0-0.7); #Lymphocytes 1.6 thou/uL (1.20-3.40); #Monocytes 0.6 thou/uL (0.11-0.59); #Neutrophils 7.3 thou/uL (1.40-6.50); %Basophils 0.5 % (0.0-1.0); %Eosinophils 2.2 % (0.0-10.0); %Lymphocytes 16.1 % (21.0-51.0); %Monocytes 6.3 % (0.0-10.0); %Neutrophils 74.9 % (42.0-75.0); Hemoglobin 7.8 g/dL (14.0-18.0); Mean Corpuscular HGB CONC 32.6 g/dL (32.0-36.0); Mean Corpuscular Hemoglobin 29.7 pg (27.0-31.0); Mean Corpuscular Volume 90.9 fL (78.0-98.0); Mean Platelet Volume 9.3 fL (7.4-10.4); Platelet Count 401 thou/uL (130-400); RBC Distribution Width 13.3 % (11.5-14.5); Red Blood Cell (RBC) Count 2.64 mill/uL (4.70-6.10); White Blood Cell (WBC) Count 9.7 thou/uL (4.8-10.8)
[2019-08-23] LABS: Bacteria/HPF None Seen HPF (None Seen); Bilirubin Negative (Negative); Blood, Urine 1+ (Negative); Clarity Clear (Clear); Glucose, Urine (Dipstick) 200 mg/dL (Negative); Leukocyte 75 Leu/uL (Negative); Nitrite Negative (Negative); Protein, Urine (Dipstick) 200 mg/dL (Neg-Trace); Squamous Epithelial 0-3 HPF (0-3); Urobilinogen Normal mg/dL (Less than 2)
[2019-08-23 00:19] LABS: ALT (SGPT) 13 U/L (8-55); AST (SGOT) 13 U/L (5-34); Albumin 2.8 g/dL (3.5-5.0); Alkaline Phosphatase 109 U/L (40-110); Anion Gap 11 mmol/L (10-20); BUN (Urea Nitrogen) 39 mg/dL (8.4-25.7); Bilirubin, Total 0.2 mg/dL (0.2-1.2); Calc. Creatinine Clearance 0 mL/min (70-130); Carbon Dioxide 26 mmol/L (22-29); Chloride 106 mmol/L (98-107); Estimated GFR-MDRD 26; Globulin 3.6 g/dL (2.4-3.5); Glucose 139 mg/dL (70-105); Potassium 4.2 mmol/L (3.5-5.1); Protein, Total 6.4 g/dL (6.0-8.3); Sodium 139 mmol/L (136-145)
--- NOTE | 2019-08-24 14:50 | EKG ---
Test Reason : Blood Pressure : / mmHG Vent. Rate : 060 BPM Atrial Rate : 071 BPM P-R Int : 000 ms QRS Dur : 130 ms QT Int : 446 ms P-R-T Axes : 000 -31 -03 degrees QTc Int : 446 ms Atrial fibrillation Left axis deviation Right bundle branch block Inferior infarct , age undetermined Anterior infarct , age undetermined Abnormal ECG Confirmed by YESSENIA INFANTE DO ([id number]), videotape editor [place] [facility] ([id number]) on 08/24/2019 2:50:07 PM Referred By: Confirmed By:YESSENIA INFANTE DO
== END 2019-08-23 01:28 | disposition home or self-care (01) ==
LOC: ERS 22:33
DX: M62.81 Muscle weakness (generalized) (principal); D64.9 Anemia, unspecified; E78.5 Hyperlipidemia, unspecified; I11.0 Hypertensive heart disease with heart failure; I50.9 Heart failure, unspecified; I25.2 Old myocardial infarction; I48.91 Unspecified atrial fibrillation; F17.210 Nicotine dependence, cigarettes, uncomplicated; Z79.899 Other long term (current) drug therapy
CPT/HCPCS: 36415; 71045; 80053; 81003; 81015; 83735; 83880; 84484; 85025; 87040; 87086; 93005

== ENCOUNTER 2019-10-13 13:53 | Emergency (ER) | payer MEDICARE, MEDICAID ==
[~2019-10-13 13:53] MED LIST changes: +Iopamidol-370 76% 500 ML 1 ML ONE; -Rocuronium Bromide 10 MG/ML (10ML VIAL) ONE; -Sodium Chloride 0.9% (PF) 10 ML VIAL ONE
[2019-10-13 14:48] LABS: Bilirubin Negative (Negative); Blood, Urine Trace (Negative); Clarity Turbid (Clear); Glucose, Urine (Dipstick) Greater than 1000 mg/dL (Negative); Leukocyte 500 Leu/uL (Negative); Nitrite 2+ (Negative); Protein, Urine (Dipstick) 300 mg/dL (Neg-Trace); Squamous Epithelial 0-3 HPF (0-3); Triple Phosphate Crystal 1+ HPF (None Seen); Urobilinogen Normal mg/dL (Less than 2); WBC/HPF Greater than 50 HPF (0-3)
[2019-10-13 14:51] LABS: #Eosinphils 0.3 thou/uL (0.0-0.7); #Lymphocytes 1.3 thou/uL (1.20-3.40); #Monocytes 0.7 thou/uL (0.11-0.59); #Neutrophils 8.1 thou/uL (1.40-6.50); %Basophils 0.3 % (0.0-1.0); %Eosinophils 2.7 % (0.0-10.0); %Lymphocytes 12.6 % (21.0-51.0); %Monocytes 6.6 % (0.0-10.0); %Neutrophils 77.8 % (42.0-75.0); Mean Corpuscular HGB CONC 32.2 g/dL (32.0-36.0); Mean Corpuscular Hemoglobin 28.4 pg (27.0-31.0); Mean Corpuscular Volume 88.2 fL (78.0-98.0); Mean Platelet Volume 9.8 fL (7.4-10.4); Platelet Count 210 thou/uL (130-400); Red Blood Cell (RBC) Count 4.24 mill/uL (4.70-6.10); White Blood Cell (WBC) Count 10.5 thou/uL (4.8-10.8)
[2019-10-13 14:58] LABS: Bacteria/HPF 2+ HPF (None Seen)
[2019-10-13 15:12] LABS: ALT (SGPT) 7 U/L (8-55); AST (SGOT) 7 U/L (5-34); Albumin 3.2 g/dL (3.5-5.0); Alkaline Phosphatase 108 U/L (40-110); Anion Gap 13 mmol/L (10-20); BUN (Urea Nitrogen) 36 mg/dL (8.4-25.7); Bilirubin, Total 0.2 mg/dL (0.2-1.2); CK (CPK) 35 U/L (30-200); Calc. Creatinine Clearance 0 mL/min (70-130); Calcium 8.3 mg/dL (7.8-10.44); Carbon Dioxide 20 mmol/L (22-29); Chloride 101 mmol/L (98-107); Estimated GFR-MDRD 44; Globulin 3.7 g/dL (2.4-3.5); Glucose 467 mg/dL (70-105); Lipase 69 U/L (8-78); Potassium 4.4 mmol/L (3.5-5.1); Protein, Total 6.9 g/dL (6.0-8.3); Sodium 130 mmol/L (136-145)
[2019-10-13] MEDS ORDERED: cefTRIAXone\\ROCEPHIN 2 GM VIAL ONE (15:23)
--- NOTE | 2019-10-13 19:22 | CT ---
CT ABDOMEN AND PELVIS WITH IV CONTRAST: 10/13/19 HISTORY: Intermittent abdominal pain. COMPARISON: None. FINDINGS: Coronary artery calcifications are noted. The lung bases are unremarkable. The liver, spleen, adrenal glands and kidneys are unremarkable There is a fat containing 5 mm lesion in the body of the pancrea s consistent with lipoma. Few calcifications in the head of the pancreas are likely due to chronic pa ncreatitis. No calcified gallstones are seen. No free air, free fluid or lymphadenopathy is noted in the abdomen or pelvis. The small bowel loops are not abnormally dilated. There is fecal material in the colon and rectum. Th e rectum is distended with mural thickening. The urinary bladder wall appears thickened. There is a F oley catheter and air in the urinary bladder. There are vascular calcifications without evidence of aneurysmal dilatation of the abdominal aorta. T here are degenerative changes in the spine. IMPRESSION: 1. Findings are suspicious for stercoral colitis. 2. Bladder wall thickening. Urologic consultation/cystoscopy would be helpful. POS: [facility]
== END 2019-10-13 19:30 | disposition home or self-care (01) ==
LOC: ERS 13:53
DX: K52.89 Other specified noninfective gastroenteritis and colitis (principal); I13.2 Hypertensive heart and chronic kidney disease with heart failure and with stage 5 chronic kidney disease, or end stage renal disease; E11.22 Type 2 diabetes mellitus with diabetic chronic kidney disease; N18.5 Chronic kidney disease, stage 5; I50.9 Heart failure, unspecified; E78.5 Hyperlipidemia, unspecified; I25.2 Old myocardial infarction; I48.91 Unspecified atrial fibrillation; I42.9 Cardiomyopathy, unspecified; Z79.4 Long term (current) use of insulin; Z79.01 Long term (current) use of anticoagulants; Z79.899 Other long term (current) drug therapy
CPT/HCPCS: 36415; 74177; 80053; 81003; 81015; 82550; 83690; 85025; 87086; J0696; Q9967

== ENCOUNTER 2019-11-02 16:49 | Inpatient (IN) | payer MEDICARE, MEDICAID ==
[2019-11-02 17:26] LABS: #Basophils 0.1 thou/uL (0.0-0.2); #Eosinphils 0.2 thou/uL (0.0-0.7); #Monocytes 0.7 thou/uL (0.11-0.59); #Neutrophils 7.7 thou/uL (1.40-6.50); %Basophils 0.7 % (0.0-1.0); %Eosinophils 1.9 % (0.0-10.0); %Lymphocytes 10.4 % (21.0-51.0); %Monocytes 7.6 % (0.0-10.0); %Neutrophils 79.4 % (42.0-75.0); Mean Corpuscular HGB CONC 34.1 g/dL (32.0-36.0); Mean Corpuscular Hemoglobin 28.9 pg (27.0-31.0); Mean Corpuscular Volume 84.8 fL (78.0-98.0); Platelet Count 181 thou/uL (130-400); RBC Distribution Width 14.6 % (11.5-14.5); Red Blood Cell (RBC) Count 4.15 mill/uL (4.70-6.10); White Blood Cell (WBC) Count 9.6 thou/uL (4.8-10.8)
[2019-11-02 17:36] LABS: Bilirubin Negative (Negative); Blood, Urine Trace (Negative); Clarity Extra Turbid (Clear); Glucose, Urine (Dipstick) Greater than 1000 mg/dL (Negative); Leukocyte 500 Leu/uL (Negative); Nitrite Negative (Negative); Protein, Urine (Dipstick) Greater than 600 mg/dL (Neg-Trace); RBC/HPF None Seen HPF (0-3); Squamous Epithelial None Seen HPF (0-3); Urobilinogen Normal mg/dL (Less than 2); WBC/HPF Greater than 50 HPF (0-3)
--- NOTE | 2019-11-02 17:37 | RAD ---
EXAM: CHEST ONE VIEW HISTORY: Chest pain COMPARISON: 08/22/2019 FINDINGS: Cardiac silhouette is magnified by projection but stable in size. Pulmonary vasculature is within nor mal limits. The lungs are clear. The osseous structures are intact. Chest is stable compared to prior study. IMPRESSION: No acute cardiopulmonary process.
[2019-11-02] MEDS ORDERED: Nitroglycerin 2% Ointment 1 INCH/1 GM Packet ONE (17:44)
[2019-11-02 17:49] LABS: Bacteria/HPF 4+ HPF (None Seen)
[2019-11-02 17:50] LABS: Triple Phosphate Crystal 1+ HPF (None Seen)
[2019-11-02 18:02] LABS: ALT (SGPT) 8 U/L (8-55); AST (SGOT) 7 U/L (5-34); Albumin 3.1 g/dL (3.5-5.0); Alkaline Phosphatase 113 U/L (40-110); Anion Gap 14 mmol/L (10-20); BUN (Urea Nitrogen) 35 mg/dL (8.4-25.7); Bilirubin, Total 0.2 mg/dL (0.2-1.2); Calc. Creatinine Clearance 0 mL/min (70-130); Calcium 7.7 mg/dL (7.8-10.44); Carbon Dioxide 19 mmol/L (22-29); Chloride 105 mmol/L (98-107); Estimated GFR-MDRD 36; Globulin 2.8 g/dL (2.4-3.5); Glucose 414 mg/dL (70-105); Lipase 20 U/L (8-78); Potassium 3.9 mmol/L (3.5-5.1); Protein, Total 5.9 g/dL (6.0-8.3); Sodium 134 mmol/L (136-145)
[2019-11-02 18:11] LABS: CKMB 3.1 ng/mL (0-6.6)
[2019-11-02] MEDS ORDERED: Insulin Regular 300 UNITS/3 ML VIAL ONE (19:39)
[2019-11-02 20:15] LABS: Base Excess-Venous -5.2 mmol/L (-2.0 to 3.0); Bicarbonate (HCO3v) 19.8 mmol/L (22.0-28.0); CO2 Tension (PvCO2) 35.9 mmHg (40.0-50.0); Calcium, Ionized 1.16 mmol/L (See Comments:); Chloride 104 mmol/L (98-107); Hemoglobin - Calc 12.2 g/dL (14.0-18.0); Potassium 3.6 mmol/L (3.5-5.1); Sodium 135 mmol/L (138-145); T. Carbon Dioxide 20.9 mmol/L (22.0-28.0); vO2 Saturation-calc 83.2 % (60.0-85.0)
[2019-11-02] MEDS ORDERED: Nitroglycerin 0.4 MG TAB (25 Tab Bottle) PO PRN (21:28)
[2019-11-02] MEDS ORDERED: Dextrose 50% Abboject 50 ML SYRINGE SLOW IVP PRN (21:34)
[2019-11-02] MEDS ORDERED: Dextrose 5% in Water 1,000 ML IV PRN (21:34)
[2019-11-02] MEDS ORDERED: Calcium Carbonate 500 MG ChewTAB PO PRN (21:38)
[2019-11-02] MEDS ORDERED: Senokot S 8.6-50 MG TAB PO PRN (21:38)
[2019-11-02] MEDS ORDERED: Heparin 25,000 units/D5W 500 ML IVPB SCH (22:00)
[2019-11-02] MEDS ORDERED: Nitroglycerin 2% Ointment 1 INCH/1 GM Packet TOP SCH (22:00)
[2019-11-02] MEDS ORDERED: Heparin 10,000 UNITS/ 10 ML VIAL SLOW IVP SCH (22:00)
[2019-11-02 22:05] LABS: Amphetamine Not Detected (NotDetected); Barbiturates Screen Not Detected (NotDetected); Benzodiazepine Screen Not Detected (NotDetected); Cocaine Metabolite Screen Not Detected (NotDetected); Medtox Control Line Valid? VALID (VALID); Medtox Reader # READER 4; Methadone Not Detected (NotDetected); Methamphetamine Not Detected (NotDetected); Opiate Screen Not Detected (NotDetected); Oxycodone Screen Not Detected (NotDetected); Phencyclidine (PCP) Not Detected (NotDetected); THC/Cannabinoid Screen Not Detected (NotDetected); Tricyclic Screen Not Detected (NotDetected)
[2019-11-02 22:18] LABS: Hemoglobin 10.8 g/dL (14.0-18.0); Platelet Count 169 thou/uL (130-400)
[2019-11-02] MEDS ORDERED: Magnesium 2 GM/50 ML 2 GM in Premix Bag 1 BAG IVPB SCH (22:30)
--- NOTE | 2019-11-02 23:11 | HP ---
PRIMARY CARE PHYSICIAN: Dr. Mckeon with [facility]. CHIEF COMPLAINT: Chest pain x2 weeks. HISTORY OF PRESENT ILLNESS: The patient is a 59-year-old male with a past medical history significant for hypertension, hyperlipidemia, diabetes type 2, atrial fibrillation, on Eliquis, CHF, cardiomyopathy, and COPD, who presents to the ER for the above complaint. The patient reports over the last several weeks having right-sided chest pain, described as a dull pressure, it is exacerbated with movement at times. He describes it as being tight and sharp like a knife. It is associated with lightheadedness with exertion. He denies any heart palpitations or swelling to his lower extremities. He reports associated SOB and some LAMBERT. He has history of COPD. Denies any wheezing. He denies any recent fever or chills. He denies any focal deficits. He has no history of DVT or PE. He denies any illicit drug use. Of note, the patient was discharged from our hospital in early August for a left diabetic foot ulcer and osteomyelitis which required a left BKA. [facility] was providing Home Health care. He reports that he stopped seeing them about 2 weeks ago because he was generally weak and unable to complete therapy. He has been to week to ambulate for several days. Furthermore, he stopped taking his home medications several days ago because his friend, who helps administer his home medications, has been hospitalized. The patient is a poor historian and cannot tell me any of his home medications or dosages. 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 He has never had a stress test, and his most recent echo was in July 2019. In the ER, the patient's presented mildly hypertensive and tachycardic. His respirations were normal. His O2 saturation was 98% on room air. He was afebrile. EKG was AFib, rate controlled with a right bundle branch block. Troponin was 0.033. CK-MB was 3.1. Chest x-ray was negative for any acute process. The patient also had an elevated blood glucose of 414. VBG was performed. PH was 7.35, CO2 of 35.9, bicarb of 19.8. His beta- hydroxybutyrate was 0.23. His anion gap was 14. The patient's UA was consistent for UTI with bacteria of 4+, leukocyte esterase of 500, WBCs greater than 50. The patient's creatinine was 1.94. The patient was given 1 L of IV fluid, Novolin 10 units IV push, and Nitro-Bid. The patient was given aspirin by EMS. PAST MEDICAL HISTORY: 1. Hypertension. 2. Hyperlipidemia. 3. Diabetes 2. 4. AFib. 5. CHF. 6. Cardiomyopathy. 7. COPD. 8. BPH. PAST SURGICAL HISTORY: 1. 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 2. Hernia repair. 3. Tonsillectomy. 4. A bulla removed from his right leg. SOCIAL HISTORY: The patient lives with his friend in [place]. He is retired. He admits to a one pack per day history of greater than 40 years. He is trying to quit. For the past 2 weeks, he has been wearing a nicotine patch. He denies any alcohol intake. He denies any illicit drug use. FAMILY HISTORY: Significant for cardiac disease. ALLERGIES: 1. HYDROCODONE. 2. METFORMIN. HOME MEDICATIONS: 1. Pepcid 40 mg p.o. b.i.d. 2. Tradjenta 5 mg p.o. daily. 3. Amlodipine 5 mg p.o. daily. 4. Clonidine transdermal patch #2, change weekly. 5. Digoxin 0.125 mg p.o. daily. 6. Tramadol 50 mg p.o. q.6 hours p.r.n. pain. 7. Fentanyl patch 25 mcg on skin q.3 days for pain. 8. Flomax 0.4 mg p.o. at bedtime. 9. Nicoderm patch 21 mg transdermal daily. 10. Metoprolol 25 mg p.o. b.i.d. 11. DuoNeb 3 mL inhaled q.6 hours p.r.n. shortness of breath and wheezing. 12. Lantus 10 units subcu in the morning. 13. Gabapentin 300 mg p.o. t.i.d. 14. Lovenox 30 mg p.o. daily. 15. Tylenol 1000 mg p.o. q.6 hours p.r.n. pain and fever. REVIEW OF SYSTEMS: All review of systems are negative unless otherwise stated in the HPI. PHYSICAL EXAMINATION: VITAL SIGNS: Temperature 98.6, blood pressure 151/80, heart rate 116, respirations 16, SpO2 of 98 on room air. CONSTITUTIONAL: The patient is alert and oriented to person, place, and time. He appears comfortable and nontoxic. He appears older than stated age. He is a poor historian. HEAD: Atraumatic and normocephalic. EYES: PERRLA. Extraocular muscles intact. ENT: Nares patent bilaterally. TMs intact bilaterally. Oropharynx is clear. Uvula midline. Mucous membranes are dry. No oral lesions. NECK: Supple. Trachea midline. No JVD. No cervical adenopathy. No cervical tenderness. RESPIRATORY: Respirations are even and nonlabored. The patient is diminished in the bilateral bases. No rhonchi. No wheezes. No rales. CARDIOVASCULAR: Irregular rate and rhythm. No murmurs, rubs, or gallops. ABDOMEN: Soft. Nontender. Active bowel sounds. No guarding. No rigidity. No rebound. Negative Rovsing sign. No abdominal bruit auscultated. BACK: Full range of motion. No central spinous tenderness. No CVA tenderness. UPPER EXTREMITIES: Bilateral upper extremities with full range of motion. Strength normal. Sensation intact. Palpable radial pulses. LOWER EXTREMITIES: Right Full range of motion. Strength normal. Sensation intact. Palpable pedal pulses. No swelling of lower extremities. Left BKA. skin intact. NEUROLOGIC: Alert and oriented to person, place, and time. Cranial nerves 2 through 12 intact. PSYCH: Normal affect. No suicidal or homicidal ideation. LABS AND DIAGNOSTICS: EKG: AFib, rate controlled, right bundle branch block. Troponin 0.033. CK-MB 3.1. Chest x-ray is negative for any acute process. The patient's glucose was 414. VBG: PH of 7.35, CO2 of 35.9, bicarb of 19.8, beta-hydroxybutyrate 0.23. Sodium 134, potassium 3.9, chloride 105, CO2 of 19, BUN 35, creatinine 1.94, calcium 7.7, T-bilirubin 0.2, alkaline phosphatase 113, AST 7, ALT 8. WBC is 9.6, hemoglobin 12, hematocrit 35.2, platelets 181. UA: 4+ bacteria, 500 leukocytes, WBCs greater than 50 protein and glucose. IMPRESSION AND PLAN: 1. Chest pain. We will admit the patient to telemetry for observation status. Expected length of stay less than 2 midnights. The patient presented for 2 weeks of right-sided chest pain. He presented tachycardic, heart rate 116, respirations were normal, O2 saturation was normal. EKG was AFib, rate controlled with right bundle branch block. Troponin was 0.033. The patient has a HEART score of 6 and a Wells score of 3, moderate risk. He has not been on his Eliquis or aspirin for some time ,at least 4 days, but possibly longer. He is also status post left BKA in July, discharged in August, and has not been ambulating much, reports transferring in wheelchair. The patient upon exam has persistent chest tightness and is tachycardic. We will trend troponins. We will continue aspirin and Nitro-Bid. We will check a TSH, fasting lipid, Mag, and BNP. The patient had an echo in July 2019. Ejection fraction was 40% to 45%. Left ventricular size was normal. Avis was akinetic. Right ventricle was normal size. Left atrium was normal size. Right atrium was normal size. Mild mitral regurgitation. Aortic leaflets are somewhat thickened and mild tricuspid regurgitation. We will place the patient on a heparin drip, cardiovascular protocol, or order a Cardiovascular consult. 2. Diabetes 2, uncontrolled. The patient is noncompliant with medication, presented with a blood glucose of 414, beta-hydroxybutyrate 0.23, gap was closed. The patient's home med seems to be 10 units of Lantus daily which he has not been noncompliant with. We will start the patient on a mild sliding scale. We will check Accu-Cheks a.c. and at bedtime. We will adjust insulin as needed. 3. Acute kidney injury. The patient presented with a creatinine of 1.94. Baseline appears to be 1.63 in September. We will give gentle IV fluid hydration and recheck level in a.m. 4. Urinary tract infection. The patient presented for generalizeed weakness. He denies any urinary symptoms. UA consistent with UTI, 4+ bacteria, 500 leukocytes, WBCs greater than 50. Urine culture is pending. We will treat with Rocephin IV piggyback. 5. Atrial fibrillation, rate controlled. The patient has a history of atrial fibrillation, at one point over this year was on Eliquis and aspirin, recently has not been taking his medications possibly secondary to his discharge from his left BKA a couple of months prior. Right now, the patient will be on heparin drip cardiovascular protocol for concern of possible PE. We will hold eliquis for now. 6. Hypertension. The patient takes metoprolol, digoxin, clonidine patch, and amlodipine. The patient presented hypertensive and the one SBP in the 150s. We will restart the patient's home medications once reconciled. 7. Hyperlipidemia. I do not see any home medications for this. We will check fasting lipid and determine whether or not to start a statin. 8. Congestive heart failure. The patient's chest x-ray was clear. No acute process. The patient has no swelling to the lower extremities. He is not short of breath. The patient had an echo in July 2019 and had an EF of 40% to 45%. 9. Tobacco abuse. The patient has a history of a pack per day of greater than 40 years. He has recently been trying to quit for the past 2 weeks. He is wearing a nicotine patch. We will continue his nicotine patch. We will genetic counselor on tobacco cessation. 10. Heparin drip. Cardiovascular protocol. No DVT prophylaxis. Give Protonix for GI prophylaxis. The patient is a full code. Discussed the case with Dr. Nolberto Strange. Job ID: [id number] MTDD
[2019-11-02] MEDS ORDERED: Sodium Chloride 0.9% 1,000 ML IV SCH (23:59)
[2019-11-03 00:18] VITALS: BMI 23.2
[2019-11-03] MEDS: traMADol HCl 50 MG TAB PO PRN (00:53)
[2019-11-03] MEDS: cefTRIAXone\\ROCEPHIN 1 GM in Sodium Chloride 0.9% 100 ML IVPB SCH ×2 (00:55→23:32)
[2019-11-03] MEDS: Nicotine 14 MG PATCH TD SCH ×2 (00:55→21:14)
[2019-11-03 01:49] LABS: Troponin I 0.028 ng/mL (< 0.028)
[2019-11-03] MEDS: Acetaminophen 325 MG TAB PO PRN (03:24)
[2019-11-03 04:41] LABS: #Basophils 0.1 thou/uL (0.0-0.2); #Eosinphils 0.2 thou/uL (0.0-0.7); #Lymphocytes 1.3 thou/uL (1.20-3.40); #Monocytes 0.6 thou/uL (0.11-0.59); #Neutrophils 5.1 thou/uL (1.40-6.50); %Basophils 0.9 % (0.0-1.0); %Monocytes 8.5 % (0.0-10.0); %Neutrophils 69.7 % (42.0-75.0); Hemoglobin 10.8 g/dL (14.0-18.0); Mean Corpuscular HGB CONC 33.5 g/dL (32.0-36.0); Mean Corpuscular Hemoglobin 28.5 pg (27.0-31.0); Mean Corpuscular Volume 85.1 fL (78.0-98.0); Mean Platelet Volume 11.3 fL (7.4-10.4); Platelet Count 172 thou/uL (130-400); RBC Distribution Width 14.6 % (11.5-14.5); Red Blood Cell (RBC) Count 3.78 mill/uL (4.70-6.10); White Blood Cell (WBC) Count 7.3 thou/uL (4.8-10.8)
[2019-11-03 05:16] LABS: Anion Gap 11 mmol/L (10-20); BUN (Urea Nitrogen) 36 mg/dL (8.4-25.7); Calc. Creatinine Clearance 42 mL/min (70-130); Calcium 7.8 mg/dL (7.8-10.44); Carbon Dioxide 19 mmol/L (22-29); Cardiac Risk 8.1 (Less than 4.5); Chloride 109 mmol/L (98-107); Cholesterol 137 mg/dl (< 200 Desired); Estimated GFR-MDRD 38; Glucose 364 mg/dL (70-105); HDL Cholesterol 17 mg/dL (>60 Neg Risk); LDL Cholesterol, Calculated 68 mg/dL; Magnesium 2.2 mg/dL (1.6-2.6); Potassium 3.8 mmol/L (3.5-5.1); Sodium 135 mmol/L (136-145); Triglycerides 260 mg/dL (Less than 150)
[2019-11-03] MEDS: HumaLOG 300 UNITS/3 ML VIAL SC PRN ×3 (06:06→21:00)
[2019-11-03] MEDS: Nitroglycerin 2% Ointment 1 INCH/1 GM Packet TOP SCH ×3 (08:16→23:32)
[2019-11-03] MEDS: Digoxin 0.125 MG TAB PO SCH (08:18)
[2019-11-03] MEDS: Aspirin 81 mg Enteric Coated Tablet PO SCH (08:18)
[2019-11-03] MEDS: Amlodipine 5 MG TAB PO SCH (08:19)
[2019-11-03] MEDS: Gabapentin 300 MG CAP PO SCH ×3 (08:19→20:43)
[2019-11-03] MEDS: Metoprolol Tartrate 25 MG TAB PO SCH ×2 (08:20→20:42)
[2019-11-03 09:39] LABS: Iron 53 ug/dL (65-175); Iron Binding Capacity, Total 213 mcg/dL (261-462)
[2019-11-03] MEDS ORDERED: Enoxaparin Sodium 60 MG/0.6 ML SYRINGE SC SCH (10:16)
[2019-11-03] MEDS ORDERED: Enoxaparin Sodium 80 MG/0.8 ML SYRINGE SC SCH (10:30)
--- NOTE | 2019-11-03 10:53 | CON ---
DATE OF CONSULTATION: 11/03/2019 PRIMARY FABRIC PATTERN GRADER: Dr. Tyrell Doshi at [facility]. REASON FOR CONSULTATION: Atrial fibrillation, chest pain, diabetes, peripheral vascular disease, renal insufficiency. HISTORY OF PRESENT ILLNESS: Mr. Green is a 59-year-old gentleman with multiple medical problems. He was admitted to the hospital recently with infection of the right lower extremity and associated poor blood flow and had to have below-knee amputation for this problem. The patient has also had some history of chest pain. He states he has had stress testing in the past. He does not tell me when, but "had a heart attack when I had a stress test." He declines further stress testing. He states he has occasional and intermittent chest pressure and tightness. The patient has a long history of smoking. He said he stopped smoking 5 days ago. The patient was noted to have very heavy tobacco intake noted on previous admission. The patient states he is down to 1 pack cigarettes per day, but stopped 5 days ago, he said. The patient has history of severe peripheral vascular disease, diabetes, smoking, and hypertriglyceridemia. MEDICATIONS: Apparently, the patient stopped taking the medicines at least a few days prior to admission. It is listed as digoxin, amlodipine, clonidine patch, gabapentin, metoprolol, nicotine patch, tamsulosin, but it is really not clear what he is actually taking. Also listed on his list was Eliquis, but apparently has been taking that either. ALLERGIES: HYDROCODONE AND METFORMIN. SOCIAL HISTORY: Heavy tobacco history. REVIEW OF SYSTEMS: CONSTITUTIONAL: Positive for weakness and fatigue. VISION: No changes. HEARING: No changes. PULMONARY: Positive for shortness of breath. CARDIAC: As outlined above. Intermittent chest pressure. GASTROINTESTINAL: No nausea, vomiting, or diarrhea. SKIN: No rashes. NEUROLOGIC: No unilateral weakness or numbness. Bruising, he does bruise easily. PHYSICAL EXAMINATION: GENERAL: This is a pleasant 59-year-old gentleman. He looks much older than his chronologic age of 59. VITAL SIGNS: His blood pressure is 106/65; pulse is in the 90s, it is irregular. HEENT: Eyes; sclerae are nonicteric. Mouth; mucous membranes moist. NECK: Supple. No lymphadenopathy. LUNGS: Few rhonchi. No wheezing. CARDIAC: Irregularly irregular. No murmur, rub, or gallop. Heart sounds somewhat distant. ABDOMEN: Soft and nontender. EXTREMITIES: On the left, he has a previous below-knee amputation. Pulses, I do not feel femoral pulse on the left or popliteal pulse on the left. On the right, I feel a faint femoral pulse. I do not feel pulses below that. PERTINENT LABORATORY DATA: His creatinine yesterday was 1.94, now it is 1.86. Troponin indeterminate at 0.028, 0.033. The patient's LDL was 68, triglyceride 260. EKG, sinus rhythm, looks like an old anterior infarct and an old inferior infarct. ASSESSMENT: 1. Probably multivessel coronary artery disease. 2. Right bundle-branch block. 3. Peripheral vascular disease, severe. 4. Diabetes, longstanding. 5. Tobacco dependence. He has not smoked, but for 5 days, he tells me, but has a long smoking history and currently on a nicotine patch, which he says he actually has to have. 6. Renal failure, stage 3, but at times he has been stage 4. 7. Previous below-knee amputation. 8. History of noncompliance with medication. At this time, the patient's prognosis long-term is likely guarded to poor. We will repeat echocardiogram to re-evaluate left ventricular function. The ejection fraction most recently is 40% to 45%, but it looks like he has had extensive infarcts on his EKG. I discussed briefly cardiac catheterization, but there would be a significant risk in terms of the vascular system. We will need to consider a radial artery catheterization, certainly has multivessel coronary artery disease. If so, he would be certainly a suboptimal candidate for bypass surgery in view of his multiple medical problems including renal insufficiency, depressed left ventricular function, continued smoking and diabetes. The patient at this point is not yet agreed to catheterization. He would need to understand that there is significant risk involved. At this time, we will do the followin. Change from heparin to Lovenox. 2. Repeat echocardiogram. 3. Continue aspirin. 4. We will add statin. 5. We will follow with you. Long-term prognosis is guarded in this gentleman. Job ID: [id number]
[2019-11-03] MEDS ORDERED: Dextrose 50% Abboject 50 ML SYRINGE SLOW IVP PRN (18:01)
[2019-11-03] MEDS ORDERED: Dextrose 5% in Water 1,000 ML IV PRN (18:01)
--- NOTE | 2019-11-03 18:05 | PDOC.HOSPP ---
- Subjective Encounter Date: 11/03/19 Subjective: pt seen on f/u for chest pain, refers still has some pressure over chest, / denies sob palpitations or diaphoresis. nurse refers to me that during night patient was saying he was going to kill himself, sitter was placed bedside. during my evaluation patient said he just wanted to - Objective Vital Signs & Weight: Vital Signs (12 hours) Temp Pulse Pulse Pulse Resp BP BP 11/03/19 16:30 69 16 11/03/19 15:13 96.8 F L 73 14 11/03/19 11:01 97.4 F L 76 16 11/03/19 09:50 68 16 11/03/19 09:28 61 67 113/65 106/65 11/03/19 07:40 98.0 F 95 20 BP Pulse Ox 11/03/19 16:30 11/03/19 15:13 121/58 L 99 11/03/19 11:01 115/69 96 11/03/19 09:50 11/03/19 09:28 11/03/19 07:40 134/75 98 Weight Weight 152 lb 11.2 oz I&O: 11/02/19 11/03/19 11/04/19 06:59 06:59 06:59 Intake Total 0 960 Output Total 700 550 Balance -700 410 Result Diagrams: 11/03/19 04:05 11/03/19 04:05 Additional Labs: Accuchecks 11/03/19 11/03/19 11/02/19 10:50 05:55 19:50 POC Glucose 188 H 331 H 334 H Hospitalist ROS - Review of Systems All other systems reviewed; all pertinent +/- noted in HPI/Subj - Medication Medications: Active Medications Generic Name Dose Route Start Last Admin Trade Name Freq PRN Reason Stop Dose Admin Acetaminophen 650 mg 11/02/19 21:38 11/03/19 03:24 Tylenol PO 650 mg Q4H PRN Administration Headache/Fever/Mild Pain (1-3) Albuterol/Ipratropium 3 ml 11/03/19 01:00 11/03/19 16:30 Duoneb NEB 3 ml [id number] RONI Administration Amlodipine Besylate 5 mg 11/03/19 09:00 11/03/19 08:19 Norvasc PO 5 mg DAILY RONI Administration Aspirin 81 mg 11/03/19 09:00 11/03/19 08:18 Ecotrin PO 81 mg DAILY RONI Administration Digoxin 0.125 mg 11/03/19 09:00 11/03/19 08:18 Lanoxin PO 0.125 mg DAILY RONI Administration Gabapentin 300 mg 11/03/19 09:00 11/03/19 15:18 Neurontin PO 300 mg TID RONI Administration Ceftriaxone Sodium 1 gm/ 100 mls @ 200 mls/hr 11/02/19 22:30 11/03/19 00:55 Sodium Chloride IVPB 100 mls Q24HR RONI Administration Insulin Human Lispro 0 units 11/02/19 21:34 11/03/19 17:28 Humalog SC 4 unit .MILD SLIDING SCALE PRN Administration Mild Correctional Scale Metoprolol Tartrate 25 mg 11/03/19 09:00 11/03/19 08:20 Lopressor PO 11/03/19 23:59 25 mg BID RONI Administration Nicotine 14 mg 11/02/19 22:00 11/03/19 00:55 Nicoderm Patch TD 14 mg Q24HR RONI Administration Nitroglycerin 0.5 inch 11/03/19 08:00 11/03/19 15:18 Nitro-Bid 2% Ointment TOP 0.5 inch 0800,1600,2359 RONI Administration Pantoprazole Sodium 40 mg 11/03/19 09:00 11/03/19 08:17 Protonix PO 40 mg DAILY RONI Administration Sodium Chloride 10 ml 11/03/19 09:00 11/03/19 08:20 Flush - Normal Saline IVF 10 ml Q12HR RONI Administration Tramadol HCl 50 mg 11/02/19 21:42 11/03/19 00:53 Ultram PO 50 mg Q6H PRN Administration Moderate Pain (4-6) - Exam General Appearance: NAD, awake alert, ill appearing Eye: PERRL, anicteric sclera ENT: normocephalic atraumatic, no oropharyngeal lesions Neck: supple, symmetric, no JVD Heart: RRR, no murmur, no gallops Respiratory: CTAB, no wheezes Gastrointestinal: soft, non-tender Extremities: no cyanosis, no clubbing Skin: normal turgor, no lesions Neurological: cranial nerve grossly intact, normal sensation to touch Musculoskeletal: normal tone, normal strength Psychiatric: normal affect, normal behavior Hosp A/P (1) Chest pain Code(s): R07.9 - CHEST PAIN, UNSPECIFIED Status: Acute (2) Anemia in chronic kidney disease Code(s): N18.9 - CHRONIC KIDNEY DISEASE, UNSPECIFIED; D63.1 - ANEMIA IN CHRONIC KIDNEY DISEASE Status: Acute (3) Cardiomyopathy Code(s): I42.9 - CARDIOMYOPATHY, UNSPECIFIED Status: Acute Qualifiers: Cardiomyopathy type: unspecified Qualified Code(s): I42.9 - Cardiomyopathy , unspecified (4) DM type 2 causing CKD stage 4 Code(s): E11.22 - TYPE 2 DIABETES MELLITUS W DIABETIC CHRONIC KIDNEY DISEASE; N18.4 - CHRONIC KIDNEY DISEASE, STAGE 4 (SEVERE) Status: Acute Qualifiers: Diabetes mellitus superintendent terminal insulin use: with superintendent terminal use Qualified Code( s): E11.22 - Type 2 diabetes mellitus with diabetic chronic kidney disease; N18.4 - Chronic kidney disease, stage 4 (severe); Z79.4 - MCFP (current) use of insulin (5) Elevated troponin Code(s): R74.8 - ABNORMAL LEVELS OF OTHER SERUM ENZYMES Status: Acute (6) CHF (congestive heart failure) Code(s): I50.9 - HEART FAILURE, UNSPECIFIED Status: Chronic (7) HLD (hyperlipidemia) Code(s): E78.5 - HYPERLIPIDEMIA, UNSPECIFIED Status: Chronic (8) HTN (hypertension) Code(s): I10 - ESSENTIAL (PRIMARY) HYPERTENSION Status: Chronic Qualifiers: Hypertension type: essential hypertension Qualified Code(s): I10 - Essential (primary) hypertension (9) UTI (urinary tract infection) Status: Acute (10) Suicidal behavior Code(s): R46.89 - OTHER SYMPTOMS AND SIGNS INVOLVING APPEARANCE AND BEHAVIOR Status: Acute - Plan - cardiology consulted following recomendations - in optimal cad medication with statin beta mo antiplatelet, unable to give acei due to kindy disease - had en episode of refering wanting to kill himself during the sphych, was consulted - on rocephin for uti, cultures results pending -fasting high will add long acting insulin, continue with accu checks and ss - cardio will recommended repeat echo, pt will likely require [facility], will follow
[2019-11-03] MEDS: Tamsulosin HCl 0.4 MG CAP PO SCH (20:42)
[2019-11-03] MEDS: Enoxaparin Sodium 80 MG/0.8 ML SYRINGE SC SCH (20:42)
[2019-11-03] MEDS: Rosuvastatin 20 MG TAB PO SCH (20:43)
[2019-11-03] MEDS ORDERED: Insulin Glargine 10 UNITS in Pre-Filled Syringe 1 EACH SC SCH (21:00)
[2019-11-04 04:36] LABS: Anion Gap 14 mmol/L (10-20); BUN (Urea Nitrogen) 39 mg/dL (8.4-25.7); Calc. Creatinine Clearance 0 mL/min (70-130); Carbon Dioxide 18 mmol/L (22-29); Chloride 108 mmol/L (98-107); Estimated GFR-MDRD 28; Glucose 397 mg/dL (70-105); Potassium 4.4 mmol/L (3.5-5.1); Sodium 136 mmol/L (136-145)
[2019-11-04] MEDS: HumaLOG 300 UNITS/3 ML VIAL SC PRN ×3 (06:17→17:48)
[2019-11-04 06:19] LABS: Band 2 % (5-11); Eosinophils 1 % (0-10); Hemoglobin 10.6 g/dL (14.0-18.0); Lymphocytes 14 % (21-51); MDiff Complete? YES; Mean Corpuscular HGB CONC 33.4 g/dL (32.0-36.0); Mean Corpuscular Hemoglobin 28.9 pg (27.0-31.0); Mean Corpuscular Volume 86.6 fL (78.0-98.0); Mean Platelet Volume 11.1 fL (7.4-10.4); Monocytes 7 % (0-10); Neutrophil 76 % (42-75); Platelet Count 178 thou/uL (130-400); Platelet Morphology Comment Appears Adequate; RBC Distribution Width 14.6 % (11.5-14.5); Red Blood Cell (RBC) Count 3.68 mill/uL (4.70-6.10); White Blood Cell (WBC) Count 8.8 thou/uL (4.8-10.8)
[2019-11-04] MEDS: Enoxaparin Sodium 80 MG/0.8 ML SYRINGE SC SCH (08:39)
[2019-11-04] MEDS: Amlodipine 5 MG TAB PO SCH (08:39)
[2019-11-04] MEDS: Nitroglycerin 2% Ointment 1 INCH/1 GM Packet TOP SCH ×2 (08:39→15:57)
[2019-11-04] MEDS: Aspirin 81 mg Enteric Coated Tablet PO SCH (08:40)
[2019-11-04] MEDS: Gabapentin 300 MG CAP PO SCH ×3 (08:40→21:23)
[2019-11-04] MEDS: Digoxin 0.125 MG TAB PO SCH (08:40)
--- NOTE | 2019-11-04 10:22 | PDOC.HOSPP ---
- Subjective Encounter Date: 11/04/19 Encounter Time: 10:10 Subjective: f/u for advanced CAD with recommendations for med mgmt. Nursing reports pt angry and threatening to leave AMA. - Objective Vital Signs & Weight: Vital Signs (12 hours) Temp Pulse Resp BP Pulse Ox 11/04/19 07:15 97.6 F 89 20 133/77 96 11/04/19 07:00 81 28 H 11/04/19 05:17 98.0 F 98 15 131/64 95 11/04/19 01:35 100 11/04/19 01:30 87 8 L 100 Weight Weight 2.442 oz I&O: 11/03/19 11/04/19 11/05/19 06:59 06:59 06:59 Intake Total 0 1510 Output Total 700 1200 Balance -700 310 Result Diagrams: 11/04/19 04:02 11/04/19 04:02 Additional Labs: Accuchecks 11/04/19 11/03/19 11/03/19 06:00 20:24 16:53 POC Glucose 435 H 300 H 280 H 11/03/19 11/03/19 10:50 05:55 POC Glucose 188 H 331 H Microbiology 08/09/19 19:15 Sputum Respiratory Culture - Final 08/03/19 21:09 Venous blood - Left Arm Blood Culture - Final NO GROWTH IN 5 DAYS 08/03/19 21:05 Venous blood - Right Hand Blood Culture - Final NO GROWTH IN 5 DAYS 08/08/19 11:36 Foot - Abscess Bacterial Culture - Preliminary 08/08/19 11:36 Foot - Abscess Anaerobic Culture - Preliminary Proteus penneri Proteus mirabilis 08/08/19 11:31 Heel - Ulcer Bacterial Culture - Preliminary 08/08/19 11:31 Heel - Ulcer Anaerobic Culture - Preliminary Proteus penneri 08/08/19 11:26 Heel - Left Bacterial Culture - Preliminary 08/08/19 11:26 Heel - Left Anaerobic Culture - Preliminary Proteus mirabilis Laboratory Tests 08/07/19 08/09/19 08/09/19 05:02 04:54 05:49 WBC 15.8 H 30.0 H Neutrophils % (Manual) 88 H 92 H Creatinine 2.53 H Magnesium Iron TIBC B-Natriuretic Peptide TSH 3rd Generation 08/09/19 08/10/19 08/10/19 13:53 03:05 03:05 WBC 17.8 H Neutrophils % (Manual) 91 H Creatinine 2.62 H 2.69 H Magnesium Iron TIBC B-Natriuretic Peptide TSH 3rd Generation 08/11/19 08/11/19 08/12/19 03:48 03:48 04:20 WBC 15.6 H Neutrophils % (Manual) 89 H 83 H Creatinine 3.09 H Magnesium Iron TIBC B-Natriuretic Peptide TSH 3rd Generation 08/22/19 11/02/19 11/02/19 23:45 17:17 17:17 WBC Neutrophils % (Manual) Creatinine 1.94 H Magnesium 1.6 Iron TIBC B-Natriuretic Peptide 1320.7 H TSH 3rd Generation 11/02/19 11/02/19 11/03/19 17:17 17:17 04:05 WBC Neutrophils % (Manual) Creatinine 1.86 H Magnesium 2.2 Iron TIBC B-Natriuretic Peptide 401.2 H TSH 3rd Generation 2.8345 11/03/19 09:04 WBC Neutrophils % (Manual) Creatinine Magnesium Iron 53 L TIBC 213 L B-Natriuretic Peptide TSH 3rd Generation Radiology Reviewed by me: Yes (Echo - EF 35-40%) EKG Reviewed by me: Yes (Tele - A-fib in 's) Hospitalist ROS - Medication Medications: Active Medications Generic Name Dose Route Start Last Admin Trade Name Freq PRN Reason Stop Dose Admin Acetaminophen 650 mg 11/02/19 21:38 11/03/19 03:24 Tylenol PO 650 mg Q4H PRN Administration Headache/Fever/Mild Pain (1-3) Albuterol/Ipratropium 3 ml 11/03/19 01:00 11/04/19 07:00 Duoneb NEB 3 ml [id number] RONI Administration Amlodipine Besylate 5 mg 11/03/19 09:00 11/04/19 08:39 Norvasc PO 5 mg DAILY RONI Administration Aspirin 81 mg 11/03/19 09:00 11/04/19 08:40 Ecotrin PO 81 mg DAILY RONI Administration Gabapentin 300 mg 11/03/19 09:00 11/04/19 08:40 Neurontin PO 300 mg TID RONI Administration Ceftriaxone Sodium 1 gm/ 100 mls @ 200 mls/hr 11/02/19 22:30 11/03/19 23:32 Sodium Chloride IVPB 100 mls Q24HR RONI Administration Insulin Human Lispro 0 units 06/18/20 21:34 11/04/19 06:17 Humalog SC 6 unit .MILD SLIDING SCALE PRN Administration Mild Correctional Scale Insulin Human Lispro 0 units 11/02/19 21:34 11/03/19 21:00 Humalog SC 3 unit .BEDTIME SLIDING SC PRN Administration Bedtime Correctional Scale Metoprolol Succinate 50 mg 11/04/19 09:00 11/04/19 08:40 Toprol Xl PO 50 mg DAILY RONI Administration Nicotine 14 mg 11/02/19 22:00 11/03/19 21:14 Nicoderm Patch TD 14 mg Q24HR RONI Administration Nitroglycerin 0.5 inch 11/03/19 08:00 11/04/19 08:39 Nitro-Bid 2% Ointment TOP 0.5 inch 0800,1600,2359 RONI Administration Pantoprazole Sodium 40 mg 11/03/19 09:00 11/04/19 08:39 Protonix PO 40 mg DAILY RONI Administration Rosuvastatin Calcium 20 mg 11/03/19 21:00 11/03/19 20:43 Crestor PO 20 mg HS RONI Administration Sodium Chloride 10 ml 11/03/19 09:00 11/04/19 08:40 Flush - Normal Saline IVF 10 ml Q12HR RONI Administration Tamsulosin HCl 0.4 mg 11/03/19 21:00 11/03/19 20:42 Flomax PO 0.4 mg HS RONI Administration Tramadol HCl 50 mg 11/02/19 21:42 11/03/19 00:53 Ultram PO 50 mg Q6H PRN Administration Moderate Pain (4-6) - Exam General Appearance: NAD Eye: PERRL, anicteric sclera ENT: normocephalic atraumatic, no oropharyngeal lesions Neck: supple, symmetric, no JVD, no thyromegaly, no lymphadenopathy Heart: no gallops, no rubs, irregular, diminshed peripheral pulses, II/IV Respiratory: CTAB, no wheezes, no rales, no ronchi, normal chest expansion Gastrointestinal: soft, non-tender, non-distended, normal bowel sounds, no palpable masses, no guarding Extremities: no cyanosis Extremities - other findings: L BKA Skin: normal turgor Neurological: cranial nerve grossly intact, no new deficit Musculoskeletal: normal tone, generalized weakness Psychiatric: A&O x 3, flat affect Hosp A/P (1) Type [address] elevation Code(s): I21.A1 - MYOCARDIAL INFARCTION TYPE 2 Status: Acute Plan: Severe multi-vessel disease, medical mgmt, continue Lovenox/ASA/Crestor/ Metoprolol (2) Suicidal behavior Code(s): R46.89 - OTHER SYMPTOMS AND SIGNS INVOLVING APPEARANCE AND BEHAVIOR Status: Acute Plan: MHMR consult pending, sitter 1:1 (3) Acute renal failure superimposed on stage 4 chronic kidney disease Code(s): N17.9 - ACUTE KIDNEY FAILURE, UNSPECIFIED; N18.4 - CHRONIC KIDNEY DISEASE, STAGE 4 (SEVERE) Status: Acute Plan: Multifactorial, avoid nephrotoxic meds and limit contrast exposure (4) Cardiomyopathy Code(s): I42.9 - CARDIOMYOPATHY, UNSPECIFIED Status: Chronic Qualifiers: Cardiomyopathy type: unspecified Qualified Code(s): I42.9 - Cardiomyopathy , unspecified Plan: Likely ischemic CM, medical mgmt currently, non-compliance an issue (5) DM type 2 causing CKD stage 4 Code(s): E11.22 - TYPE 2 DIABETES MELLITUS W DIABETIC CHRONIC KIDNEY DISEASE; N18.4 - CHRONIC KIDNEY DISEASE, STAGE 4 (SEVERE) Status: Acute Qualifiers: Diabetes mellitus senior living insulin use: with sales trader use Qualified Code( s): E11.22 - Type 2 diabetes mellitus with diabetic chronic kidney disease; N18.4 - Chronic kidney disease, stage 4 (severe); Z79.4 - certified hyperbaric technician (current) use of insulin Plan: Increase Glargine 15u HS, ISS (6) Peripheral vascular disease Code(s): I73.9 - PERIPHERAL VASCULAR DISEASE, UNSPECIFIED Status: Acute (7) Physical deconditioning Code(s): R53.81 - OTHER MALAISE Status: Chronic Plan: PT for mobilization (8) Tobacco abuse Code(s): Z72.0 - TOBACCO USE Status: Chronic Plan: Nicotine patch daily - Plan continue antibiotics, 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
--- NOTE | 2019-11-04 10:23 | PRG ---
DATE OF SERVICE: 11/04/2019 SUBJECTIVE: Mr. Green states that "I want to ." He states he is still having intermittent chest pain. He does not give a very good description of what it feels like, "just hurts." The patient is not short of breath. OBJECTIVE: VITAL SIGNS: Blood pressure 133/77; pulse is in the 80s, it is irregular; there is atrial fibrillation on the monitor. LUNGS: Clear. CARDIAC: Irregular. ABDOMEN: Soft and nontender. EXTREMITIES: There is no edema. He has previous left below-knee amputation. LABORATORY DATA: Creatinine is higher at 2.4. ASSESSMENT: 1. Suicidal ideation. 2. Renal failure, stage 4. 3. Underlying coronary artery disease. 4. Congestive heart failure, systolic, chronic ejection fraction 35% to 40%. 5. Atrial fibrillation. 6. Peripheral vascular disease. 7. History of noncompliance. 8. Tobacco dependence. At this point, the patient has a very poor long-term prognosis with this combination of problems. The patient is found to have severely depressed left ventricular function, almost certainly has multi-vessel coronary disease, long history of noncompliance. He also has a Palacio catheter in place. At the present time, we will do the followin. Reduce enoxaparin to once a day in view of renal failure. 2. Continue beta-blockers and aspirin. 3. Continue statins. Prognosis is very poor unfortunately. Options appear limited as he is not indicating he wishes to have any procedures done. Any procedures will be extremely high risk with the above-listed problems, especially the renal failure, exposure to contrast, and would be at high risk of causing acute renal failure, requiring hemodialysis. It is unclear whether he would participate with his treatment. We will continue to follow with you. He has very poor to guarded prognosis. Job ID: [id number]
[2019-11-04 11:14] LABS: Hemoglobin 10.2 g/dL (14.0-18.0); Platelet Count 168 thou/uL (130-400)
[2019-11-04] MEDS ORDERED: Insulin Glargine 15 UNITS in Pre-Filled Syringe 1 EACH SC SCH (21:00)
[2019-11-04] MEDS: Tamsulosin HCl 0.4 MG CAP PO SCH (21:23)
[2019-11-04] MEDS: Rosuvastatin 20 MG TAB PO SCH (21:23)
[2019-11-04] MEDS: Acetaminophen 325 MG TAB PO PRN (21:24)
[2019-11-04] MEDS: traMADol HCl 50 MG TAB PO PRN (21:24)
[2019-11-04] MEDS: cefTRIAXone\\ROCEPHIN 1 GM in Sodium Chloride 0.9% 100 ML IVPB SCH (21:30)
[2019-11-04] MEDS: Nicotine 14 MG PATCH TD SCH (21:30)
[2019-11-04 22:37] LABS: Hemoglobin 10.1 g/dL (14.0-18.0); Platelet Count 173 thou/uL (130-400)
[2019-11-05] MEDS: Nitroglycerin 2% Ointment 1 INCH/1 GM Packet TOP SCH ×5 (01:28→23:23)
[2019-11-05 04:33] LABS: Anion Gap 13 mmol/L (10-20); BUN (Urea Nitrogen) 39 mg/dL (8.4-25.7); Calc. Creatinine Clearance 0 mL/min (70-130); Carbon Dioxide 20 mmol/L (22-29); Chloride 108 mmol/L (98-107); Estimated GFR-MDRD 29; Glucose 262 mg/dL (70-105); Potassium 4.6 mmol/L (3.5-5.1); Sodium 136 mmol/L (136-145)
[2019-11-05] MEDS: HumaLOG 300 UNITS/3 ML VIAL SC PRN ×4 (06:36→21:47)
[2019-11-05] MEDS: Gabapentin 300 MG CAP PO SCH ×4 (08:36→21:47)
[2019-11-05] MEDS: Amlodipine 5 MG TAB PO SCH (08:37)
[2019-11-05] MEDS: Aspirin 81 mg Enteric Coated Tablet PO SCH (08:37)
[2019-11-05] MEDS ORDERED: Enoxaparin Sodium 80 MG/0.8 ML SYRINGE SC SCH (09:00)
--- NOTE | 2019-11-05 09:15 | PDOC.HOSPP ---
- Subjective Encounter Date: 11/05/19 Encounter Time: 09:05 Subjective: f/u for advanced CAD with recommendations for med mgmt per Cardiology. Pt making suicidal/homicidal threats per nursing pending [facility] evaluation today. - Objective Vital Signs & Weight: Vital Signs (12 hours) Temp Pulse Resp BP Pulse Ox 11/05/19 07:49 73 16 11/05/19 07:18 98.1 F 98 18 166/60 H 97 11/05/19 03:19 98.3 F 96 18 139/73 99 11/05/19 00:56 94 10 L 100 Weight Weight 157 lb 3.2 oz I&O: 11/04/19 11/05/19 11/06/19 06:59 06:59 06:59 Intake Total 1510 1800 Output Total 1200 1820 Balance 310 -20 Result Diagrams: 11/04/19 22:23 11/05/19 03:37 Additional Labs: Accuchecks 11/05/19 11/04/19 11/04/19 05:42 20:45 17:33 POC Glucose 247 H 223 H 211 H 11/04/19 10:24 POC Glucose 350 H Microbiology 08/09/19 19:15 Sputum Respiratory Culture - Final 08/03/19 21:09 Venous blood - Left Arm Blood Culture - Final NO GROWTH IN 5 DAYS 08/03/19 21:05 Venous blood - Right Hand Blood Culture - Final NO GROWTH IN 5 DAYS 08/08/19 11:36 Foot - Abscess Bacterial Culture - Preliminary 08/08/19 11:36 Foot - Abscess Anaerobic Culture - Preliminary Proteus penneri Proteus mirabilis 08/08/19 11:31 Heel - Ulcer Bacterial Culture - Preliminary 08/08/19 11:31 Heel - Ulcer Anaerobic Culture - Preliminary Proteus penneri 08/08/19 11:26 Heel - Left Bacterial Culture - Preliminary 08/08/19 11:26 Heel - Left Anaerobic Culture - Preliminary Proteus mirabilis Laboratory Tests 08/07/19 08/09/19 08/09/19 05:02 04:54 05:49 WBC 15.8 H 30.0 H Neutrophils % (Manual) 88 H 92 H Creatinine 2.53 H Magnesium Iron TIBC B-Natriuretic Peptide TSH 3rd Generation 08/09/19 08/10/19 08/10/19 13:53 03:05 03:05 WBC 17.8 H Neutrophils % (Manual) 91 H Creatinine 2.62 H 2.69 H Magnesium Iron TIBC B-Natriuretic Peptide TSH 3rd Generation 08/11/19 08/11/19 08/12/19 03:48 03:48 04:20 WBC 15.6 H Neutrophils % (Manual) 89 H 83 H Creatinine 3.09 H Magnesium Iron TIBC B-Natriuretic Peptide TSH 3rd Generation 08/22/19 11/02/19 11/02/19 23:45 17:17 17:17 WBC Neutrophils % (Manual) Creatinine 1.94 H Magnesium 1.6 Iron TIBC B-Natriuretic Peptide 1320.7 H TSH 3rd Generation 11/02/19 11/02/19 11/03/19 17:17 17:17 04:05 WBC Neutrophils % (Manual) Creatinine 1.86 H Magnesium 2.2 Iron TIBC B-Natriuretic Peptide 401.2 H TSH 3rd Generation 2.8345 11/03/19 09:04 WBC Neutrophils % (Manual) Creatinine Magnesium Iron 53 L TIBC 213 L B-Natriuretic Peptide TSH 3rd Generation EKG Reviewed by me: Yes (Tele - A-fib in 's) Hospitalist ROS - Medication Medications: Active Medications Generic Name Dose Route Start Last Admin Trade Name Freq PRN Reason Stop Dose Admin Acetaminophen 650 mg 11/02/19 21:38 11/04/19 21:24 Tylenol PO 650 mg Q4H PRN Administration Headache/Fever/Mild Pain (1-3) Albuterol/Ipratropium 3 ml 11/03/19 01:00 11/05/19 07:49 Duoneb NEB 3 ml [id number] RONI Administration Amlodipine Besylate 5 mg 11/03/19 09:00 11/05/19 08:37 Norvasc PO 5 mg DAILY RONI Administration Aspirin 81 mg 11/03/19 09:00 11/05/19 08:37 Ecotrin PO 81 mg DAILY RONI Administration Calcium Carbonate 1,000 mg 11/02/19 21:38 11/04/19 21:23 Tums PO 1,000 mg Q4H PRN Administration Heartburn or Indigestion Enoxaparin Sodium 70 mg 11/05/19 09:00 11/05/19 08:36 Lovenox SC 70 mg 0900 RONI Administration Gabapentin 300 mg 11/03/19 09:00 11/05/19 08:36 Neurontin PO 300 mg TID RONI Administration Ceftriaxone Sodium 1 gm/ 100 mls @ 200 mls/hr 11/02/19 22:30 11/04/19 21:30 Sodium Chloride IVPB 100 mls Q24HR RONI Administration Insulin Glargine 15 units/ 0.15 mls @ 0.1 mls/hr 11/04/19 21:00 11/04/19 21: 24 Miscellaneous Medication SC 0.15 mls HS RONI Administration Insulin Human Lispro 0 units 11/02/19 21:34 11/05/19 06:36 Humalog SC 3 unit .MILD SLIDING SCALE PRN Administration Mild Correctional Scale Insulin Human Lispro 0 units 11/02/19 21:34 11/03/19 21:00 Humalog SC 3 unit .BEDTIME SLIDING SC PRN Administration Bedtime Correctional Scale Metoprolol Succinate 50 mg 11/04/19 09:00 11/05/19 08:36 Toprol Xl PO 50 mg DAILY RONI Administration Nicotine 14 mg 11/02/19 22:00 11/04/19 21:30 Nicoderm Patch TD Not Given Q24HR RONI Nitroglycerin 0.5 inch 11/03/19 08:00 11/05/19 08:37 Nitro-Bid 2% Ointment TOP 0.5 inch 0800,1600,2359 RONI Administration Pantoprazole Sodium 40 mg 11/03/19 09:00 11/05/19 08:36 Protonix PO 40 mg DAILY RONI Administration Rosuvastatin Calcium 20 mg 11/03/19 21:00 11/04/19 21:23 Crestor PO 20 mg HS RONI Administration Sodium Chloride 10 ml 11/03/19 09:00 11/05/19 08:42 Flush - Normal Saline IVF 10 ml Q12HR RONI Administration Tamsulosin HCl 0.4 mg 11/03/19 21:00 11/04/19 21:23 Flomax PO 0.4 mg HS RONI Administration Tramadol HCl 50 mg 11/02/19 21:42 11/04/19 21:24 Ultram PO 50 mg Q6H PRN Administration Moderate Pain (4-6) - Exam General Appearance: NAD, awake alert Eye: PERRL, anicteric sclera ENT: normocephalic atraumatic, no oropharyngeal lesions Neck: supple, symmetric, no JVD, no thyromegaly, no lymphadenopathy Heart: no gallops, no rubs, irregular, diminshed peripheral pulses Respiratory: CTAB, no wheezes, no rales, no ronchi, normal chest expansion, no tachypnea Gastrointestinal: soft, non-tender, non-distended, normal bowel sounds, no palpable masses Extremities: no cyanosis, no clubbing Extremities - other findings: L BKA Skin: normal turgor Neurological: cranial nerve grossly intact, no new deficit Musculoskeletal: normal tone, generalized weakness Psychiatric: A&O x 3, flat affect Hosp A/P (1) Type [address] elevation Code(s): I21.A1 - MYOCARDIAL INFARCTION TYPE 2 Status: Acute Plan: Med mgmt currently, no recommendations for acute intervention (2) Suicidal behavior Code(s): R46.89 - OTHER SYMPTOMS AND SIGNS INVOLVING APPEARANCE AND BEHAVIOR Status: Acute Plan: [facility] evaluation today, sitter for 1:1 (3) Acute renal failure superimposed on stage 4 chronic kidney disease Code(s): N17.9 - ACUTE KIDNEY FAILURE, UNSPECIFIED; N18.4 - CHRONIC KIDNEY DISEASE, STAGE 4 (SEVERE) Status: Acute Plan: Avoid nephrotoxic meds and limit contrast exposure, likely near baseline renal function (4) Cardiomyopathy Code(s): I42.9 - CARDIOMYOPATHY, UNSPECIFIED Status: Chronic Qualifiers: Cardiomyopathy type: unspecified Qualified Code(s): I42.9 - Cardiomyopathy , unspecified Plan: EF 35-40% (5) DM type 2 causing CKD stage 4 Code(s): E11.22 - TYPE 2 DIABETES MELLITUS W DIABETIC CHRONIC KIDNEY DISEASE; N18.4 - CHRONIC KIDNEY DISEASE, STAGE 4 (SEVERE) Status: Acute Qualifiers: Diabetes mellitus remote computer terminal operator insulin use: with remote computer terminal operator use Qualified Code( s): E11.22 - Type 2 diabetes mellitus with diabetic chronic kidney disease; N18.4 - Chronic kidney disease, stage 4 (severe); Z79.4 - remote computer terminal operator (current) use of insulin (6) Peripheral vascular disease Code(s): I73.9 - PERIPHERAL VASCULAR DISEASE, UNSPECIFIED Status: Acute (7) Physical deconditioning Code(s): R53.81 - OTHER MALAISE Status: Chronic Plan: PT for mobilization (8) Tobacco abuse Code(s): Z72.0 - TOBACCO USE Status: Chronic Plan: Tobacco cessation resources - Plan continue antibiotics, PT/OT, 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
[2019-11-05] MEDS: traMADol HCl 50 MG TAB PO PRN (17:47)
[2019-11-05] MEDS: Nicotine 14 MG PATCH TD SCH (17:48)
[2019-11-05] MEDS ORDERED: Insulin Glargine 20 UNITS in Pre-Filled Syringe 1 EACH SC SCH (21:00)
[2019-11-05 21:44] VITALS: BP 133/80; TEMP 98.5
[2019-11-05] MEDS: Tamsulosin HCl 0.4 MG CAP PO SCH (21:46)
[2019-11-05] MEDS: Rosuvastatin 20 MG TAB PO SCH (21:47)
[2019-11-05] MEDS: cefTRIAXone\\ROCEPHIN 1 GM in Sodium Chloride 0.9% 100 ML IVPB SCH (23:22)
--- NOTE | 2019-11-06 08:12 | DIS ---
DATE OF ADMISSION: 11/04/2019 DATE OF DISCHARGE: 11/05/2019 DISCHARGE DIAGNOSES: 1. Type-[address] elevation, medical management. 2. Suicidal/homicidal behavior. 3. Acute kidney injury on chronic kidney disease stage 4. 4. Ischemic cardiomyopathy with ejection fraction of 35% to 40%. 5. Diabetes mellitus type 2 with diabetic nephropathy. 6. Peripheral vascular disease, status post left [id number] amputation. 7. Physical deconditioning. 8. Tobacco abuse. 9. Urinary tract infection with gram-negative rods. CONSULTATIONS: Dr. Liriano with Cardiology Service. [facility] Service. PERTINENT LABORATORY AND X-RAY FINDINGS: Creatinine ranged between 1.86 to 2.42. Estimated GFR ranged between 28 to 38. Serum iron level 53, TIBC 213, ferritin 190. Magnesium level 2.2. Troponin-I ranged between 0.028 to 0.033. Total cholesterol 137, triglycerides 260, HDL 17, LDL 68. TSH 2.83. CBC showed a hemoglobin ranging between 10.1 to 12.0. Urine drug screen dated 11/02/2019 negative. Beta-hydroxybutyrate level 0.23. Urine culture dated 11/02/2019 showed 2 species of gram-negative rods, final identification pending. Portable chest x-ray dated 11/02/2019 showed no acute cardiopulmonary process. 2D transthoracic echocardiogram dated 11/03/2019 showed ejection fraction of 35% to 40%. Akinesis of the mid and distal anterior wall, apex, and inferior wall compatible with old infarct. HOSPITAL COURSE: The patient was initially admitted after complaining of persistent chest pain. Serial cardiac biomarkers were performed showing evidence of a [id number]-UW-[id number] myocardial infarction type 2, prompting Cardiology consultation. The patient underwent general evaluation with recommendations for medical management due to history of noncompliance and concern for followup and multiple comorbid conditions including chronic kidney disease stage 4. The patient was continued on aspirin therapy and monitored for clinical response. 2D transthoracic echocardiogram did show evidence of cardiomyopathy with ejection fraction of 35% to 40%. During the patient's hospitalization, the patient made statements regarding an intent to harm himself as well as others in his family and wanted to leave the hospital against medical advice. Due to these statements, [facility] was consulted with the recommendation to pursue inpatient psychiatric care for further monitoring in a controlled environment. The patient remained clinically stable during the hospital course under medical management and has been approved to transfer to [facility] in [place], [place], on 11/05/2019. I have examined the patient at the time of discharge and discussed followup instructions. The patient was clinically stable and ready for discharge on 11/05/2019. DISCHARGE MEDICATIONS: 1. Amlodipine 5 mg p.o. daily. 2. Clonidine 1 patch transdermally weekly. 3. Digoxin 0.125 mg p.o. daily. 4. Pepcid 40 mg p.o. b.i.d. 5. Tradjenta 5 mg p.o. daily. 6. Enteric-coated aspirin 81 mg p.o. daily. 7. Omnicef 300 mg p.o. daily x5 days. 8. Gabapentin 300 mg p.o. t.i.d. 9. Glargine insulin 10 units subcutaneously q.a.m. 10. Toprol-XL 50 mg p.o. daily. 11. Nicotine patch 14 mg transdermally q.24 hours. 12. Crestor 20 mg p.o. at bedtime. 13. Flomax 0.4 mg p.o. daily. 14. Tramadol 50 mg p.o. q.6 hours p.r.n. pain. FOLLOWUP: The patient may follow up with his primary care provider, Dr. Navya Cole, after discharge from inpatient psychiatric care. The patient will transfer to [facility] in [place], [place], on 11/05/2019. CONDITION ON DISCHARGE: Guarded. ACTIVITY: Ad-rohini. DIET: Heart healthy and ADA. CODE STATUS: Full. DISPOSITION: Transfer to [facility] psychiatric unit in [place], [place], on 11/05/2019. TIME SPENT: Total time preparing and coordinating discharge, 33 minutes. Job ID: [id number]
--- NOTE | 2019-11-08 05:55 | PQF ---
[employer] Custodian Crystal Reports Winform Viewer MAULIK HARRIS CHARLES [id number] [facility]-291 [id number] CLINICAL DOCUMENTATION CLARIFICATION FORM: POST DISCHARGE Addendum to original discharge summary date: ____ Late entry note date: __ DATE: 11/08/19 ATTN: [place] Please exercise your independent, professional judgment in responding to the clarification form. Clinical indicators are provided on the bottom of this form for your review Can you please further clarify the etiology of type 2 AZ? Please check appropriate box(s): Type 2 AZ due to: [ ] Atrial fibrillation [ x ] Demand ischemia [ ] Right bundle block [ ] Coronary artery disease [ ] Ischemic cardiomyopathy [ ] Other diagnosis please specify [ ] Unable to determine In addition, please specify: Present on Admission (POA): [ x ] Yes [ ] No [ ] Unable to determine CLINICAL INDICATORS - SIGNS / SYMPTOMS / LABS H and P pg.1- chest pain x 2 weeks H and P pg.1- Chest x ray was negative for any acute process H and P pg.4- EKG was AFIB, rate controlled with right bundle branch block PN 11/03- underlying CAD Laboratory- Troponin- 0.033H, 0.030H, 0.028 DS pg.1- complaining of persistent chest pain DS pg.1- Serial cardiac biomarkers were performed showing evidence of a non-ST elevation myocardial infarction type 2 RISKS: TINO on CKD 4- DS pg.1 ischemic cardiomyopathy- DS pg.1 UTI- DS pg.1 Non compliance- DS pg.1 CHF- H and P pg.1 COPD- H and P pg.1 Hyperlipidemia- H and P pg.1 TREATMENTS: Chest X ray 11/01 Cardiology Consult 11/02 Dr. Liriano Echocardiogram 11/02 IV Fluids- MAR EKG- ED Provider Nitroglycerin 0.4mg PO- MAR Heparin 1000 units IV- MAR Aspirin 80mg PO- MAR (This form is maintained as a part of the permanent medical record) 2014 [employer] All Rights Reserved [email or web address]
== END 2019-11-05 23:45 | DRG 281 ==
LOC: ERS 16:49 → 2NO 19:45 → OBSVTOIN 11-04 09:38
PROVIDERS: ADMIT Internal Medicine; ATTEND Internal Medicine
DX: I21.A1 Myocardial infarction type 2 (principal); N17.9 Acute kidney failure, unspecified; N39.0 Urinary tract infection, site not specified; I13.0 Hypertensive heart and chronic kidney disease with heart failure and stage 1 through stage 4 chronic kidney disease, or unspecified chronic kidney disease; R45.851 Suicidal ideations; I50.22 Chronic systolic (congestive) heart failure; N18.4 Chronic kidney disease, stage 4 (severe); I25.5 Ischemic cardiomyopathy; I25.10 Atherosclerotic heart disease of native coronary artery without angina pectoris; E78.5 Hyperlipidemia, unspecified; I48.91 Unspecified atrial fibrillation; N40.0 Benign prostatic hyperplasia without lower urinary tract symptoms; F17.210 Nicotine dependence, cigarettes, uncomplicated; E11.51 Type 2 diabetes mellitus with diabetic peripheral angiopathy without gangrene; I45.10 Unspecified right bundle-branch block; E11.65 Type 2 diabetes mellitus with hyperglycemia; D63.1 Anemia in chronic kidney disease; E11.22 Type 2 diabetes mellitus with diabetic chronic kidney disease; B96.89 Other specified bacterial agents as the cause of diseases classified elsewhere; J44.9 Chronic obstructive pulmonary disease, unspecified; Z79.01 Long term (current) use of anticoagulants; Z89.512 Acquired absence of left leg below knee; Z88.5 Allergy status to narcotic agent; Z88.8 Allergy status to other drugs, medicaments and biological substances; Z79.899 Other long term (current) drug therapy; Z79.4 Long term (current) use of insulin; Z79.51 Long term (current) use of inhaled steroids; Z11.4 Encounter for screening for human immunodeficiency virus [HIV]
CPT/HCPCS: 36415; 36416; 71045; 80048; 80053; 80061; 80306; 81003; 81015; 82010; 82330; 82553; 82565; 82728; 82803; 83540; 83550; 83690; 83735; 83880; 84443; 84484; 85007; 85014; 85018; 85025; 85027; 85049; 85730; 87077; 87086; 87186; 93005; 93306; 94640; 94760; 96361; 96374; J0696; J1644; J1650; J1815; J3475; J3490; J7620